=== PATIENT | male | born 1950 | race Caucasian/White ===

== ENCOUNTER 2023-07-02 12:33 | Inpatient (IN) ==
--- NOTE | 2023-07-02 13:08 | Emergency Department Note ---
History of Present Illness General Chief complaint: Fall Time Seen by Provider: 07/02/23 12:54 History of Present Illness Provider complaint: Recurrent falls 73-year-old male with history of Parkinson's disease on no blood thinners presents emergency department for recurrent falls. Patient reports he fell 4 times and could not get up to Call EMS. Patient states he does not have any pain. Patient states on the fourth time they state he could not refuse to come to the emergency department they brought him here even though he does not want to be here. Patient states she keeps falling because his is currently ill who usually resides with him and she is in a assisted. Patient denies any pain. No fevers. No nausea vomiting or diarrhea. Home Medications Medication Instructions Recorded Confirmed Type L.acidophilus-L.plantarum-B.animalis-B.longum 1 cap PO TIDM 07/02/23 07/02/23 History 2 billion cell capsule (Probiotic Acidophilus Beads) acetaminophen 500 mg tablet 500 - 1,000 mg PO DIRECTED PRN 07/02/23 07/02/23 History (Tylenol Extra Strength) PAIN/FEVER albuterol sulfate 2.5 mg/3 mL 2.5 mg inhalation DIRECTED PRN 07/02/23 07/02/23 History (0.083 %) solution for nebulization Shortness Of Breath Or Wheezing amlodipine 2.5 mg tablet 2.5 mg PO DAILY 07/02/23 07/02/23 History aspirin 81 mg tablet,delayed 81 mg PO DAILY 07/02/23 07/02/23 History release atorvastatin 20 mg tablet 20 mg PO DAILY 07/02/23 07/02/23 History carbidopa 25 mg-levodopa 100 mg 1 tab PO TID 07/02/23 07/02/23 History tablet carbidopa ER 50 mg-levodopa 200 mg 1 tab PO TID 07/02/23 07/02/23 History tablet,extended release cetirizine 10 mg tablet (Zyrtec) 10 mg PO DAILY PRN RHINITIS 07/02/23 07/02/23 History cholecalciferol (vitamin D3) 50 50 mcg PO DAILY 07/02/23 07/02/23 History mcg (2,000 unit) capsule (Vitamin D3) diphenhydramine HCl 50 mg capsule 50 mg PO HS PRN Itching 07/02/23 07/02/23 History finasteride 5 mg tablet 5 mg PO DAILY 07/02/23 07/02/23 History insulin human U-100 NPH-regulr See Rx Instructions .Route .COMPLEX 07/02/23 07/02/23 History 70-30 mix 100 unit/mL subcutaneous susp (Novolin 70/30 U-100 Insulin) lisinopril 20 1 tab PO DAILY 07/02/23 07/02/23 History mg-hydrochlorothiazide 25 mg tablet metformin 1,000 mg tablet 1,000 mg PO BIDM 07/02/23 07/02/23 History gzohwsacttyf-qkq-jzpju acid-vit 1 tab PO DAILY 07/02/23 07/02/23 History K-lycop 400 mcg-20 mcg-370 mcg tablet (Men's 50 Plus Multivitamin) nicotine (polacrilex) 4 mg gum 4 mg buccal DIRECTED PRN 07/02/23 07/02/23 History (Nicorette) Smoking Cessation omeprazole 20 mg capsule,delayed 20 mg PO BID 07/02/23 07/02/23 History release tamsulosin 0.4 mg capsule 0.4 mg PO DAILY 07/02/23 07/02/23 History tramadol 50 mg tablet 50 mg PO Q6H PRN Pain 07/02/23 07/02/23 History Allergies Allergy/AdvReac Type Severity Reaction Status Date / Time Iodinated Contrast Media Allergy Intermediate Hives Verified 07/02/23 16:20 Past Med/Surg History Medical History No pertinent family history Parkinson disease Surgical History No pertinent past surgical history Social History Smoking Status: Former smoker Preferred Language: [place] Feels Safe at Home: Yes Physical Exam Vital Signs Vital Signs - 24 hr 07/02/23 12:43 07/02/23 13:14 07/02/23 13:20 Temperature 37.4 C Temperature Source Oral Pulse Rate 94 H 80 81 Pulse Rate from SpO2 Sensor 81 Respiratory Rate 14 19 Blood Pressure 164/98 H Blood Pressure Mean 120 Pulse Oximetry 94 Oxygen Delivery Method Sepsis Recent Fever Within 48 Hours No Sepsis New/Unexplained Change in Mental Status N/A Sepsis Action Taken by Nursing No Action Required 07/02/23 13:30 07/02/23 13:30 07/02/23 14:37 Temperature Temperature Source Pulse Rate 86 72 Pulse Rate from SpO2 Sensor 72 Respiratory Rate 25 H 20 Blood Pressure 136/98 Blood Pressure Mean 103 Pulse Oximetry 95 Oxygen Delivery Method Sepsis Recent Fever Within 48 Hours Sepsis New/Unexplained Change in Mental Status Sepsis Action Taken by Nursing 07/02/23 14:37 07/02/23 15:32 07/02/23 16:31 Temperature Temperature Source Pulse Rate 73 72 Pulse Rate from SpO2 Sensor Respiratory Rate 17 23 Blood Pressure 139/83 142/82 H 158/90 H Blood Pressure Mean 117 102 112 Pulse Oximetry 96 95 Oxygen Delivery Method Room Air Room Air Sepsis Recent Fever Within 48 Hours Sepsis New/Unexplained Change in Mental Status Sepsis Action Taken by Nursing 07/02/23 17:01 07/02/23 17:19 Temperature Temperature Source Pulse Rate 68 70 Pulse Rate from SpO2 Sensor Respiratory Rate 19 Blood Pressure 143/72 H Blood Pressure Mean 95 Pulse Oximetry 96 Oxygen Delivery Method Room Air Sepsis Recent Fever Within 48 Hours Sepsis New/Unexplained Change in Mental Status Sepsis Action Taken by Nursing Physical Exam GENERAL: He appears well-developed and well-nourished. He does not appear distressed. HENT: Exam performed. - Head: Normocephalic and atraumatic. EYES: Conjunctivae and EOM are normal. Pupils are equal, round, and reactive to light. Right eye exhibits no discharge. Left eye exhibits no discharge. No scleral icterus. NECK: Normal range of motion. Neck supple. No JVD present. No spinous process tenderness present. CV: Normal rate, regular rhythm, normal heart sounds and intact distal pulses. There is no peripheral edema. Palpable radial pulses bue. PULM/CHEST: Effort normal and breath sounds normal. No respiratory distress. No stridor. He has no wheezes. He has no rales. ABD: The abdomen is soft. He has no distension. No mass is present. There is no tenderness. There is no rebound, no guarding. MUSC/SKEL: Pelvis stable. LYMPH: No cervical adenopathy. NEURO: He is alert and oriented to person, place, and time. He has normal strength. No cranial nerve deficit or sensory deficit. Mild tremor of the left upper extremity. SKIN: Skin is warm and dry. He is not diaphoretic. PSYCH: He has a normal mood and affect. Behavior is normal. Judgment and thought content normal. Course Course 1254: The patient was evaluated in room B3. A complete history and physical exam was performed Medical Decision Making Laboratory Data Attestation: I reviewed the patient's lab results. 07/02/23 15:00 07/02/23 15:00 Lab Results 07/02/23 07/02/23 07/02/23 Range/Units 15:00 15:32 17:23 WBC 5.45 (4.8-10.8) K/ul RBC 4.50 L (4.70-6.10) M/uL Hgb 12.2 L (14.0-18.0) g/dl Hct 37.0 L (42.0-52.0) % MCV 82.2 (80.0-100.0) fL MCH 27.1 (25.0-34.0) pg MCHC 33.0 (32.0-36.0) g/dL RDW Std Deviation 41.5 (36.4-46.3) fL RDW Coeff of Monica 14.0 (11.5-14.5) % Plt Count 187 (130-400) K/uL MPV 10.9 (9.4-12.4) fL Immature Gran % (Auto) 0.4 % Neut % (Auto) 64.3 % Lymph % (Auto) 16.7 % Mccormick % (Auto) 17.1 % Eos % (Auto) 0.2 % Baso % (Auto) 1.3 % Neut # (Auto) 3.51 (1.40-6.50) K/uL Lymph # (Auto) 0.91 L (1.20-3.40) K/uL Mccormick # (Auto) 0.93 H (0.11-0.59) K/uL Eos # (Auto) 0.01 (0.00-0.50) K/uL Baso # (Auto) 0.07 (0.00-0.20) K/uL Immature Gran # (Auto) 0.02 (0.01-0.20) K/uL Sodium 137 (136-145) mmol/L Potassium 3.7 (3.5-5.1) mmol/L Chloride 103 (98-107) mmol/L Carbon Dioxide 27 (21-32) mmol/L Anion Gap 7 (3-11) BUN 21 (6-23) mg/dl Creatinine 1.39 (0.6-1.4) mg/dl Est Cr Clr Drug Dosing 66.7 ml/min Est GFR ( Amer) 58.7 ml/min Est GFR (Non-Af Amer) 50.6 ml/min BUN/Creatinine Ratio 15.1 (10-20) Glucose 59 L (70-99(Fasting)) mg/dl POC Glucose 58 L* (70-99) mg/dl Calcium 9.1 (8.6-10.3) mg/dl Urine Color Yellow Urine Appearance Clear (Clear) Urine pH 5.5 (4.5-7.5) Ur Specific [place] 1.022 (1.000-1.030) Urine Protein 3+ H (Negative) Urine Glucose (UA) Trace H (Negative) Urine Ketones Negative (Negative) Urine Blood Negative (Negative) Urine Nitrite Negative (Negative) Urine Bilirubin Negative (Negative) Urine Urobilinogen Negative (Negative) Ur Leukocyte Esterase Negative (Negative) Urine WBC (Auto) 1-5 (0-5) /hpf Urine RBC (Auto) 0-4 (0-4) /hpf U Hyaline Cast (Auto) 1-5 (0-5) /lpf U Epithel Cells (Auto) 10-20 H (0-5) /lpf Urine Bacteria (Auto) Negative (Negative) Imaging Data Attestation: I personally reviewed and interpreted this imaging study as follows: My Impression: Chest x-ray: Chest x-ray negative. Airway clear. No pneumothorax. No consolidation. No cardiomegaly or cephalization.. No free air under the diaphragm. No fractures of the skeletal structures. Pelvis x-ray: No acute fracture or dislocation Radiologist's Impression: Cervical Spine CT 07/02/23 13:[address] DOSE: 1186.28 mGy.cm HISTORY: fall TECHNIQUE: Multiaxial CT images of the cervical spine were performed and reformatted in the sagittal and coronal plane without the use of contrast. A dose lowering technique was utilized adhering to the principles of ALARA. COMPARISON: None. FINDINGS: No fractures. No subluxation. Prevertebral soft tissues and the C1-C2 interval are intact. No pneumothorax. IMPRESSION: No fractures within the cervical spine. ACT 112: Negative or not required by law. Electronically signed by: Stepan Zamudio M.D. 07/02/2023 2:[address] 07/02/23 13:00 CT head/brain wo con CLINICAL HISTORY: fall Technique: Contiguous axial CT images of the head were acquired from the base of the skull to the vertex without intravenous contrast administration. Images were viewed in brain, subdural and bone windows. Automated dose lowering techniques and/or adjustment according to patient size were utilized for this exam. Comparison: None available at the time of this dictation. Findings: Areas of decreased attenuation are present in the periventricular and subcortical white matter bilaterally consistent with small vessel ischemic disease. Generalized cerebral atrophy with commensurate enlargement of the ventricles, sulci, and cisterns is also present. There is no acute intracranial hemorrhage or evidence of acute territorial infarction. No shift of the midline structures, mass effect, or extra-axial abnormalities are shown. Atherosclerotic calcifications are present in the intracranial segments of the internal carotid arteries. Imaged portions of the paranasal sinuses and mastoid air cells are clear. The orbits appear normal. There are no acute fractures of the calvaria or scalp swelling. Impression: No acute intracranial hemorrhage, no evidence of acute territorial infarction or other acute intracranial disease process. ACT 112: Negative or not required by law. Electronically signed by: Jonatan Gale M.D. 07/02/2023 1:54 PM Chest X-Ray 07/02/23 13:01 SINGLE VIEW CHEST CLINICAL HISTORY: Fall. FINDINGS: An AP, portable, upright chest radiograph is obtained. No prior studies are available for comparison at the time of dictation. The heart is enlarged. The pulmonary vasculature is noncongested. There is mild bibasilar scarring/atelectasis. The lungs and pleural spaces are otherwise clear. No pneumothorax is seen. The skeletal structures are osteopenic. The bony thorax is grossly intact. IMPRESSION: No active disease in the chest. ACT 112: Negative or not required by law. Electronically signed by: Nicholas Bey M.D. 07/02/2023 1:38 PM Pelvis X-Ray 07/02/23 13:01 XR pelvis 1-2V routine CLINICAL HISTORY: fall. Pelvic pain. COMPARISON STUDY: None FINDINGS: No fracture or dislocation within the pelvis or hips. The sacrum is intact. Mild osteoarthritis within the bilateral hips. Soft tissues are unremarkable. IMPRESSION: No fracture or dislocation within the pelvis or hips. ACT 112: Negative or not required by law. Electronically signed by: Stepan Zamudio M.D. 07/02/2023 1:32 PM ECG Data Attestation: I personally reviewed and interpreted this ECG as follows: Rate (beats per minute): 92 Rhythm: + normal sinus ECG Intervals/blocks: + Normal QRS, + Normal SD and + Normal QT-c ECG ST segments: + Normal ST segments MDM Narrative Cardiac monitoring: An order was placed for continuous cardiac monitoring. The monitor shows a rate of 90 with sinus rhythm interpreted by me Vital signs stable. Labs and imaging within normal limits. 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 [facility] request of case management for the patient to be admitted for placement in assisted. Spoke with Jacey who accepted the patient to Dr. Norman service Impression & Plan Parkinson disease, Recurrent falls Discharge Plan Visit Data Chief Complaint: Fall ED Provider: Cody Mckeon Discharge Problem: Parkinson disease, Recurrent falls Patient Disposition: Admitted As Inpatient Forms Stand Alone Forms: [facility] Prescriptions Prescriptions: No Action atorvastatin 20 mg Tablet 20 mg PO DAILY albuterol sulfate [Proventil] 2.5 mg /3 mL (0.083 %) Solution For Nebulization 2.5 mg INHALATION DIRECTED PRN (Reason: Shortness Of Breath Or Wheezing) diphenhydramine HCl [Benadryl] 50 mg Capsule 50 mg PO HS PRN (Reason: Itching) cetirizine [Zyrtec] 10 mg Tablet 10 mg PO DAILY PRN (Reason: RHINITIS) carbidopa-levodopa 50-200 mg tablet extended release 1 tab PO TID Rx Instructions: TAKES AT 0700, 1000, & 1600 Novolin 70/30 U-100 Insulin 100 unit/mL (70-30) suspension See Rx Instructions .ROUTE .COMPLEX Rx Instructions: TAKES 39 UNITS QAM, THEN 35 UNITS QPM. amlodipine 2.5 mg tablet 2.5 mg PO DAILY aspirin 81 mg Tablet,Delayed Release (Dr/Ec) 81 mg PO DAILY tramadol 50 mg Tablet 50 mg PO Q6H PRN (Reason: Pain) acetaminophen [Tylenol Extra Strength] 500 mg Tablet 500 - 1,000 mg PO DIRECTED PRN (Reason: PAIN/FEVER) tamsulosin 0.4 mg capsule 0.4 mg PO DAILY nicotine (polacrilex) [Nicorette] 4 mg Gum 4 mg BUCCAL DIRECTED PRN (Reason: Smoking Cessation) metformin 1,000 mg tablet 1,000 mg PO BIDM omeprazole 20 mg capsule,delayed release(DR/EC) 20 mg PO BID Rx Instructions: TAKE 30 MINUTES PRIOR TO MEALS lisinopril-hydrochlorothiazide 20-25 mg Tablet 1 tab PO DAILY carbidopa-levodopa 25-100 mg tablet 1 tab PO TID Rx Instructions: TAKES AT 1300, 1900, & HS finasteride 5 mg tablet 5 mg PO DAILY cholecalciferol (vitamin D3) [Vitamin D3] 50 mcg (2,000 unit) Capsule 50 mcg PO DAILY Men's 50 Plus Multivitamin 400-20-370 mcg Tablet 1 tab PO DAILY Probiotic Acidophilus Beads 2 billion cell Capsule 1 cap PO TIDM Referrals Referrals: PCP,NO [Physician] -
--- NOTE | 2023-07-02 13:33 | XRay Report ---
XR pelvis 1-2V routine CLINICAL HISTORY: fall. Pelvic pain. COMPARISON STUDY: None FINDINGS: No fracture or dislocation within the pelvis or hips. The sacrum is intact. Mild osteoarthr itis within the bilateral hips. Soft tissues are unremarkable. IMPRESSION: No fracture or dislocation within the pelvis or hips. ACT 112: Negative or not required by law. Electronically signed by: Stepan Zamudio M.D. 07/02/2023 1:32 PM
--- NOTE | 2023-07-02 13:39 | XRay Report ---
SINGLE VIEW CHEST CLINICAL HISTORY: Fall. FINDINGS: An AP, portable, upright chest radiograph is obtained. No prior studies are available for c omparison at the time of dictation. The heart is enlarged. The pulmonary vasculature is noncongested. There is mild bibasilar scarring/atelectasis. The lungs and pleural spaces are otherwise clear. No p neumothorax is seen. The skeletal structures are osteopenic. The bony thorax is grossly intact. IMPRESSION: No active disease in the chest. ACT 112: Negative or not required by law. Electronically signed by: Nicholas Bey M.D. 07/02/2023 1:38 PM
--- NOTE | 2023-07-02 13:56 | CT Scan Report ---
CT head/brain wo con CLINICAL HISTORY: fall Technique: Contiguous axial CT images of the head were acquired from the base of the skull to the herrera chanell without intravenous contrast administration. Images were viewed in brain, subdural and bone [facility]. Automated dose lowering techniques and/or adjustment according to patient size were utilized for this exam. Comparison: None available at the time of this dictation. Findings: Areas of decreased attenuation are present in the periventricular and subcortical white matter bilate rally consistent with small vessel ischemic disease. Generalized cerebral atrophy with commensurate e nlargement of the ventricles, sulci, and cisterns is also present. There is no acute intracranial hem orrhage or evidence of acute territorial infarction. No shift of the midline structures, mass effect, or extra-axial abnormalities are shown. Atherosclerotic calcifications are present in the intracran ial segments of the internal carotid arteries. Imaged portions of the paranasal sinuses and mastoid air cells are clear. The orbits appear normal. There are no acute fractures of the calvaria or scalp swelling. Impression: No acute intracranial hemorrhage, no evidence of acute territorial infarction or other acute intracra nial disease process. ACT 112: Negative or not required by law. Electronically signed by: Jonatan Gale M.D. 07/02/2023 1:54 PM
--- NOTE | 2023-07-02 14:17 | CT Scan Report ---
CERVICAL SPINE CT CT DOSE: 1186.28 mGy.cm HISTORY: fall TECHNIQUE: Multiaxial CT images of the cervical spine were performed and reformatted in the sagittal and coronal plane without the use of contrast. A dose lowering technique was utilized adhering to th e principles of ALARA. COMPARISON: None. FINDINGS: No fractures. No subluxation. Prevertebral soft tissues and the C1-C2 interval are intact. No pneumothorax. IMPRESSION: No fractures within the cervical spine. ACT 112: Negative or not required by law. Electronically signed by: Stepan Zamudio M.D. 07/02/2023 2:15 PM
--- NOTE | 2023-07-02 15:19 | Electrocardiogram Report ---
Test Reason : Blood Pressure : / mmHG Vent. Rate : 092 BPM Atrial Rate : 092 BPM P-R Int : 174 ms QRS Dur : 092 ms QT Int : 352 ms P-R-T Axes : 036 038 027 degrees QTc Int : 435 ms Normal sinus rhythm Normal ECG No previous ECGs available Confirmed by Len Green ([id number]) on 07/02/2023 3:19:16 PM Referred By: Confirmed By:Len Green
[2023-07-02 15:50] LABS: Appearance Urine Clear (Clear); Bacteria Urine Automated Negative (Negative); Bilirubin Urine Negative (Negative); Blood Urine Negative (Negative); Color Urine Yellow; Glucose Urine UA Trace (Negative); Ketones Urine Negative (Negative); Leukocyte Esterase Urine Negative (Negative); Nitrite Urine Negative (Negative); Protein Urine 3+ (Negative); RBC Urine Automated 0-4 /hpf (0-4); Specific Gravity Urine 1.022 (1.000-1.030); Urobilinogen Urine Negative (Negative); pH Urine 5.5 (4.5-7.5)
[2023-07-02 15:58] LABS: BUN Creatinine Ratio 15.1 (10-20); Basophils # (auto) 0.07 K/uL (0.00-0.20); Basophils % (auto) 1.3 %; Calcium 9.1 mg/dl (8.6-10.3); Creatinine Clr Calc Pharmacy 66.7 ml/min; Eosinophils # (auto) 0.01 K/uL (0.00-0.50); Eosinophils % (auto) 0.2 %; Est GFR (African American) 58.7 ml/min; Est GFR (Non-African American) 50.6 ml/min; Hemoglobin 12.2 g/dl (14.0-18.0); Immature Granulocytes # (auto) 0.02 K/uL (0.01-0.20); Immature Granulocytes % (auto) 0.4 %; Lymphocytes # (auto) 0.91 K/uL (1.20-3.40); Lymphocytes % (auto) 16.7 %; Mean Corpuscular Hemoglobin 27.1 pg (25.0-34.0); Mean Corpuscular Volume 82.2 fL (80.0-100.0); Mean Platelet Volume 10.9 fL (9.4-12.4); Monocytes # (auto) 0.93 K/uL (0.11-0.59); Monocytes % (auto) 17.1 %; Neutrophils # (auto) 3.51 K/uL (1.40-6.50); Neutrophils % (auto) 64.3 %; Platelet Count 187 K/uL (130-400); Potassium 3.7 mmol/L (3.5-5.1); RDW Standard Deviation 41.5 fL (36.4-46.3); White Blood Count 5.45 K/ul (4.8-10.8)
--- NOTE | 2023-07-02 16:58 | History & Physical Report ---
<Statement entered by Cody Norman MD - 07/08/23 21:12> reviewed finding of rn hematology. examined patient . Date of Service July 02, 2023 Assessment & Plan (1) Weakness: (2) Recurrent falls: (3) Parkinson disease: Plan: Patient is 73 year old male with PMH Parkinson's, DM II, CKD III, HTN, BPH, GERD, DIANNE, depression, chronic anemia, and others listed below presented to ER with complaint of several falls today. Ambulates with use of cane at baseline CT head: No acute intracranial abnormality CT C-spine: No acute fracture Pelvics x-ray: No acute fracture No leukocytosis, random glucose: 59, no other significant electrolyte abn ormality Recurrent falls today and weakness likely secondary to underlying COVID-19 infection Fall precautions PT/OT eval Continue home Sinemet Follows with [facility] [place] neurology outpatient CBC, BMP in a.m. If patient requires inpatient rehab would like [facility] as his spouse is currently at [facility] (4) COVID-19: Plan: In ER patient afebrile, no hypoxia, vital stable. [employer] respiratory panel + SARS-CoV-2 PCR Chest x-ray: No acute infiltrate Rhinorrhea, otherwise without sore throat, cough, chest pain, shortness of breath Airborne isolation Currently not requiring supplemental oxygen. No indication for steroids or remdesivir Incentive spirometry, flutter valve CBC, BMP in am (5) Hypoglycemia: (6) Diabetes mellitus, type II: Plan: Random glucose in ER 59. Patient has not eaten today. He is unsure if he took his morning insulin Patient given apple juice and peanut butter crackers with repeat BSG 154 Diabetic diet A1c: 8.7 on 12/13/2022 Hold home metformin and Novolin 12/29 Basal bolus insulin per protocol (7) HTN (hypertension): Plan: Continue amlodipine, lisinopril, HCTZ (8) CKD (chronic kidney disease), stage III: Plan: Cr: 1.39. Baseline 1.2 Monitor renal functions, avoid nephrotoxic agents when possible (9) GERD (gastroesophageal reflux disease): Plan: Continue PPI (10) BPH (benign prostatic hyperplasia): Plan: Continue tamsulosin, finasteride (11) DIANNE (obstructive sleep apnea): Plan: CPAP at bedtime (12) Chronic anemia: Plan: Hgb: 12. Baseline Hgb 12 Monitor H&H DVT Prophylaxis Lovenox SQ Full Code as per discussion with pt Follows with Dr Lynch for routine care Pt was seen and care coordinated with Dr Norman. See addendum I spent a total of 76 minutes reviewing notes, outpatient records, labs, medication, coordinating, documenting and providing care for this patient excluding time spent in the performance of separately billed services. History of Present Illness Chief Complaint: Falls Primary Care Provider: Toi Lynch MD Patient is 73 year old male with PMH Parkinson's, DM II, CKD III, HTN, BPH, GERD, DIANNE, depression, chronic anemia, and others listed below presented to ER with complaint of several falls today. History obtained from patient as well as outpatient chart review. Patient states history ambulatory dysfunction and uses cane and hangs onto furniture and puckett at home to ambulate at baseline. He states he usually will have a couple of falls a month. Patient states when he does fall he is unable to get himself up and typically needs to call EMS for lift assist. Patient states today was feeling fatigued. He states he was ambulating through his house when he felt like he was falling forward and had fell to the floor. He states just generally feels weaker than baseline but denies any unilateral weakness. He was unable to get himself up and called EMS. Patient states had 3-4 falls today all requiring EMS for lift assist. The last fall they suggested patient be evaluated to ER. Patient denies any dizziness, chest pain, shortness of breath prior to falls. Denies hitting head or loss of consciousness. Patient reports chronic rhinorrhea and does not feel like he has had increased rhinorrhea. He denies any fever, chills, cough, shortness of breath. He is currently living home alone as his is currently in snf. States last week his COVID-19 and he was visiting her daily. Denies history of COVID-19 vaccine. Denies fever/chills, diaphoresis, N/V/D/C, VELÁSQUEZ, dizziness, syncope, vision changes, neck pain, CP, SOB, cough, sore throat, otalgia, abdominal pain, paresthesias, extremity edema, rashes, urinary symptoms. Allergies Allergy/AdvReac Type Severity Reaction Status Date / Time Iodinated Contrast Media Allergy Intermediate Hives Verified 07/02/23 16:20 Home Medications Medication Instructions Recorded Confirmed Type acetaminophen 500 mg tablet 500 - 1,000 mg PO DIRECTED PRN 07/02/23 07/02/23 History (Tylenol Extra Strength) PAIN/FEVER albuterol sulfate 2.5 mg/3 mL 2.5 mg inhalation DIRECTED PRN 07/02/23 07/02/23 History (0.083 %) solution for nebulization Shortness Of Breath Or Wheezing amlodipine 2.5 mg tablet 2.5 mg PO DAILY 07/02/23 07/02/23 History aspirin 81 mg tablet,delayed 81 mg PO DAILY 07/02/23 07/02/23 History release atorvastatin 20 mg tablet 20 mg PO DAILY 07/02/23 07/02/23 History carbidopa 25 mg-levodopa 100 mg 1 tab PO TID 07/02/23 07/02/23 History tablet carbidopa ER 50 mg-levodopa 200 mg 1 tab PO TID 07/02/23 07/02/23 History tablet,extended release cetirizine 10 mg tablet (Zyrtec) 10 mg PO DAILY PRN RHINITIS 07/02/23 07/02/23 History cholecalciferol (vitamin D3) 50 50 mcg PO DAILY 07/02/23 07/02/23 History mcg (2,000 unit) capsule (Vitamin D3) diphenhydramine HCl 50 mg capsule 50 mg PO HS PRN Itching 07/02/23 07/02/23 History finasteride 5 mg tablet 5 mg PO DAILY 07/02/23 07/02/23 History insulin human U-100 NPH-regulr See Rx Instructions .Route .COMPLEX 07/02/23 07/02/23 History 70-30 mix 100 unit/mL subcutaneous susp (Novolin 70/30 U-100 Insulin) lisinopril 20 1 tab PO DAILY 07/02/23 07/02/23 History mg-hydrochlorothiazide 25 mg tablet metformin 1,000 mg tablet 1,000 mg PO BIDM 07/02/23 07/02/23 History llezpemgtrwp-mqf-vaglu acid-vit 1 tab PO DAILY 07/02/23 07/02/23 History K-lycop 400 mcg-20 mcg-370 mcg tablet (Men's 50 Plus Multivitamin) nicotine (polacrilex) 4 mg gum 4 mg buccal DIRECTED PRN 07/02/23 07/02/23 History (Nicorette) Smoking Cessation omeprazole 20 mg capsule,delayed 20 mg PO BID 07/02/23 07/02/23 History release tamsulosin 0.4 mg capsule 0.4 mg PO DAILY 07/02/23 07/02/23 History tramadol 50 mg tablet 50 mg PO Q6H PRN Pain 07/02/23 07/02/23 History Past Med/Surg History Medical History Chronic anemia DIANNE (obstructive sleep apnea) BPH (benign prostatic hyperplasia) GERD (gastroesophageal reflux disease) CKD (chronic kidney disease), stage III HTN (hypertension) Diabetes mellitus, type II Parkinson disease Surgical History History of esophagogastroduodenoscopy (EGD) Hx of tonsillectomy History of gastric bypass Social History Smoking Status: Former smoker Preferred Language: [place] Leonean Feels Safe at Home: Yes Review of Systems Review of Systems: All systems reviewed & are unremarkable except as noted in HPI & below Physical Exam Physical Exam: General: no distress, obese Head: normocephalic, atraumatic Eyes: PERRL, EOM's intact, conjunctiva non-injected, anicteric ENT: normal inspection external ears, nose, +clear rhinorrhea, mucous membranes moist Neck: supple, trachea midline, non-tender Lungs: clear, no respiratory distress, no wheezing/rhonchi/rales CV: RRR, no murmur, no pretibial edema Abd: normal BS, soft, non-tender Ext: no cyanosis, no calf tenderness Neuro: A&O x 3, normal affect, +tremor, +pill rolling, strength 4/5 bilateral lower extremities, upper extremities 5/5 strength bilaterally Skin: warm, dry Results & Data Results & Data Vital Signs (Past 12 Hours) Vital Signs Temp Pulse Resp BP Pulse Ox 07/02/23 14:37 139/83 07/02/23 14:37 72 20 95 07/02/23 13:30 136/98 07/02/23 13:30 86 25 H 07/02/23 13:20 81 01/31/24 13:14 80 19 94 07/02/23 12:43 37.4 C 94 H 14 164/98 H Laboratory Results Short CBC 07/02/23 Range/Units 15:00 WBC 5.45 (4.8-10.8) K/ul Hgb 12.2 L (14.0-18.0) g/dl Hct 37.0 L (42.0-52.0) % Plt Count 187 (130-400) K/uL BMP 07/02/23 15:00 Sodium 137 Potassium 3.7 Chloride 103 Carbon Dioxide 27 BUN 21 Creatinine 1.39 Glucose 59 L Calcium 9.1 Urine 07/02/23 Range/Units 15:32 Urine Color Yellow Urine Appearance Clear (Clear) Urine pH 5.5 (4.5-7.5) Ur Specific [place] 1.022 (1.000-1.030) Urine Protein 3+ H (Negative) Urine Glucose (UA) Trace H (Negative) Diagnostic Findings Cervical Spine CT 07/02/23 13:[address] DOSE: 1186.28 mGy.cm HISTORY: fall TECHNIQUE: Multiaxial CT images of the cervical spine were performed and reformatted in the sagittal and coronal plane without the use of contrast. A dose lowering technique was utilized adhering to the principles of ALARA. COMPARISON: None. FINDINGS: No fractures. No subluxation. Prevertebral soft tissues and the C1-C2 interval are intact. No pneumothorax. IMPRESSION: No fractures within the cervical spine. ACT 112: Negative or not required by law. Electronically signed by: Stepan Zamudio M.D. 07/02/2023 2:[address] 07/02/23 13:00 CT head/brain wo con CLINICAL HISTORY: fall Technique: Contiguous axial CT images of the head were acquired from the base of the skull to the vertex without intravenous contrast administration. Images were viewed in brain, subdural and bone windows. Automated dose lowering techniques and/or adjustment according to patient size were utilized for this exam. Comparison: None available at the time of this dictation. Findings: Areas of decreased attenuation are present in the periventricular and subcortical white matter bilaterally consistent with small vessel ischemic disease. Generalized cerebral atrophy with commensurate enlargement of the ventricles, sulci, and cisterns is also present. There is no acute intracranial hemorrhage or evidence of acute territorial infarction. No shift of the midline structures, mass effect, or extra-axial abnormalities are shown. Atherosclerotic calcifications are present in the intracranial segments of the internal carotid arteries. Imaged portions of the paranasal sinuses and mastoid air cells are clear. The orbits appear normal. There are no acute fractures of the calvaria or scalp swelling. Impression: No acute intracranial hemorrhage, no evidence of acute territorial infarction or other acute intracranial disease process. ACT 112: Negative or not required by law. Electronically signed by: Jonatan Gale M.D. 07/02/2023 1:54 PM Chest X-Ray 07/02/23 13:01 SINGLE VIEW CHEST CLINICAL HISTORY: Fall. FINDINGS: An AP, portable, upright chest radiograph is obtained. No prior studies are available for comparison at the time of dictation. The heart is enlarged. The pulmonary vasculature is noncongested. There is mild bibasilar scarring/atelectasis. The lungs and pleural spaces are otherwise clear. No pneumothorax is seen. The skeletal structures are osteopenic. The bony thorax is grossly intact. IMPRESSION: No active disease in the chest. ACT 112: Negative or not required by law. Electronically signed by: Nicholas Bey M.D. 07/02/2023 1:38 PM Pelvis X-Ray 07/02/23 13:01 XR pelvis 1-2V routine CLINICAL HISTORY: fall. Pelvic pain. COMPARISON STUDY: None FINDINGS: No fracture or dislocation within the pelvis or hips. The sacrum is intact. Mild osteoarthritis within the bilateral hips. Soft tissues are unremarkable. IMPRESSION: No fracture or dislocation within the pelvis or hips. ACT 112: Negative or not required by law. Electronically signed by: Stepan Zamudio M.D. 07/02/2023 1:32 PM
[2023-07-02] MEDS ORDERED: DEXTROSE 50% 50 ML SYRINGE IV STA (17:47)
[2023-07-02 18:32] LABS: Adenovirus PCR Not Detected (NotDetected); Bordetella parapertussis PCR Not Detected (NotDetected); Bordetella pertussis PCR Not Detected (NotDetected); Chlamydia pneumoniae PCR Not Detected (NotDetected); Coronavirus 229E PCR Not Detected (NotDetected); Coronavirus HKU1 PCR Not Detected (NotDetected); Coronavirus NL63 PCR Not Detected (NotDetected); Coronavirus OC43PCR Not Detected (NotDetected); Human Metapneumovirus PCR Not Detected (NotDetected); Influenza A PCR Not Detected (NotDetected); Influenza B PCR Not Detected (NotDetected); Mycoplasma pneumoniae PCR Not Detected (NotDetected); Parainfluenza Virus 1 PCR Not Detected (NotDetected); Parainfluenza Virus 2 PCR Not Detected (NotDetected); Parainfluenza Virus 3 PCR Not Detected (NotDetected); Parainfluenza Virus 4 PCR Not Detected (NotDetected); Respiratory Syncytial VirusPCR Not Detected (NotDetected); Rhinovirus/Enterovirus PCR Not Detected (NotDetected)
[2023-07-02 18:40] LABS: Coronavirus CoV-2 (COVID19)PCR DETECTED (NotDetected)
[2023-07-02] MEDS ORDERED: CARBOHYDRATES FOR HYPOGLYCEMIA PO PRN (19:21)
[2023-07-02] MEDS ORDERED: DEXTROSE 50% 50 ML SYRINGE IV PRN (19:21)
[2023-07-02] MEDS ORDERED: ONDANSETRON INJ 2 MG/ML 2 ML VIAL IV PRN (19:21)
[2023-07-02] MEDS ORDERED: ALBUTEROL 0.083% NEBU SOLN 3 ML VIAL INH PRN (19:21)
[2023-07-02] MEDS ORDERED: POLYETHYLENE (MIRALAX) 17 GM PACK PO PRN (19:21)
[2023-07-02] MEDS ORDERED: ACETAMINOPHEN 325 MG TAB PO PRN (19:21)
[2023-07-02] MEDS ORDERED: GLUCOSE 10 TAB/TUBE PO PRN (19:21)
[2023-07-02] MEDS ORDERED: GLUCOSE 40% GEL 15 GM TUBE PO PRN (19:21)
[2023-07-02] MEDS ORDERED: GLUCAGON FOR INJ 1 MG VIAL SQ PRN (19:21)
[2023-07-02] MEDS: CARBIDOPA/LEVODOPA 25/100MG TAB PO SCH (20:53)
[2023-07-02] MEDS: INSULIN ASPART PER UNIT CHARGE SC SCH (20:58)
[2023-07-02] MEDS: LANTUS PER UNIT CHARGE SQ SCH (22:20)
[2023-07-03] MEDS: CARBIDOPA/LEVODOPA 50/200MG EXT REL TAB PO SCH ×3 (06:23→16:43)
[2023-07-03 07:34] LABS: Hematocrit (blood only) 34.2 % (42.0-52.0); Mean Corpuscular Hemoglobin 26.8 pg (25.0-34.0); Mean Corpuscular Hgb Conc 32.2 g/dL (32.0-36.0); Mean Corpuscular Volume 83.2 fL (80.0-100.0); Mean Platelet Volume 10.4 fL (9.4-12.4); Platelet Count 159 K/uL (130-400); RDW Coefficient of Variation 13.9 % (11.5-14.5); RDW Standard Deviation 42.1 fL (36.4-46.3); Red Blood Count 4.11 M/uL (4.70-6.10); White Blood Count 4.35 K/ul (4.8-10.8)
[2023-07-03 08:12] LABS: BUN Creatinine Ratio 13.4 (10-20); Calcium 8.7 mg/dl (8.6-10.3); Creatinine Clr Calc Pharmacy 68.1 ml/min; Est GFR (African American) 61.3 ml/min; Est GFR (Non-African American) 52.9 ml/min; Potassium 3.5 mmol/L (3.5-5.1)
[2023-07-03] MEDS ORDERED: BENZONATATE 100 MG CAPSULE PO PRN (08:12)
[2023-07-03] MEDS: ATORVASTATIN 20 MG TAB PO SCH (08:21)
[2023-07-03] MEDS: amLODIPine BESYLATE 5 MG TAB PO SCH (08:22)
[2023-07-03] MEDS: TAMSULOSIN HCL 0.4 MG CAP PO SCH (08:22)
[2023-07-03] MEDS: LISINOPRIL/HCTZ 20/25MG 1 TAB PO SCH (08:22)
[2023-07-03] MEDS: ASPIRIN 81 MG ECTAB PO SCH (08:23)
[2023-07-03] MEDS: PANTOprazole 40 MG TAB PO SCH (08:24)
[2023-07-03] MEDS: FINASTERIDE 5 MG TAB PO SCH (08:24)
[2023-07-03 08:40] LABS: Estimated Average Glucose 246 mg/dl; Hemoglobin A1C 10.2 % (4.5-5.6)
[2023-07-03] MEDS ORDERED: CHOLECALCIFEROL 25 MCG (1000 UNITS) TAB PO SCH (09:00)
[2023-07-03] MEDS: INSULIN ASPART PER UNIT CHARGE SC SCH ×4 (09:38→22:00)
[2023-07-03] MEDS: LANTUS PER UNIT CHARGE SQ SCH ×2 (09:39→21:59)
[2023-07-03] MEDS: ENOXAPARIN INJ 40 MG/0.4 ML SYR SQ SCH (09:47)
[2023-07-03] MEDS: FLUTICASONE PROPIONATE NA SPR 16 GM BTL SCH (09:47)
[2023-07-03] MEDS: CARBIDOPA/LEVODOPA 25/100MG TAB PO SCH ×3 (12:47→21:59)
[2023-07-03] MEDS ORDERED: LORATADINE 10 MG TAB PO PRN (13:10)
--- OUTSIDE RECORDS SUMMARY | 2023-07-03 13:55 | External Medical Summary | Summary of Care ---
Author Name Unknown Organization [facility] Address [address] [place] [address] Phone [phone] Care Team Providers Care Silk Screen Operator Name Role Phone Toi Buckner MD Primary Care Provider + Reason for Visit * Reason Comments eRx-Medication Refill Encounter Details Date Type Department Care Team (Late st Contact Info) Description 06/23/2023 Refill Family Practice [facility] [address] [place] [address] Toi Buckner MD [address] [place] [address] Vitamin D deficiency Allergies Active Allergy Reactions Criticality Noted Date Comments Iodinated Contrast Media 08/20/2013 Hives documented as of this encounter (statuses as of 06/23/2023) Medications Medication Sig Dispensed Refills Start Date End Date Status TYLENOL TABS 500 MG OR as needed 100 5 1 Active MENS MULTIVITAMIN PLUS PO TABS one daily 0 Active NICORETTE 4 MG MT GUM occasional 0 Active INSULIN SYRINGE-NEEDLE U-100 31G X 5/16" 1 ML MISCIndications:DM type 2, goal A1c below 7 use as directed 3 Box 11 5 Active ONE TOUCH ULTRASOFT LANCETS MISC 2 times a day. Use up to four times a day as directed 3 Box 3 5 Active Aspirin 81 MG Oral Tablet Delayed Release Take 1 Tablet by mouth in the morning. 0 Active Cetirizine HCl 10 MG Capsule Take 1 Capsule by mouth daily as needed for Rhinitis. 0 Active Glucose Blood (ONETOUCH ULTRA BLUE) STRP Use up to 4 times a day as directed. E11.9 400 Strip 1 8 Active Probiotic Product (PROBIOTIC ACIDOPHILUS BIOBEADS) Capsule Take 1 Cap by mouth three times a day with meals. 0 Active Atorvastatin Calcium 20 MG Oral Tablet (LIPITOR)Indication s:Type 2 diabetes mellitus with hemoglobin A1c goal of less than 8.0% (HCC) Take 1 Tablet by mouth in the morning. 1 Tab 0 0 Active CPAP every night at bedtime. 0 Active traMADol HCl 50 MG Oral Tablet (Ultram)Indications :Headache, unspecified headache type Take 1 Tablet by mouth every 6 hours as needed for Pain, Severe. 20 Tablet 0 1 Active diphenhydrAMINE HCl 50 MG Oral Capsule (Benadryl)Indicatio ns:Rash,Itch of skin Take 1 Capsule by mouth at bedtime as needed for Itching. 30 Capsule 0 3 Active NovoLIN 70/30 ReliOn (70-30) 100 UNIT/ML Subcutaneous Suspension (Insulin NPH Isophane & Regular)Indications :Type 2 diabetes mellitus with hemoglobin A1c goal of less than 8.0% (HCC) 39 Unit in AM 35n PM before meal 20 mL 5 3 Active amLODIPine Besylate 2.5 MG Oral Tablet (Norvasc) TAKE ONE TABLET BY MOUTH EVERY DAY 90 Tablet 3 3 Active Finasteride 5 MG Oral Tablet (Proscar)Indication s:BPH with obstruction/lower urinary tract symptoms TAKE ONE TABLET BY MOUTH EVERY DAY 90 Tablet 3 3 Active metFORMIN HCl 1000 MG Oral Tablet (Glucophage) TAKE ONE TABLET BY MOUTH IN THE MORNING AND IN THE EVENING WITH MEALS 180 Tablet 3 3 Active Tamsulosin HCl 0.4 MG Oral Capsule (Flomax)Indications :BPH with obstruction/lower urinary tract symptoms TAKE ONE CAPSULE BY MOUTH EVERY DAY 90 Capsule 3 3 Active Omeprazole 20 MG Oral Capsule Delayed Release (PriLOSEC)Indicatio ns:Gastroesophageal reflux disease with esophagitis without hemorrhage take 1 capsule by mouth twice daily 30 minutes before a meal 180 Capsule 1 3 Active Lisinopril-hydroCHL OROthiazide 20-25 MG Oral TabletIndications:H TN, goal below 140/80 TAKE ONE TABLET BY MOUTH IN THE MORNING 90 Tablet 3 3 Active Carbidopa-Levodopa ER 25-100 MG Oral Tablet Extended Release (Sinemet CR) TAKE ONE TABLET BY MOUTH AT BEDTIME 90 Tablet 1 3 Active Carbidopa-Levodopa ER 50-200 MG Oral Tablet Extended Release (Sinemet CR)Indications:Park inson's disease without dyskinesia or fluctuating manifestations 1 tablet 3x daily (7am, 10am, 4pm) 270 Tablet 1 3 Active Carbidopa-Levodopa 25-100 MG Oral Tablet (Sinemet) take 1 tablet at 1 pm and 1 tablet at 7 pm. 60 Tablet 5 3 Active Vitamin D3 50 MCG (2000 UT) Oral CapsuleIndications: Vitamin D deficiency TAKE ONE CAPSULE BY MOUTH EVERY DAY 90 Capsule 3 4 Active Vitamin D3 50 MCG (2000 UT) Oral CapsuleIndications: Vitamin D deficiency TAKE ONE CAPSULE BY MOUTH EVERY DAY 90 Capsule 3 3 06/23/19 24 Discontinued Hospital, Clinic, or Other Facility Administered Medication Ordered Dose Route Frequency Start Date End Date Status albuterol sulfate (PROVENTIL) (2.5 MG/3ML) 0.083% inhalation solution 2.5 mgIndications:Chronic coughing 2.5 mg NEBULIZER Q4H PRN 01/20/2019 Active documented as of this encounter (statuses as of 06/23/2023) Active Problems Problem Noted Date Diagnosed Date Type 2 diabetes mellitus wit h stage 3 chronic kidney disease, with long-term current use of insulin 09/07/2021 Vitamin D deficiency 03/15/2021 Chronic kidney disease, stage 3a 10/10/2020 Overview: Per CKD protocol Hypertensive kidney disease with stage 3a chronic kidney disease 04/10/2020 Overview: Per CKD protocol Dyslipidemia, goal LDL below 100 02/23/2020 Gastroesophageal reflux disease with esophagitis 02/23/2020 DIANNE on CPAP 01/14/2019 Type 2 diabetes mellitus with chronic kidney dis ease 08/17/2018 Chronic right-sided low back pain with right-smita ed sciatica 12/27/2017 Parkinson disease 10/29/2016 Intestinal postoperative nonabsorption 7 Major depressive disorder, recurrent episode, mo derate 04/30/2016 Morbid obesity due to excess calories 04/30/2016 Hip pain, right 12/26/2015 HTN, goal below 140/90 11/13/2015 Overview: Per HTN Protocol PUD (peptic ulcer disease) 09/14/2015 Anastomotic ulcer S/P gastric bypass 05/12/2015 Overview: Jun 2014 Routine general medical exam ination at a health care facility 11/10/2013 Overview: 02/19 cologuard WNL 08/14 EGD WNL 06/16 EGD fndings. biopsy WNL . Unable to fast for colonoscopy due to abd pain post gastric bypass. Erectile dysfunction 10/16/2013 Type 2 diabetes mellitus wit h hemoglobin A1c goal of less than 8.0% 08/20/2013 Overview: NEEDs discuss statin, have ANGELIKA, repeat CBC/iron/b12,fol 08/13 a1c 6.7. 12/12 6.0 06/14 9.3. 2011 microalb neg. ICD-10 update of inactive term S/P gastric bypass 08/20/2013 Overview: Surgery October 2012. Hx DIANNE Displacement of lumbar inter vertebral disc without myelopathy Overview: On disability Frozen shoulder Overview: left documented as of this encounter (statuses as of 06/23/2023) Resolved Problems Problem Noted Date Diagnosed Date Resolved Date Hypertensive kidney disease with chronic kidney disease stage III 01/07/2019 04/13/2020 Overview: Per CKD protocol Kidney disease, chronic, sta ge III (GFR 30-59 ml/min) 10/07/2016 01/14/2019 Overview: Per CKD protocol #1 HTN, goal below 140/80 08/20/201311/15 Overview: Per HTN Protocol documented as of this encounter (statuses as of 06/23/2023) Immunizations Name Administration Dates Next Due Pneumococcal Conjugate Vacc, 13 Valent (Prevnar) 01/14/2019 Pneumococcal Polysaccharide PPV23 (Pneumovax) TDAP (age 10 and older)(Boostrix) 11/10/2013 documented as of this encounter Social History Tobacco Use Types Packs/Day Years Used Date Smoking Tobacco: Former Cigarettes 1 48 Q uit: 06/22/2010 Cigars Smokeless Tobacco: Never Comments:smokes pipe 2020 Alcohol Use Standard Drinks/Week Comments No 0 (1 standard drink = 0.6 oz pur e alcohol) PHQ-2 Answer Date Recorded PHQ Adult Total Score 0 11/20/2020 Hunger Vital Sign Answer Date Recorded Within the past 12 months, y ou worried that your food would run out before you got the money to buy more. Never true 11/21/19 21 Within the past 12 months, t he food you bought just didn't last and you didn't have money to get more. Never true 11/20/2020 Sex and Gender Information Value Date Recorded Sex Assigned at Not on file Gender Identity Not on file Sexual Orientation Not on file Job Start Date Occupation Industry Not on file Not on file Not on file documented as of this encounter Miscellaneous Notes * Telephone Encounter - Toi Buckner MD - 06/23/2023 10:49 PM EST Signed Prescriptions: Disp Refills Vitamin D3 50 MCG (2000 UT) Oral Capsule 90 Cap*3 Sig: TAKE ONE CAPSULE BY MOUTH EVERY DAY Authorizing Provider: TOI BUCKNER * Telephone Encounter - Mindy Landaverde LPN - 06/23/2023 3:19 PM ESTPending Prescriptions: Disp Refills Vitamin D3 50 MCG (2000 UT) Oral Capsule [*90 Cap*0 Sig: TAKE ONE CAPSULE BY MOUTH EVERY DAY * Telephone Encounter - Samantha Jackson - 06/23/2023 2:11 PM ESTPending Prescriptions: Disp Refills Vitamin D3 50 MCG (1999) Oral Capsule [*90 Cap*0 Sig: TAKE ONE CAPSULE BY MOUTH EVERY DAY documented in this encounter Plan of Treatment Upcoming Encounters Date Type Department Care Team (Late st Contact Info) Description 07/11/2023 8:40 AM EST Office Visit Family Practice [facility] [address] [place] [place] [id number] Toi Buckner MD [address] [place] [place] [address] 09/23/2023 1:40 PM EDT Office Visit Neurology [facility] [address] [place] [address] [place], [address] [place] [id number] Health Maintenance Due Date Last Done Comments COVID-19 Vaccine (#1) 1950 Colonoscopy 1997 Sigmoidoscopy 1997 Zoster Vaccines (1 of 2) 2002 Hepatitis B (1 of 3 - Risk 3-dose series) 2012 Fecal Occult Blood Test 06/24/2018 06/24/19 18, 05/12/2015, 01/12/2014 Diabetic Foot Exam 08/23/2021 08/23/2020, 0 12/26/2016, 12/26/2015, Additional history exists Depression Screening 11/20/2021 11/20/2020 Albumin/Creatinine Ratio 03/08/2022 021, 02/22/2020, 03/05/2019, Additional history exists Diabetic Eye Exam 10/22/2022 10/22/2021, , 10/16/2020, Additional history exists Influenza Vaccine (FLU shot) (#1) 2023 Cologuard 03/09/2023 03/09/2020, 06/2019, 03/02/2020 Colorectal Cancer Screening 03/09/2023 GFR 06/15/2023 12/13/2022, 05/02, 05/17/2021, Additional history exists HbA1c 06/15/2023 12/13/2022, 10/2021, 05/17/2021, Additional history exists DTaP,Tdap,and Td Vaccines (2 - Td or Tdap) 11/11/2023 11/10/2013 B-12 12/14/2023 12/13/2022, 11/2020, 08/21/2020, Additional history exists CKD HGB USE SMARTSET 76905 12/14/202312/13, 05/17/2021, 05/17/2021, Additional history exists CKD PHOS USE SMARTSET [id number] 12/14/2023 12/13/2022 Lipid Panel 12/14/2027 12/13/2022, 11/30, 03/08/2021, Additional history exists Hepatitis C Screening Completed 09/09/2014 AAA Screening Completed 06/24/2017 LUNG CANCER SCREENING - USE SMARTSET 98220 Completed 03/17/2019, 06/24/2017 Pneumococcal Vaccine: 65+ Years Completed 03/08/2021, 01/14/2019, 12/27/2008 GARDASIL-HPV IMMUNIZATION SERIES Aged Out No longer eligible based on patient's age to complete this topic MENINGOCOCCAL (MENACTRA/MENVEO) Aged Out No longer eligible based on patient's age to complete this topic documented as of this encounter Medical Devices Implanted Type Area House Moving Supervisor Device Identifier Shelf Expiration Date Model / Serial / Lot Lens 21.0 Mx60e - [id number] - [id number] Implanted:Qty: 1 on 10/28/2019 by Lito Rodriguez MD at OR [facility] Right: Eye [employer] 06/01/2022 [id number] / [id number] / [id number] Lens 20.5 Mx60e - [id number] - [id number] Implanted:Qty: 1 on 11/09/2019 by Lito Rodriguez MD at OR [facility] Left: Eye [employer]OM[employer] 09/29/2021 [id number]-23.5 / [id number] / [id number] documented as of this encounter Visit Diagnoses Diagnosis Vitamin D deficiency Unspecified vitamin D deficiency documented in this encounter Advance Directives Latest Code Status on File Code Status Date Activated Date Inactivated Comments Full Code 09/04/2018 7:54 AM 09/04/2018 12:48 PM This o rder reflects the patients wishes and were consensually agreed upon. Question Answer Comments Discussion of Advance Directives occurred with: Patient Does the patient have a Living Will? No Does the patient have Health Care Power of Paper Deliverer? No Care Teams Silk Screen Operator Relationship Specialty Start Date End Date Toi Buckner MD [address] [place] [id number] PCP - General Family Medicine 06/23/14 documented as of this encounter
--- OUTSIDE RECORDS SUMMARY | 2023-07-03 13:56 | External Medical Summary | Summary of Care ---
Author Name Unknown Organization [facility] Address [address] [place] [address] Phone [phone] Care Team Providers Care Barrel Turner Name Role Phone Toi Lynch MD Primary Care Provider + Reason for Visit * Reason Comments eRx-Medication Refill Encounter Details Date Type Department Care Team (Late st Contact Info) Description 03/18/2023 Refill Neurology [facility] [address] [place] [address] Mark Palencia, DO [address] [place] [address] Allergies Active Allergy Reactions Criticality Noted Date Comments Iodinated Contrast Media 08/20/2013 Hives documented as of this encounter (statuses as of 2023) Medications Medication Sig Dispensed Refills Start Date End Date Status TYLENOL TABS 500 MG OR as needed 100 5 03/27/2001 Active MENS MULTIVITAMIN PLUS PO TABS one daily 0 Active NICORETTE 4 MG MT GUM occasional 0 Active INSULIN SYRINGE-NEEDLE U-100 31G X /" 1 ML MISCIndications:D M type 2, goal A1c below 7 use as directed 3 Box 11 09/01/2014 Active ONE TOUCH ULTRASOFT LANCETS MISC 2 times a day. Use up to four times a day as directed 3 Box 3 09/06/2014 Active Aspirin 81 MG Oral Tablet Delayed Release Take 1 Tablet by mouth in the morning. 0 Active Cetirizine HCl 10 MG Capsule Take 1 Capsule by mouth daily as needed for Rhinitis. 0 Active Glucose Blood (ONETOUCH ULTRA BLUE) STRP Use up to 4 times a day as directed. E11.9 400 Strip 1 12/27/2017 Active Probiotic Product (PROBIOTIC ACIDOPHILUS BIOBEADS) Capsule Take 1 Cap by mouth three times a day with meals. 0 Active Atorvastatin Calcium 20 MG Oral Tablet (LIPITOR)Indicati ons:Type 2 diabetes mellitus with hemoglobin A1c goal of less than 8.0% (HCC) Take 1 Tablet by mouth in the morning. 1 Tab 0 02/23/2020 Active CPAP every night at bedtime. 0 Active traMADol HCl 50 MG Oral Tablet (Ultram)Indicatio ns:Headache, unspecified headache type Take 1 Tablet by mouth every 6 hours as needed for Pain, Severe. 20 Tablet 0 05/17/2021 Active Vitamin D3 50 MCG (2000 UT) Oral CapsuleIndication s:Vitamin D deficiency TAKE ONE CAPSULE BY MOUTH EVERY DAY 90 Capsule 3 06/11/2022 Active diphenhydrAMINE HCl 50 MG Oral Capsule (Benadryl)Indicat ions:Rash,Itch of skin Take 1 Capsule by mouth at bedtime as needed for Itching. 30 Capsule 0 08/05/2022 Active NovoLIN 70/30 ReliOn (70-30) 100 UNIT/ML Subcutaneous Suspension (Insulin NPH Isophane & Regular)Indicatio ns:Type 2 diabetes mellitus with hemoglobin A1c goal of less than 8.0% (HCC) 39 Unit in AM 35n PM before meal 20 mL 5 09/30/2022 Active Carbidopa-Levodop a 25-100 MG Oral Tablet (Sinemet) take 1 tablet at 1pm and 1 tablet at 7pm. 60 Tablet 5 10/17/2022 Active amLODIPine Besylate 2.5 MG Oral Tablet (Norvasc) TAKE ONE TABLET BY MOUTH EVERY DAY 90 Tablet 3 12/17/2022 Active Finasteride 5 MG Oral Tablet (Proscar)Indicati ons:BPH with obstruction/lower urinary tract symptoms TAKE ONE TABLET BY MOUTH EVERY DAY 90 Tablet 3 12/25/2022 Active metFORMIN HCl 1000 MG Oral Tablet (Glucophage) TAKE ONE TABLET BY MOUTH IN THE MORNING AND IN THE EVENING WITH MEALS 180 Tablet 3 12/30/2022 Active Tamsulosin HCl 0.4 MG Oral Capsule (Flomax)Indicatio ns:BPH with obstruction/lower urinary tract symptoms TAKE ONE CAPSULE BY MOUTH EVERY DAY 90 Capsule 3 01/25/2023 Active Omeprazole 20 MG Oral Capsule Delayed Release (PriLOSEC)Indicat ions:Gastroesopha geal reflux disease with esophagitis without hemorrhage take 1 capsule by mouth twice daily 30 minutes before a meal 180 Capsule 1 01/29/2023 Active Lisinopril-hydroC HLOROthiazide 20-25 MG Oral TabletIndications :HTN, goal below 140/80 TAKE ONE TABLET BY MOUTH IN THE MORNING 90 Tablet 3 02/10/2023 Active Carbidopa-Levodop a ER 25-100 MG Oral Tablet Extended Release (Sinemet CR) TAKE ONE TABLET BY MOUTH AT BEDTIME 90 Tablet 1 02/25/2023 Active Carbidopa-Levodop a ER 50-200 MG Oral Tablet Extended Release (Sinemet CR) Take 1 Tablet by mouth at bedtime. 90 Tablet 1 03/18/2023 Active Carbidopa-Levodop a ER 50-200 MG Oral Tablet Extended Release (Sinemet CR) TAKE 1 TABLET AT 7AM, 1 TABLET AT 10AM AND 1 TABLET AT 4PM. 90 Tablet 0 02/18/2023 03/18/20 Discontinued Hospital, Clinic, or Other Facility Administered Medication Ordered Dose Route Frequency Start Date End Date Status albuterol sulfate (PROVENTIL) (2.5 MG/3ML) 0.083% inhalation solution 2.5 mgIndications:Chronic coughing 2.5 mg NEBULIZER Q4H PRN 01/20/2019 Active documented as of this encounter (statuses as of 2023) Active Problems Problem Noted Date Diagnosed Date [...] as of this encounter (statuses as of 2023) Resolved Problems Problem Noted Date Diagnosed Date Resolved Date Hypertensive kidney disease with chronic kidney disease stage III 01/07/2019 04/13/2020 Overview: Per CKD protocol Kidney disease, chronic, sta ge III (GFR 30-59 ml/min) 10/07/2016 01/14/2019 Overview: Per CKD protocol #1 HTN, goal below 140/80 08/20/201311/15 Overview: Per HTN Protocol documented as of this encounter (statuses as of 2023) Immunizations Name Administration Dates Next Due Pneumococcal [...] encounter Miscellaneous Notes * Telephone Encounter - Mallory Resendiz PHARM Tech - 2023 9:49 AM EST Pt called stating carbidopa levodopa 50-200 mg states to take 1 tab at bedtime but pt said he takesit 3 times a day. Pt said he needs a new script sent. Thanks, Mallory Resendiz Media Sales Consultant [facility] ([facility]) 2023,9:50 AM * Telephone Encounter - Darcie Johns MD - 03/18/2023 4:00 PM EDTSigned Prescriptions: Disp Refills Carbidopa-Levodopa ER 50-200 MG Oral Table*90 Tab*1 Sig: Take 1 Tablet by mouth at bedtime. Authorizing Provider: DARCIE JOHNS * Telephone Encounter - Britany Kuo LPN - 03/18/2023 3:55 PM EDTPending Prescriptions: Disp Refills Carbidopa-Levodopa ER 50-200 MG Oral Table*90 Tab*1 Sig: Take 1 Tablet by mouth at bedtime. * Telephone Encounter - Clemencia Kurtz [facility] - 03/18/2023 3:24 PM EDTPending Prescriptions: Disp Refills Carbidopa-Levodopa ER 50-200 MG Oral Table*90 Tab*1 Sig: Take 1 Tablet by mouth at bedtime. * Telephone Encounter - Clemencia Kurtz [facility] - 03/18/2023 3:18 PM EDT Forwarding to provider for review Refill request received for Sinemet ER 50/200 with TID directions also active on med list with TID directions. Per 03/11/23 OV note: Car Salmon is a pleasant 72 year old male with tremor predominant parkinson's disease current onimmediate release Sinemet 25/100 5x times daily and extended release Sinemet 50/200 one tablet nightly Rx pended for dose change, please review and approve if appropriate Pending Prescriptions: Disp Refills Carbidopa-Levodopa ER 50-200 MG Oral Tabl*90 Tab*1 Sig: Take 1 Tablet by mouth at bedtime. Thanks, Clemencia Kurtz, PharmD Clinical Pharmacist [facility] ([facility]) (formerly [facility]pharm[facility]) [phone] 03/18/2023 3:22 PM documented in this encounter Plan of Treatment Upcoming Encounters Date Type Department Care Team (Late st Contact Info) Description 07/11/2023 8:40 AM EST Office Visit Family Practice [facility] [address] [place] [address] Toi Lynch MD [address] [place] [address] 09/23/2023 1:40 PM EDT Office Visit Neurology [facility] [address] [place] [address] Mark Palencia, DO [address] [place] [address] Health Maintenance Due Date Last Done Comments COVID-19 Vaccine (#1) 1952 Colonoscopy 1997 Sigmoidoscopy 1997 Zoster Vaccines (1 of 2) 2002 Hepatitis B (1 of 3 - Risk 3-dose series) 2012 Fecal Occult Blood Test 06/24/2018 06/24/19 18, 05/12/2015, 01/12/2014 Diabetic Foot Exam 08/23/2021 08/23/2020, 0 12/26/2016, 12/26/2015, Additional history exists Depression Screening 11/20/2021 11/20/2020 Albumin/Creatinine Ratio 03/08/20222 021, 02/22/2020, 03/05/2019, Additional history exists Diabetic Eye Exam 10/22/2022 10/22/2021, , 10/16/2020, Additional history exists Influenza Vaccine (FLU shot) (#1) 2023 Cologuard 03/09/2023 03/09/2020, 1006/2019, 03/02/2020 Colorectal Cancer Screening 03/09/2023 GFR 06/15/2023 12/13/2022, 05/02, 05/17/2021, Additional history exists HbA1c 06/15/2023 12/13/2022, 04/0 10/2021, 05/17/2021, Additional history exists DTaP,Tdap,and Td Vaccines (2 - Td or Tdap) 11/11/2023 11/10/2013 B-12 12/14/2023 12/13/2022, 1011/2020, 08/21/2020, Additional history exists CKD HGB USE SMARTSET 31132 12/14/202312/13, 05/17/2021, 05/17/2021, Additional history exists CKD PHOS USE SMARTSET 20603 12/14/2023 12/13/2022 Lipid Panel 12/14/2027 12/13/2022, 11/30, 03/08/2021, Additional history exists Hepatitis C Screening Completed 09/09/2014 AAA Screening Completed 06/24/2017 LUNG CANCER SCREENING - USE SMARTSET 00642 Completed 03/17/2019, 06/24/2017 Pneumococcal Vaccine: 65+ Years Completed 03/08/2021, 01/14/2019, 12/27/2008 GARDASIL-HPV IMMUNIZATION SERIES Aged Out No longer eligible based on patient's age to complete this topic MENINGOCOCCAL (MENACTRA/MENVEO) Aged Out No longer eligible based on patient's age to complete this topic documented as of this encounter Medical Devices Implanted Type Area Kitchen Hand Device Identifier Shelf Expiration Date Model / Serial / Lot Lens 21.0 Mx60e - [id number] - [id number] Implanted:Qty: 1 on 10/28/2019 by Lito Rodriguez MD at [facility] Right: Eye BAUSCH & LOMB 06/01/2022 [id number]-89.0 / [id number] / [id number] Lens 20.5 Mx60e - [id number] - [id number] Implanted:Qty: 1 on 11/09/2019 by Lito Rodriguez MD at [facility] Left: Eye BAUSCH & LOMB 09/29/2021 [id number]-[id number] / [id number] / [id number] documented as of this encounter Advance Directives Latest Code Status on File Code Status Date Activated Date Inactivated Comments Full Code 09/04/2018 7:54 AM 09/04/2018 12:48 PM This o rder reflects the patients wishes and were consensually agreed upon. Question Answer Comments Discussion of Advance Directives occurred with: Patient Does the patient have a Living Will? No Does the patient have Health Care Power of Logging Rafter Laborer? No Care Teams Barrel Turner Relationship Specialty Start Date End Date Toi Lynch MD [address] [place] [address] PCP - General Family Medicine 06/23/14 documented as of this encounter
--- OUTSIDE RECORDS SUMMARY | 2023-07-03 13:56 | External Medical Summary | Summary of Care ---
Author Name Unknown Organization [facility] Address [address] [place] [address] Phone [phone] Care Team Providers Care Box Blank Machine Operator Name Role Phone Toi Lynch MD Primary Care Provider + Reason for Visit * Reason Comments eRx-Medication Refill Encounter Details Date Type Department Care Team (Late st Contact Info) Description 05/08/2023 Refill Neurology [facility] [address] [facility] [place] [address] Aga Ochoa PA-C [address] [facility] [place] [address] Allergies Active Allergy Reactions Criticality Noted Date Comments Iodinated Contrast Media 08/20/2013 Hives documented as of this encounter (statuses as of 05/08/2023) Medications Medication Sig Dispensed Refills Start Date End Date Status TYLENOL TABS 500 MG OR as needed 100 5 03/27/2001 Active MENS MULTIVITAMIN PLUS PO TABS one daily 0 Active NICORETTE 4 MG MT GUM occasional 0 Active INSULIN SYRINGE-NEEDLE U-100 31G X /" 1 ML MISCIndications:DM type 2, goal A1c [...] Active Atorvastatin Calcium 20 MG Oral Tablet (LIPITOR)Indications :Type 2 diabetes mellitus with hemoglobin A1c goal of less than 8.0% (HCC) Take 1 Tablet by mouth in the morning. 1 Tab 0 02/23/2020 Active CPAP every night at bedtime. 0 Active traMADol HCl 50 MG Oral Tablet (Ultram)Indications: Headache, unspecified headache type Take 1 Tablet by mouth every 6 hours as needed for Pain, Severe. 20 Tablet 0 05/17/2021 Active Vitamin D3 50 MCG (1999 UT) Oral CapsuleIndications:V itamin D deficiency TAKE ONE CAPSULE BY MOUTH EVERY DAY 90 Capsule 3 06/11/2022 Active diphenhydrAMINE HCl 50 MG Oral Capsule (Benadryl)Indication s:Rash,Itch of skin Take 1 Capsule by mouth at bedtime as needed for Itching. 30 Capsule 0 08/05/2022 Active NovoLIN 70/30 ReliOn (70-30) 100 UNIT/ML Subcutaneous Suspension (Insulin NPH Isophane & Regular)Indications: Type 2 diabetes mellitus with hemoglobin A1c goal of less than 8.0% (HCC) 39 Unit in AM 35n PM before meal 20 mL 5 09/30/2022 Active amLODIPine Besylate 2.5 MG Oral Tablet (Norvasc) TAKE ONE TABLET BY MOUTH EVERY DAY 90 Tablet 3 12/17/2022 Active Finasteride 5 MG Oral Tablet (Proscar)Indications :BPH with obstruction/lower urinary tract symptoms TAKE ONE TABLET BY MOUTH EVERY DAY 90 Tablet 3 12/25/2022 Active metFORMIN HCl 1000 MG Oral Tablet (Glucophage) TAKE ONE TABLET BY MOUTH IN THE MORNING AND IN THE EVENING WITH MEALS 180 Tablet 3 12/30/2022 Active Tamsulosin HCl 0.4 MG Oral Capsule (Flomax)Indications: BPH with obstruction/lower urinary tract symptoms TAKE ONE CAPSULE BY MOUTH EVERY DAY 90 Capsule 3 01/25/2023 Active Omeprazole 20 MG Oral Capsule Delayed Release (PriLOSEC)Indication s:Gastroesophageal reflux disease with esophagitis without hemorrhage take 1 capsule by mouth twice daily 30 minutes before a meal 180 Capsule 1 01/29/2023 Active Lisinopril-hydroCHLO ROthiazide 20-25 MG Oral TabletIndications:HT N, goal below 140/80 TAKE ONE TABLET BY MOUTH IN THE MORNING 90 Tablet 3 02/10/2023 Active Carbidopa-Levodopa ER 25-100 MG Oral Tablet Extended Release (Sinemet CR) TAKE ONE TABLET BY MOUTH AT BEDTIME 90 Tablet 1 02/25/2023 Active Carbidopa-Levodopa ER 50-200 MG Oral Tablet Extended Release (Sinemet CR)Indications:Parki nson's disease without dyskinesia or fluctuating manifestations 1 tablet 3x daily (7am, 10am, 4pm) 270 Tablet 1 04/23/2023 Active Carbidopa-Levodopa 25-100 MG Oral Tablet (Sinemet) take 1 tablet at 1 pm and 1 tablet at 7 pm. 60 Tablet 5 05/07/2023 Active Hospital, Clinic, or Other Facility Administered Medication Ordered Dose Route Frequency Start Date End Date Status albuterol sulfate (PROVENTIL) (2.5 MG/3ML) 0.083% inhalation solution 2.5 mgIndications:Chronic coughing 2.5 mg NEBULIZER Q4H PRN 01/20/2019 Active documented as of this encounter (statuses as of 05/08/2023) Active Problems Problem Noted Date Diagnosed Date [...] as of this encounter (statuses as of 05/08/2023) Resolved Problems Problem Noted Date Diagnosed Date Resolved Date Hypertensive kidney disease with chronic kidney disease stage III 01/07/2019 04/13/2020 Overview: Per CKD protocol Kidney disease, chronic, sta ge III (GFR 30-59 ml/min) 10/07/2016 01/14/2019 Overview: Per CKD protocol #1 HTN, goal below 140/80 08/20/201311/15 Overview: Per HTN Protocol documented as of this encounter (statuses as of 05/08/2023) Immunizations Name Administration Dates Next Due Pneumococcal [...] encounter Miscellaneous Notes * Telephone Encounter - Samantha Jackson - 05/08/2023 3:19 PM ESTRefused Prescriptions: Disp Refills Carbidopa-Levodopa 25-100 MG Oral Tablet (*60 Tab*0 Sig: take 1 tablet at 1 pm and 1 tablet at 7 pm.Refused By: SAMANTHA JACKSONReason for Refusal: Duplicate Requ est documented in this encounter Plan of Treatment Upcoming Encounters Date Type Department Care Team (Late st Contact Info) Description 07/11/2023 8:40 AM EST Office Visit Family Practice [facility] [address] [address] Toi Lynch MD [address] [address] [address] 09/23/2023 1:40 PM EDT Office Visit Neurology [facility] [address] [place] [address] Mark Palencia, DO [address] [place], [place] [address] Health Maintenance Due Date Last Done Comments [...] or Tdap) 11/11/2023 11/10/2013 B-12 12/14/2023 12/13/2022, 10/0 11/2020, 08/21/2020, Additional history exists CKD HGB USE SMARTSET 77607 12/14/202312/13, 05/17/2021, 05/17/2021, Additional history exists CKD PHOS USE SMARTSET 01500 12/14/2023 12/13/2022 Lipid Panel 12/14/2027 12/13/2022, 11/30, 03/08/2021, Additional history exists Hepatitis C Screening Completed 09/09/2014 AAA Screening Completed 06/24/2017 LUNG CANCER SCREENING - USE SMARTSET 86280 Completed 03/17/2019, 06/24/2017 Pneumococcal Vaccine: 65+ Years Completed 03/08/2021, 01/14/2019, 12/27/2008 GARDASIL-HPV IMMUNIZATION SERIES Aged Out No longer eligible based on patient's age to complete this topic MENINGOCOCCAL (MENACTRA/MENVEO) Aged Out No longer eligible based on patient's age to complete this topic documented as of this encounter Medical Devices Implanted Type Area Soil Checker Device Identifier Shelf Expiration Date Model / Serial / Lot Lens 21.0 Mx60e - [id number] - [id number] Implanted:Qty: 1 on 10/28/2019 by Lito Rodriguez MD at [facility] Right: Eye BAUSCH & LOMB 06/01/2022 [id number]-81.0 / [id number] / [id number] Lens 20.5 Mx60e - [id number] - [id number] Implanted:Qty: 1 on 11/09/2019 by Lito Rodriguez MD at OR [facility] Left: Eye BAUSCH & LOMB 09/29/2021 [id number]-49.5 / [id number] / [id number] documented as of this encounter Advance Directives [...] the patient have Health Care Power of Pharmaceutical Salesperson? No Care Teams Box Blank Machine Operator Relationship Specialty Start Date End Date Toi Lynch MD [address] [place] [address] PCP - General Family Medicine 06/23/14 documented as of this encounter
--- OUTSIDE RECORDS SUMMARY | 2023-07-03 13:56 | External Medical Summary | Summary of Care ---
Author Name Unknown Organization [facility] Address [address] [place] [address] Phone [phone] Care Team Providers Care Educational Resource Coordinator Name Role Phone Toi Lynch MD Primary Care Provider + Reason for Visit * Reason Comments eRx-Medication Refill Encounter Details Date Type Department Care Team (Late st Contact Info) Description 03/18/2023 Refill Neurology [facility] [address] [place] [address] Mark Palencia, DO [address] [place] [address] Allergies Active Allergy Reactions Criticality Noted Date Comments Iodinated Contrast Media 08/20/2013 Hives documented as of this encounter (statuses as of 04/22/2023) Medications Medication Sig Dispensed Refills Start Date [...] as of this encounter (statuses as of 04/22/2023) Active Problems Problem Noted Date Diagnosed Date [...] as of this encounter (statuses as of 04/22/2023) Resolved Problems Problem Noted Date Diagnosed Date Resolved Date Hypertensive kidney disease with chronic kidney disease stage III 01/07/2019 04/13/2020 Overview: Per CKD protocol Kidney disease, chronic, sta ge III (GFR 30-59 ml/min) 10/07/2016 01/14/2019 Overview: Per CKD protocol #1 HTN, goal below 140/80 08/20/201311/15 Overview: Per HTN Protocol documented as of this encounter (statuses as of 04/22/2023) Immunizations Name Administration Dates Next Due Pneumococcal [...] encounter Miscellaneous Notes * Telephone Encounter - Britany Kuo LPN - 04/22/2023 2:35 PM EST Spoke with patient and he reviewed his prescriptions with this STEAM BOILER FIREMAN. Sinemet ER 50/200mg at 7am, 10am, 4pm Sinemet ER 25/100mg at 1pm and 7pm Sinemet ER 25/100mg at HS (9pm-10pm) Patient has been taking this medication since "at least the last time I saw him." Please clarify how pt should be taking his prescriptions and submit refills to [facility] in [place] as appropriate. Thank you. * Telephone Encounter - Mark Palencia DO - 2023 1:03 PM EST I tried calling pt at 13:02. No answer and voicemail is full. Unclear if patient has his meds confused as per last office note below: "Car Salmon is a pleasant 72 year old male with tremor predominant parkinson's disease current on immediate release Sinemet 25/100 5x times daily and extended release Sinemet 50/200 one tablet nightly. On examine he has a prominent tremor which may improve with the use of Artane 2 mg BID. Otherwise continue current dose of Sinemet. Will defer on any additional test. Will arrange follow up in 6months." Will need to try and clarify. * Telephone Encounter - Britany Kuo LPN - 2023 10:12 AM EST Please clarify instructions for medication. He does have 2 separate dosages. Thank you. * Telephone Encounter - Mallory Resendiz PHARM Tech - 2023 9:49 AM EST Pt called stating carbidopa levodopa 50-200 mg states to take 1 tab at bedtime but pt said he takesit 3 times a day. Pt said he needs a new script sent. Thanks, Mallory Resendiz Solutions Developer [facility] ([facility]) 2023,9:50 AM [...] bedtime. * Telephone Encounter - Clemencia Kurtz [facility] - 03/18/2023 3:24 PM EDTPending Prescriptions: Disp Refills Carbidopa-Levodopa ER 50-200 MG Oral Table*90 Tab*1 Sig: Take 1 Tablet by mouth at bedtime. * Telephone Encounter - Clemencia Kurtz [facility] - 03/18/2023 3:18 PM EDT Forwarding to [...] PharmD Clinical Pharmacist [facility] ([facility]) (formerly [facility]) [phone] 03/18/2023 3:22 PM documented in this encounter Plan of Treatment Upcoming Encounters Date Type Department Care Team (Late st Contact Info) Description 07/11/2023 8:40 AM EST Office Visit Family Practice [facility] [address] [place] [address] Toi Lynch MD [address] [place] [address] 09/23/2023 1:40 PM EDT Office Visit Neurology [facility] [address] [facility] [place] [address] Mark Palencia, [address] [facility] [place] [address] Health Maintenance Due Date Last Done Comments [...] 05/17/2021, Additional history exists HbA1c 06/15/2023 12/13/2022, 0410/2021, 05/17/2021, Additional history exists DTaP,Tdap,and Td Vaccines (2 - Td or Tdap) 11/11/2023 11/10/2013 B-12 12/14/2023 12/13/2022, 1011/2020, 08/21/2020, Additional history exists CKD HGB USE SMARTSET 23113 12/14/202312/13, 05/17/2021, 05/17/2021, Additional history exists CKD PHOS USE SMARTSET 86043 12/14/2023 12/13/2022 Lipid Panel 12/14/2027 12/13/2022, 11/30, 03/08/2021, Additional history exists Hepatitis C Screening Completed 09/09/2014 AAA Screening Completed 06/24/2017 LUNG CANCER SCREENING - USE SMARTSET 78601 Completed 03/17/2019, 06/24/2017 Pneumococcal Vaccine: 65+ Years Completed 03/08/2021, 01/14/2019, 12/27/2008 GARDASIL-HPV IMMUNIZATION SERIES Aged Out No longer eligible based on patient's age to complete this topic MENINGOCOCCAL (MENACTRA/MENVEO) Aged Out No longer eligible based on patient's age to complete this topic documented as of this encounter Medical Devices Implanted Type Area Director Inbound Sales Device Identifier Shelf Expiration Date Model / Serial / Lot Lens 21.0 Mx60e - [id number] - [id number] Implanted:Qty: 1 on 10/28/2019 by Lito Rodriguez MD at OR [facility] Right: Eye BAUSCH & LOMB 06/01/2022 [id number]-70.0 / [id number] / [id number] Lens 20.5 Mx60e - [id number] - [id number] Implanted:Qty: 1 on 11/09/2019 by Lito Rodriguez MD at OR [facility] Left: Eye BAUSCH & LOMB 09/29/2021 [id number]-60.5 / [id number] / [id number] documented as of this encounter Advance Directives [...] the patient have Health Care Power of Quality Assurance Manager? No Care Teams Educational Resource Coordinator Relationship Specialty Start Date End Date Toi Lynch MD [address] [place] [address] PCP - General Family Medicine 06/23/14 documented as of this encounter
--- OUTSIDE RECORDS SUMMARY | 2023-07-03 13:56 | External Medical Summary | Summary of Care ---
Author Name Unknown Organization [facility] Address [address] [place] [address] Phone [phone] Care Team Providers Care Insurance Claim Auditor Name Role Phone Toi Lynch MD Primary Care Provider + Reason for Visit * Reason Comments eRx-Medication Refill Encounter Details Date Type Department Care Team (Late st Contact Info) Description 03/18/2023 Refill Neurology [facility] [address] [place] [address] Mark Palencia, DO [address] [place] [address] Allergies Active Allergy Reactions Criticality Noted Date [...] Miscellaneous Notes * Telephone Encounter - Britany uKo LPN - 04/22/2023 2:35 PM EST Spoke with patient and he reviewed his prescriptions with this LICENSED AIRCRAFT MAINTENANCE ENGINEER. Sinemet ER 50/200mg at 7am, 10am, 4pm Sinemet ER 25/100mg at 1pm and 7pm Sinemet ER 25/100mg at HS (9pm-10pm) Patient has been taking this medication since "at least the last time I saw him." Please clarify how pt should be taking his prescriptions and submit refills to [facility] in [place] as appropriate. Thank you. * Telephone Encounter [...] a new script sent. Thanks, Mallory Resendiz Dry Mixer [facility] ([facility]) 2023,9:50 AM [...] bedtime. * Telephone Encounter - Clemencia Kurtz [facility] - 03/18/2023 3:24 PM EDTPending Prescriptions: Disp Refills Carbidopa-Levodopa ER 50-200 MG Oral Table*90 Tab*1 Sig: Take 1 Tablet by mouth at bedtime. * Telephone Encounter - Clemencia Kurtz [facility] - 03/18/2023 3:18 PM EDT Forwarding to [...] PharmD Clinical Pharmacist [facility] ([facility]) (formerly [facility]) [phone] 03/18/2023 3:22 PM documented in this encounter Plan of Treatment Upcoming Encounters Date Type Department Care Team (Late st Contact Info) Description 07/11/2023 8:40 AM EST Office Visit Family Practice [facility] [address] [place] [address] Toi Lynch MD [address] [place] [address] 09/23/2023 1:40 PM EDT Office Visit Neurology [facility] [address] [facility] [place] [address] Mark Palencia, [address] [facility] [place] [address] Health Maintenance Due Date Last Done Comments [...] Additional history exists CKD HGB USE SMARTSET 29560 12/14/202312/13, 05/17/2021, 05/17/2021, Additional history exists CKD PHOS USE SMARTSET 86510 12/14/2023 12/13/2022 Lipid Panel 12/14/2027 12/13/2022, 11/30, 03/08/2021, Additional history exists Hepatitis C Screening Completed 09/09/2014 AAA Screening Completed 06/24/2017 LUNG CANCER SCREENING - USE SMARTSET 83340 Completed 03/17/2019, 06/24/2017 Pneumococcal Vaccine: 65+ Years Completed 03/08/2021, 01/14/2019, 12/27/2008 GARDASIL-HPV IMMUNIZATION SERIES Aged Out No longer eligible based on patient's age to complete this topic MENINGOCOCCAL (MENACTRA/MENVEO) Aged Out No longer eligible based on patient's age to complete this topic documented as of this encounter Medical Devices Implanted Type Area Munitions Handler Device Identifier Shelf Expiration Date Model / Serial / Lot Lens 21.0 Mx60e - [id number] - [id number] Implanted:Qty: 1 on 10/28/2019 by Lito Rodriguez MD at OR [facility] Right: Eye [employer]USCH [employer] LOMB 06/01/2022 [id number]-66.0 / [id number] / [id number] Lens 20.5 Mx60e - [id number] - [id number] Implanted:Qty: 1 on 11/09/2019 by Lito Rodriguez MD at OR [facility] Left: Eye BAUSCH & LOMB 09/29/2021 AZ84P-40.5 / [id number] / [id number] documented as of this encounter Advance Directives [...] the patient have Health Care Power of Counter Weigher? No Care Teams Insurance Claim Auditor Relationship Specialty Start Date End Date Toi Lynch MD [address] [place] [address] PCP - General Family Medicine 06/23/14 documented as of this encounter
--- OUTSIDE RECORDS SUMMARY | 2023-07-03 13:56 | External Medical Summary | Summary of Care ---
Author Name Unknown Organization [facility] Address [address] [place] [address] Phone [phone] Care Team Providers Care Urban Sociologist Name Role Phone Toi Lynch MD Primary Care Provider + Reason for Visit * Reason Comments eRx-Medication Refill Encounter Details Date Type Department Care Team (Late st Contact Info) Description 03/18/2023 Refill Neurology [facility] [place] [address] [place] [address] Mark Palencia, DO [address] [place] [address] Parkinson's disease without dyskinesia or fluctuating manifestations* Allergies Active Allergy Reactions Criticality Noted Date Comments Iodinated Contrast Media 08/20/2013 Hives documented as of this encounter (statuses as of 04/23/2023) Medications Medication Sig Dispensed Refills Start Date [...] Active Atorvastatin Calcium 20 MG Oral Tablet (LIPITOR)Indicatio ns:Type 2 diabetes mellitus with hemoglobin A1c goal of less than 8.0% (HCC) Take 1 Tablet by mouth in the morning. 1 Tab 0 0 Active CPAP every night at bedtime. 0 Active traMADol HCl 50 MG Oral Tablet (Ultram)Indication s:Headache, unspecified headache type Take 1 Tablet by mouth every 6 hours as needed for Pain, Severe. 20 Tablet 0 1 Active Vitamin D3 50 MCG (2000 UT) Oral CapsuleIndications :Vitamin D deficiency TAKE ONE CAPSULE BY MOUTH EVERY DAY 90 Capsule 3 3 Active diphenhydrAMINE HCl 50 MG Oral Capsule (Benadryl)Indicati ons:Rash,Itch of skin Take 1 Capsule by mouth at bedtime as needed for Itching. 30 Capsule 0 3 Active NovoLIN 70/30 ReliOn (70-30) 100 UNIT/ML Subcutaneous Suspension (Insulin NPH Isophane & Regular)Indication s:Type 2 diabetes mellitus with hemoglobin A1c goal of less than 8.0% ([facility]) 39 Unit in AM 35n PM before meal 20 mL 5 3 Active Carbidopa-Levodopa 25-100 MG Oral Tablet (Sinemet) take 1 tablet at 1pm and 1 tablet at 7pm. 60 Tablet 5 3 Active amLODIPine Besylate 2.5 MG Oral Tablet (Norvasc) TAKE ONE TABLET BY MOUTH EVERY DAY 90 Tablet 3 3 Active Finasteride 5 MG Oral Tablet (Proscar)Indicatio ns:BPH with obstruction/lower urinary tract symptoms TAKE ONE TABLET BY MOUTH EVERY DAY 90 Tablet 3 3 Active metFORMIN HCl 1000 MG Oral Tablet (Glucophage) TAKE ONE TABLET BY MOUTH IN THE MORNING AND IN THE EVENING WITH MEALS 180 Tablet 3 3 Active Tamsulosin HCl 0.4 MG Oral Capsule (Flomax)Indication s:BPH with obstruction/lower urinary tract symptoms TAKE ONE CAPSULE BY MOUTH EVERY DAY 90 Capsule 3 3 Active Omeprazole 20 MG Oral Capsule Delayed Release (PriLOSEC)Indicati ons:Gastroesophage al reflux disease with esophagitis without hemorrhage take 1 capsule by mouth twice daily 30 minutes before a meal 180 Capsule 1 3 Active Lisinopril-hydroCH LOROthiazide 20-25 MG Oral TabletIndications: HTN, goal below 140/80 TAKE ONE TABLET BY MOUTH IN THE MORNING 90 Tablet 3 3 Active Carbidopa-Levodopa ER 25-100 MG Oral Tablet Extended Release (Sinemet CR) TAKE ONE TABLET BY MOUTH AT BEDTIME 90 Tablet 1 3 Active Carbidopa-Levodopa ER 50-200 MG Oral Tablet Extended Release (Sinemet CR)Indications:Par kinson's disease without dyskinesia or fluctuating manifestations 1 tablet 3x daily (7am, 10am, 4pm) 270 Tablet 1 3 Active Carbidopa-Levodopa ER 50-200 MG Oral Tablet Extended Release (Sinemet CR) TAKE 1 TABLET AT 7AM, 1 TABLET AT 10AM AND 1 TABLET AT 4PM. 90 Tablet 0 3 03/18/20 23 Discontinued Carbidopa-Levodopa ER 50-200 MG Oral Tablet Extended Release (Sinemet CR) Take 1 Tablet by mouth at bedtime. 90 Tablet 1 3 04/23/20 23 Discontinued(Re fill) Hospital, Clinic, or Other Facility Administered Medication Ordered Dose Route Frequency Start Date End Date Status albuterol sulfate (PROVENTIL) (2.5 MG/3ML) 0.083% inhalation solution 2.5 mgIndications:Chronic coughing 2.5 mg NEBULIZER Q4H PRN 01/20/2019 Active documented as of this encounter (statuses as of 04/23/2023) Active Problems Problem Noted Date Diagnosed Date [...] as of this encounter (statuses as of 04/23/2023) Resolved Problems Problem Noted Date Diagnosed Date Resolved Date Hypertensive kidney disease with chronic kidney disease stage III 01/07/2019 04/13/2020 Overview: Per CKD protocol Kidney disease, chronic, sta ge III (GFR 30-59 ml/min) 10/07/2016 01/14/2019 Overview: Per CKD protocol #1 HTN, goal below 140/80 08/20/201311/15 Overview: Per HTN Protocol documented as of this encounter (statuses as of 04/23/2023) Immunizations Name Administration Dates Next Due Pneumococcal [...] Telephone Encounter - Britany Kuo LPN - 04/23/2023 3:44 PM EST Pt aware meds have been sent to the pharmacy. * Addendum Note - Mark Palencia DO - 04/23/2023 3:25 PM ESTAddended by: MARK PALENCIA on: 04/23/2023 03:25 PM Modules accepted: Orders * Telephone Encounter - Mark Palencia DO - 04/23/2023 3:24 PM EST Erx sent. Thanks * Telephone Encounter - Britany Kuo LPN - 04/22/2023 2:35 PM EST Spoke with patient and he reviewed his prescriptions with this SHOTBLASTER. Sinemet ER 50/200mg at 7am, 10am, 4pm Sinemet ER 25/100mg at 1pm and 7pm Sinemet ER 25/100mg at HS (9pm-10pm) Patient has been taking this medication since "at least the last time I saw him." Please clarify how pt should be taking his prescriptions and submit refills to [facility] in [place] as appropriate. Thank you. * Telephone Encounter [...] you. * Telephone Encounter - Mallory Resendiz management accountant - 2023 9:49 AM EST Pt called stating carbidopa levodopa 50-200 mg states to take 1 tab at bedtime but pt said he takesit 3 times a day. Pt said he needs a new script sent. Thanks, Mallory Resendiz Group President [facility] ([facility]) 2023,9:50 AM [...] bedtime. * Telephone Encounter - Clemencia Kurtz [facility] - 03/18/2023 3:24 PM EDTPending Prescriptions: Disp Refills Carbidopa-Levodopa ER 50-200 MG Oral Table*90 Tab*1 Sig: Take 1 Tablet by mouth at bedtime. * Telephone Encounter - Clemencia Kurtz RPh - 03/18/2023 3:18 PM EDT Forwarding to [...] [facility] ([facility]) (formerly Telepharmacy) [phone] 03/18/2023 3:22 PM documented in this encounter Plan of Treatment Upcoming Encounters Date Type Department Care Team (Late st Contact Info) Description 07/11/2023 8:40 AM EST Office Visit Family [facility] [address] [place] [address] Toi Lynch MD [address] [place] [address] 09/23/2023 1:40 PM EDT Office Visit Neurology [facility] [place] [address] [place] [address] Mark Plaencia DO [address] [place] [address] Health Maintenance Due Date Last Done Comments [...] (FLU shot) (#1) 2023 Cologuard 03/09/2023 03/09/2020, 100 06/2019, 03/02/2020 Colorectal Cancer Screening 03/09/2023 GFR 06/15/2023 12/13/2022, 05/02, 05/17/2021, Additional history exists HbA1c 06/15/2023 12/13/2022, 04/0 10/2021, 05/17/2021, Additional history exists DTaP,Tdap,and Td Vaccines (2 - Td or Tdap) 11/11/2023 11/10/2013 B-12 12/14/2023 12/13/2022, 100 11/2020, 08/21/2020, Additional history exists CKD HGB USE SMARTSET 01312 12/14/202312/13, 05/17/2021, 05/17/2021, Additional history exists CKD PHOS USE SMARTSET 08680 12/14/2023 12/13/2022 Lipid Panel 12/14/2027 12/13/2022, 11/30, 03/08/2021, Additional history exists Hepatitis C Screening Completed 09/09/2014 AAA Screening Completed 06/24/2017 LUNG CANCER SCREENING - USE SMARTSET 64257 Completed 03/17/2019, 06/24/2017 Pneumococcal Vaccine: 65+ Years Completed 03/08/2021, 01/14/2019, 12/27/2008 GARDASIL-HPV IMMUNIZATION SERIES Aged Out No longer eligible based on patient's age to complete this topic MENINGOCOCCAL (MENACTRA/MENVEO) Aged Out No longer eligible based on patient's age to complete this topic documented as of this encounter Medical Devices Implanted Type Area Culture Media Laboratory Assistant Device Identifier Shelf Expiration Date Model / Serial / Lot Lens 21.0 Mx60e - [id number] - [id number] Implanted:Qty: 1 on 10/28/2019 by Lito Rodriguez MD at OR [facility] Right: Eye BAUSCH [employer] LOMB 06/01/2022 [id number]-06.0 / [id number] / [id number] Lens 20.5 Mx60e - [id number] - [id number] Implanted:Qty: 1 on 11/09/2019 by Lito Rodriguez MD at OR [facility] Left: Eye BAUSCH & LOMB 09/29/2021 [id number]-59.5 / [id number] / [id number] documented as of this encounter Visit Diagnoses Diagnosis Parkinson's disease without dyskinesia or fluctuating manifestations- Primary documented in this encounter Advance Directives Latest [...] the patient have Health Care Power of Loader Unloader? No Care Teams Urban Sociologist Relationship Specialty Start Date End Date Toi Lynch MD [address] [place] [address] PCP - General Family Medicine 06/23/14 documented as of this encounter
--- OUTSIDE RECORDS SUMMARY | 2023-07-03 13:56 | External Medical Summary | Summary of Care ---
Author Name Unknown Organization [facility] Address [address] [place] [address] Phone [phone] Care Team Providers Care Holiday Detector Operator Name Role Phone Toi Lynch MD Primary Care Provider + Reason for Visit * Reason Comments eRx-Medication Refill Encounter Details Date Type Department Care Team (Late st Contact Info) Description 03/18/2023 Refill Neurology [facility] [place] [address] [place] [address] Mark Palencia, DO [address] [place] [address] Parkinson's disease without dyskinesia or fluctuating manifestations* [...] hemoglobin A1c goal of less than 8.0% ([facility]) 39 Unit in AM 35n PM before [...] as of this encounter Miscellaneous Notes * Addendum Note - Mark Palencia DO - 04/23/2023 3:25 PM ESTAddended by: MARK PALENCIA on: 04/23/2023 03:25 PM Modules accepted: Orders * Telephone Encounter - Mark Palencia DO - 04/23/2023 3:24 PM EST Erx sent. Thanks * Telephone Encounter - Britany Kuo LPN - 04/22/2023 2:35 PM EST Spoke with patient and he reviewed his prescriptions with this REGIS. Sinemet ER 50/200mg at 7am, 10am, 4pm Sinemet ER 25/100mg at 1pm and 7pm Sinemet ER 25/100mg at HS (9pm-10pm) Patient has been taking this medication since "at least the last time I saw him." Please clarify how pt should be taking his prescriptions and submit refills to [facility] in [place] as appropriate. Thank you. * Telephone Encounter [...] a new script sent. Thanks, Mallory Resendiz Assistant Women'S Soccer Coach [facility] ([facility]) 2023,9:50 AM [...] bedtime. * Telephone Encounter - Clemencia Kurtz [facility] - 03/18/2023 3:24 PM EDTPending Prescriptions: Disp Refills Carbidopa-Levodopa ER 50-200 MG Oral Table*90 Tab*1 Sig: Take 1 Tablet by mouth at bedtime. * Telephone Encounter - Clemencia Kurtz [facility] - 03/18/2023 3:18 PM EDT [...] [facility]acy Services ([facility]) (formerly Telepharmacy) [phone] 03/18/2023 3:22 PM documented in this encounter Plan of Treatment Upcoming Encounters Date Type Department Care Team (Late st Contact Info) Description 07/11/2023 8:40 AM EST Office Visit Family Practice [facility] [address] [place] [address] Toi Lynch MD [address] [place] [address] 09/23/2023 1:40 PM EDT Office Visit Neurology [facility] [place] [address] [facility] [place] [address] Mark Palencia, [address] [facility] [place] [address] Health Maintenance Due Date Last Done Comments [...] Additional history exists CKD HGB USE SMARTSET 99658 12/14/202312/13, 05/17/2021, 05/17/2021, Additional history exists CKD PHOS USE SMARTSET 44734 12/14/2023 12/13/2022 Lipid Panel 12/14/2027 12/13/2022, 11/30, 03/08/2021, Additional history exists Hepatitis C Screening Completed 09/09/2014 AAA Screening Completed 06/24/2017 LUNG CANCER SCREENING - USE SMARTSET 44935 Completed 03/17/2019, 06/24/2017 Pneumococcal Vaccine: 65+ Years Completed 03/08/2021, 01/14/2019, 12/27/2008 GARDASIL-HPV IMMUNIZATION SERIES Aged Out No longer eligible based on patient's age to complete this topic MENINGOCOCCAL (MENACTRA/MENVEO) Aged Out No longer eligible based on patient's age to complete this topic documented as of this encounter Medical Devices Implanted Type Area Offal Roller Device Identifier Shelf Expiration Date Model / Serial / Lot Lens 21.0 Mx60e - [id number] - [id number] Implanted:Qty: 1 on 10/28/2019 by Lito Rodriguez MD at OR [facility] Right: Eye BAUSCH & LOMB 06/01/2022 [id number]-20.0 / [id number] / [id number] Lens 20.5 Mx60e - [id number] - [id number] Implanted:Qty: 1 on 11/09/2019 by Lito Rodriguez MD at OR [facility] Left: Eye BAUSCH & LOMB 09/29/2021 TX03A-81.5 / [id number] / [id number] documented as of this encounter Visit Diagnoses [...] the patient have Health Care Power of Sole Polisher? No Care Teams Holiday Detector Operator Relationship Specialty Start Date End Date Toi Lynch MD [address] [place] [address] PCP - General Family Medicine 06/23/14 documented as of this encounter
--- OUTSIDE RECORDS SUMMARY | 2023-07-03 13:56 | External Medical Summary | Summary of Care ---
Author Name Unknown Organization [facility] Address [address] [place] [address] Phone [phone] Care Team Providers Care Train Reservation Clerk Name Role Phone Toi Lynch MD Primary Care Provider + Reason for Visit * Reason Comments eRx-Medication Refill Encounter Details Date Type Department Care Team (Late st Contact Info) Description 05/06/2023 Refill Neurology [facility] [address] [place] [address] Aga Ochoa PA-C [address] [facility] [place] [address] Allergies Active Allergy Reactions Criticality Noted Date Comments Iodinated Contrast Media 08/20/2013 Hives documented as of this encounter (statuses as of 05/07/2023) Medications Medication Sig Dispensed Refills Start Date [...] 7 pm. 60 Tablet 5 3 Active Carbidopa-Levodopa 25-100 MG Oral Tablet (Sinemet) take 1 tablet at 1pm and 1 tablet at 7pm. 60 Tablet 5 3 05/07/20 23 Discontinued Hospital, Clinic, or Other Facility Administered Medication Ordered Dose Route Frequency Start Date End Date Status albuterol sulfate (PROVENTIL) (2.5 MG/3ML) 0.083% inhalation solution 2.5 mgIndications:Chronic coughing 2.5 mg NEBULIZER Q4H PRN 01/20/2019 Active documented as of this encounter (statuses as of 05/07/2023) Active Problems Problem Noted Date Diagnosed Date [...] as of this encounter (statuses as of 05/07/2023) Resolved Problems Problem Noted Date Diagnosed Date Resolved Date Hypertensive kidney disease with chronic kidney disease stage III 01/07/2019 04/13/2020 Overview: Per CKD protocol Kidney disease, chronic, sta ge III (GFR 30-59 ml/min) 10/07/2016 01/14/2019 Overview: Per CKD protocol #1 HTN, goal below 140/80 08/20/201311/15 Overview: Per HTN Protocol documented as of this encounter (statuses as of 05/07/2023) Immunizations Name Administration Dates Next Due Pneumococcal [...] encounter Miscellaneous Notes * Telephone Encounter - Bonnie Philip RPh - 05/07/2023 4:23 PM ESTSigned Prescriptions: Disp Refills Carbidopa-Levodopa 25-100 MG Oral Tablet (*60 Tab*5 Sig: take 1 tablet at 1 pm and 1 tablet at 7 pm.Authorizing Provider: MARK PALENCIA User: BONNIE PHILIP * Telephone Encounter - Fatoumata Cortes, pocketbook maker - 05/07/2023 11:05 AM EST Pending Prescriptions: Disp Refills Carbidopa-Levodopa 25-100 MG Oral Tablet [*60 Tab*0 Sig: take 1 tablet at 1 pm and 1 tablet at 7 pm. * Telephone Encounter - Fatoumata Cortes PHARM Tech - 05/07/2023 11:02 AM EST Patient is up to date for office visits. Pending Prescriptions: Disp Refills Carbidopa-Levodopa 25-100 MG Oral Tablet *60 Tab*0 Sig: take 1 tablet at 1 pm and 1 tablet at 7 pm. Last Visit: 03/11/2023 (in office), Visit date not found (telemedicine) Next Visit: 09/23/2023 If no future appointments scheduled, and last appointment is greater than a year ago, please schedule patient for a follow-up appointment Last date the medication was ordered: 10/17/2022 Pharmacy: [id number] [address] [facility] Is this request for a controlled substance?No it is not controlled. Urine Drug Screen:No results found for this or any previous visit. Patient Phone Numbers Labs: Lab Results Component Value Date/Time CREAT 1.2 12/13/2022 09:57 AM CREAT 1.4 (H) 02/22/2020 09:28 AM POTASSIUM 4.0 12/13/2022 09:57 AM POTASSIUM 4.3 02/22/2020 09:28 AM TSH 2.38 08/08/2016 08:09 AM LDLCALC 70 12/13/2022 09:57 AM LDLCALC 81 02/22/2020 09:28 AM LDLDIRECT 87 12/13/2022 09:57 AM LDLDIRECT NOT APPLICABLE 02/22/2020 09:28 AM ALT 6 (L) 05/17/2021 12:49 PM ALT 29 08/28/2016 10:54 AM HGBA1C 8.7 (H) 12/13/2022 09:57 AM HGBA1C 8.6 (H) 02/22/2020 09:28 AM documented in this encounter Plan of Treatment Upcoming Encounters Date Type Department Care Team (Late st Contact Info) Description 07/11/2023 8:40 AM EST Office Visit Family Practice [facility] [address] [place] [address] Toi Lynch MD [address] [place] [address] 09/23/2023 1:40 PM EDT Office Visit Neurology [facility] [address] [facility] [place] [address] Mark Palencia, [address] [facility] [place] [address] Health Maintenance Due Date Last Done Comments [...] Additional history exists CKD HGB USE SMARTSET 72718 12/14/202312/13, 05/17/2021, 05/17/2021, Additional history exists CKD PHOS USE SMARTSET 93386 12/14/2023 12/13/2022 Lipid Panel 12/14/2027 12/13/2022, 11/30, 03/08/2021, Additional history exists Hepatitis C Screening Completed 09/09/2014 AAA Screening Completed 06/24/2017 LUNG CANCER SCREENING - USE SMARTSET 28749 Completed 03/17/2019, 06/24/2017 Pneumococcal Vaccine: 65+ Years Completed 03/08/2021, 01/14/2019, 12/27/2008 GARDASIL-HPV IMMUNIZATION SERIES Aged Out No longer eligible based on patient's age to complete this topic MENINGOCOCCAL (MENACTRA/MENVEO) Aged Out No longer eligible based on patient's age to complete this topic documented as of this encounter Medical Devices Implanted Type Area Heavy Machinery Operator Device Identifier Shelf Expiration Date Model / Serial / Lot Lens 21.0 Mx60e - [id number] - [id number] Implanted:Qty: 1 on 10/28/2019 by Lito Rodriguez MD at OR [facility] Right: Eye BAUSCH & LOMB 06/01/2022 [id number]-23.0 / [id number] / [id number] Lens 20.5 Mx60e - [id number] - [id number] Implanted:Qty: 1 on 11/09/2019 by Lito Rodriguez MD at OR [facility] Left: Eye BAUSCH & LOMB 09/29/2021 DB59R-13.5 / [id number] / [id number] documented as of this encounter Advance Directives [...] the patient have Health Care Power of Fabric Designer? No Care Teams Train Reservation Clerk Relationship Specialty Start Date End Date Toi Lynch MD [address] [address] PCP - General Family Medicine 06/23/14 documented as of this encounter
--- OUTSIDE RECORDS SUMMARY | 2023-07-03 13:56 | External Medical Summary | Summary of Care ---
Author Name Unknown Organization [facility] Address [address] [place] [address] Phone [phone] Care Team Providers Care Equipment Superintendent Name Role Phone Toi Lynch MD Primary Care Provider + Reason for Visit * Reason Comments eRx-Medication Refill Encounter Details Date Type Department Care Team (Late st Contact Info) Description 03/18/2023 Refill Neurology [facility] [address] [place] [address] Mark Palencia, DO [address] [place] [address] Allergies Active Allergy Reactions Criticality Noted Date [...] money to buy more. Never true 11/21/19 Within the past 12 months, t he [...] a new script sent. Thanks, Mallory Resendiz Legal Recovery Specialist [facility] 2023,9:50 AM [...] bedtime. * Telephone Encounter - Clemencia Kurtz RP - 03/18/2023 3:24 PM EDTPending Prescriptions: Disp Refills Carbidopa-Levodopa ER 50-200 MG Oral Table*90 Tab*1 Sig: Take 1 Tablet by mouth at bedtime. * Telephone Encounter - Clemencia Kurtz RP - 03/18/2023 3:18 PM EDT Forwarding to [...] [facility] ([facility]) (formerly Telepharmacy) [phone] 03/18/2023 3:22 PM documented in this encounter Plan of Treatment Upcoming Encounters Date Type Department Care Team (Late st Contact Info) Description 07/11/2023 8:40 AM EST Office Visit Family [facility] [address] [place] [address] Toi Lynch MD [address] [place] [address] 09/23/2023 1:40 PM EDT Office Visit Neurology [facility] [address] [facility] [place] [address] Mark Palencia DO [address] [facility] [place] [address] Health Maintenance Due Date Last Done Comments [...] Additional history exists CKD HGB USE SMARTSET 67513 12/14/202312/13, 05/17/2021, 05/17/2021, Additional history exists CKD PHOS USE SMARTSET 29193 12/14/2023 12/13/2022 Lipid Panel 12/14/2027 12/13/2022, 11/30, 03/08/2021, Additional history exists Hepatitis C Screening Completed 09/09/2014 AAA Screening Completed 06/24/2017 LUNG CANCER SCREENING - USE SMARTSET 46217 Completed 03/17/2019, 06/24/2017 Pneumococcal Vaccine: 65+ Years Completed 03/08/2021, 01/14/2019, 12/27/2008 GARDASIL-HPV IMMUNIZATION SERIES Aged Out No longer eligible based on patient's age to complete this topic MENINGOCOCCAL (MENACTRA/MENVEO) Aged Out No longer eligible based on patient's age to complete this topic documented as of this encounter Medical Devices Implanted Type Area Transportation Job Titles Device Identifier Shelf Expiration Date Model / Serial / Lot Lens 21.0 Mx60e - [id number] - [id number] Implanted:Qty: 1 on 10/28/2019 by Lito Rodriguez MD at OR [facility] Right: Eye [employer]CH [employer] LOMB 06/01/2022 [id number]-42.0 / [id number] / [id number] Lens 20.5 Mx60e - [id number] - [id number] Implanted:Qty: 1 on 11/09/2019 by Lito Rodriguez MD at OR [facility] Left: Eye BAUSCH [employer] LOMB 09/29/2021 [id number]-61.5 / [id number] / [id number] documented as of this encounter Advance Directives [...] the patient have Health Care Power of Stain Sprayer? No Care Teams Equipment Superintendent Relationship Specialty Start Date End Date Toi Lynch MD [address] [place] [address] PCP - General Family Medicine 06/23/14 documented as of this encounter
--- OUTSIDE RECORDS SUMMARY | 2023-07-03 13:56 | External Medical Summary | Summary of Care ---
Author Name Unknown Organization [facility] Address [address] [place] [address] Phone [phone] Care Team Providers Care Steward/Stewardess Dining Room Name Role Phone Toi Lynch MD Primary Care Provider + Reason for Visit * Reason Comments eRx-Medication Refill Encounter Details Date Type Department Care Team (Late st Contact Info) Description 03/18/2023 Refill Neurology [facility] [address] [place] [address] Mark Palencia, DO [address] [place] [address] Allergies Active Allergy Reactions Criticality Noted Date [...] encounter Miscellaneous Notes * Telephone Encounter - Mark Palencia DO [...] said he needs a new script sent. Mallory Vargas Manufacturing Engineer [facility]) 2023,9:50 AM [...] bedtime. * Telephone Encounter - Clemencia Kurtz [facility] - 03/18/2023 3:24 PM EDTPending Prescriptions: Disp [...] [facility] ([facility]) (formerly Telepharmacy) [phone] 03/18/2023 3:22 PM documented in this encounter Plan of Treatment Upcoming Encounters Date Type Department Care Team (Late st Contact Info) Description 07/11/2023 8:40 AM EST Office Visit Family [facility] [address] [place] [address] Toi Lynch MD [address] [place] [address] 09/23/2023 1:40 PM EDT Office [facility] [place] [address] [facility] [place] [address] Mark Palencia, DO [address] [place] [address] Health Maintenance Due Date Last Done Comments [...] Additional history exists CKD HGB USE SMARTSET 06241 12/14/202312/13, 05/17/2021, 05/17/2021, Additional history exists CKD PHOS USE SMARTSET 99643 12/14/2023 12/13/2022 Lipid Panel 12/14/2027 12/13/2022, 11/30, 03/08/2021, Additional history exists Hepatitis C Screening Completed 09/09/2014 AAA Screening Completed 06/24/2017 LUNG CANCER SCREENING - USE SMARTSET 48394 Completed 03/17/2019, 06/24/2017 Pneumococcal Vaccine: 65+ Years Completed 03/08/2021, 01/14/2019, 12/27/2008 GARDASIL-HPV IMMUNIZATION SERIES Aged Out No longer eligible based on patient's age to complete this topic MENINGOCOCCAL (MENACTRA/MENVEO) Aged Out No longer eligible based on patient's age to complete this topic documented as of this encounter Medical Devices Implanted Type Area News Cameraman Device Identifier Shelf Expiration Date Model / Serial / Lot Lens 21.0 Mx60e - [id number] - [id number] Implanted:Qty: 1 on 10/28/2019 by Lito Rodriguez MD at OR [facility] Right: Eye BAUSCH & LOMB 06/01/2022 [id number]-95.0 / [id number] / [id number] Lens 20.5 Mx60e - [id number] - [id number] Implanted:Qty: 1 on 11/09/2019 by Lito Rodriguez MD at OR [facility] Left: Eye BAUSCH & LOMB 09/29/2021 [id number]-15.5 / [id number] / [id number] documented as of this encounter Advance Directives [...] the patient have Health Care Power of Stamp Analyst? No Care Teams Steward/Stewardess Dining Room Relationship Specialty Start Date End Date Toi Lynch MD [address] [place] [address] PCP - General Family Medicine 06/23/14 documented as of this encounter
--- OUTSIDE RECORDS SUMMARY | 2023-07-03 13:56 | External Medical Summary | Summary of Care ---
Author Name Unknown Organization [facility] Address [address] [place] [address] Phone [phone] Care Team Providers Care Cone Baker Machine Name Role Phone Toi Lynch MD Primary Care Provider + Reason for Visit * Reason Comments NEW PATIENT Encounter Details Date Type Department Care Team (Late st Contact Info) Description 03/26/2023 11:00 AM EDT Office Visit Podiatry [facility] [address] [facility] [place] [address] Norma Ny, DPMike [address] [place] [address] Type 2 diabetes mellitus with stage 3 chronic kidney disease, with long-term current use of insulin, unspecified whether stage 3a or 3b CKD (HCC)*; Porokeratosis Allergies Active Allergy Reactions Criticality Noted Date Comments Iodinated Contrast Media 08/20/2013 Hives documented as of this encounter (statuses as of 03/26/2023) Medications Medication Sig Dispensed Refills Start Date [...] before meal 20 mL 5 09/30/2022 Active Carbidopa-Levodopa 25-100 MG Oral Tablet (Sinemet) take 1 tablet at 1pm and 1 tablet at 7pm. 60 Tablet 5 10/17/2022 Active amLODIPine Besylate 2.5 MG Oral Tablet (Norvasc) TAKE ONE TABLET BY MOUTH EVERY DAY 90 Tablet 12/17/2022 Active Finasteride 5 MG Oral Tablet (Proscar)Indication [...] a meal 180 Capsule 1 01/29/2023 Active Lisinopril-hydroCHL OROthiazide 20-25 MG Oral TabletIndications:H [...] at bedtime. 90 Tablet 1 03/18/2023 Active Hospital, Clinic, or Other Facility Administered Medication Ordered Dose Route Frequency Start Date End Date Status albuterol sulfate (PROVENTIL) (2.5 MG/3ML) 0.083% inhalation solution 2.5 mgIndications:Chronic coughing 2.5 mg NEBULIZER Q4H PRN 01/20/2019 Active documented as of this encounter (statuses as of 03/26/2023) Active Problems Problem Noted Date Diagnosed Date [...] as of this encounter (statuses as of 03/26/2023) Resolved Problems Problem Noted Date Diagnosed Date Resolved Date Hypertensive kidney disease with chronic kidney disease stage III 01/07/2019 04/13/2020 Overview: Per CKD protocol Kidney disease, chronic, sta ge III (GFR 30-59 ml/min) 10/07/2016 01/14/2019 Overview: Per CKD protocol #1 HTN, goal below 140/80 08/20/201311/15 Overview: Per HTN Protocol documented as of this encounter (statuses as of 03/26/2023) Immunizations Name Administration Dates Next Due Pneumococcal [...] on file documented as of this encounter Progress Notes * Norma Ny DPM - 03/26/2023 11:00 AM EDT Podiatry New Patient Note [facility] Name: Car Salmon : 1950 Date: 03/26/2023 CHIEF COMPLAINT: painful skin lesion to the bottom of the right foot HISTORY OF PRESENT ILLNESS: This patient is a 72 year old male who presents today with complaints of a painful area to the bottom of the right foot. He reports noticing this about 2-3 months ago. He denies stepping on anything. The area is tender with pressure. She has not tried any treatment. He does have type 2 DM. Past Medical History: Diagnosis Date Anastomotic ulcer S/P gastric bypass 05/12/2015 Chronic right-sided low back pain with right-sided sciatica 12/27/2017 DM type 2, goal A1c below 7 08/20/2013 Dyslipidemia, goal LDL below 70 02/23/2020 Erectile dysfunction 10/16/2013 Frozen shoulder left Gastroesophageal reflux disease with esophagitis 02/23/2020 Hip pain, right 12/26/2015 HTN, goal below 140/80 08/20/2013 LUMBAR DISC DISPLACEMENT Major depressive disorder, recurrent episode, moderate (HCC) 04/30/2016 Morbid obesity due to excess calories (HCC) 04/30/2016 DIANNE on CPAP 01/14/2019 PUD (peptic ulcer disease) 09/14/2015 S/P gastric bypass 08/20/2013 Sleep apnea, obstructive Past Surgical History: Procedure Laterality Date ABD WALL SUBQ TUMOR REMOVAL, 3 CM OR MORE N/A 09/04/2018 EXCISION ABD WALL SUBQ TUMOR, 3 CM OR MORE performed by Rosie Salter MD at OR [facility] EGD, FLEXIBLE, DIAGNOSTIC 07/01/2014 mild-mod inflammation, 2 ulcers, repeat 2 mo EGD, W/ENDOSCOPIC US 08/25/2014 healed ulcer/ESOPHAGOGASTRODUODENOSCOPY (EGD), FLEXIBLE, TRANSORAL, ENDOSCOPIC ULTRASOUND performedby Alex Fisher MD at ENDOSCOPY [facility] GASTRIC BYPASS FOR OBESITY 10/2012 [place], [place] MISCELLANEOUS ORDER ([facility] ONLY) 2000? needle/disc procedure-didn't help. REMOVAL OF TONSILS, UNDER AGE 14 REMOVE CATARACT, INSERT LENS PROSTH Right 10/28/2019 right EXTRACAPSULAR CATARACT REMOVAL WITH INTRAOCULAR LENS performed by Lito Rodriguez MD at OR [facility] REMOVE CATARACT, INSERT LENS PROSTH Left 11/09/2019 left EXTRACAPSULAR CATARACT REMOVAL WITH INTRAOCULAR LENS performed by Lito Rodriguez MD at OR [facility] SHOULDER SURGERY PROCEDURE NEC Left 04/2012 frozen shoulder syndrome - left Family History Problem Relation Age of Onset Stroke Mother 57 mult. 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 Tobacco Use Smoking status: Former Packs/day: 1.00 Years: 48.00 Additional pack years: 0.00 Total pack years: 48.00 Types: Cigarettes, Cigars Quit date: 06/22/2010 Years since quittin.7 Smokeless tobacco: Never Tobacco comments: smokes pipe 2020 Vaping Use Vaping Use: Never used Substance and Sexual Activity Alcohol use: No Drug use: No Social History Narrative 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 Use up to four times a day as directed 3 Box 3 Aspirin 81 MG Oral Tablet Delayed Release Take 1 Tablet by mouth in the morning. Cetirizine HCl 10 MG Capsule Take 1 Capsule by mouth daily as needed for Rhinitis. Glucose Blood (HerokuUCH ULTRA BLUE) STRP Use up to 4 times a day as directed. E11.9 400 Strip 1 Probiotic Product (PROBIOTIC ACIDOPHILUS BIOBEADS) Capsule Take 1 Cap by mouth three times a day with meals. Atorvastatin Calcium 20 MG Oral Tablet (LIPITOR) Take 1 Tablet by mouth in the morning. 1 Tab 0 CPAP every night at bedtime. traMADol HCl 50 MG Oral Tablet (Ultram) Take 1 Tablet by mouth every 6 hours as needed for Pain, Severe. 20 Tablet 0 Vitamin D3 50 MCG (2000 UT) Oral Capsule TAKE ONE CAPSULE BY MOUTH EVERY DAY 90 Capsule 3 diphenhydrAMINE HCl 50 MG Oral Capsule (Benadryl) Take 1 Capsule by mouth at bedtime as needed for Itching. 30 Capsule 0 NovoLIN 70/30 ReliOn (70-30) 100 UNIT/ML Subcutaneous Suspension (Insulin NPH Isophane & Regular) 39 Unit in AM 35n PM before meal 20 mL 5 Carbidopa-Levodopa 25-100 MG Oral Tablet (Sinemet) take 1 tablet at 1pm and 1 tablet at 7pm. 60 Tablet 5 amLODIPine Besylate 2.5 MG Oral Tablet (Norvasc) TAKE ONE TABLET BY MOUTH EVERY DAY 90 Tablet 3 Finasteride 5 MG Oral Tablet (Proscar) TAKE ONE TABLET BY MOUTH EVERY DAY 90 Tablet 3 metFORMIN HCl 1000 MG Oral Tablet (Glucophage) TAKE ONE TABLET BY MOUTH IN THE MORNING AND IN THE EVENING WITH MEALS 180 Tablet 3 Tamsulosin HCl 0.4 MG Oral Capsule (Flomax) TAKE ONE CAPSULE BY MOUTH EVERY DAY 90 Capsule 3 Omeprazole 20 MG Oral Capsule Delayed Release (PriLOSEC) take 1 capsule by mouth twice daily 30 minutes before a meal 180 Capsule 1 Lisinopril-hydroCHLOROthiazide 20-25 MG Oral Tablet TAKE ONE TABLET BY MOUTH IN THE MORNING 90 Tablet 3 Carbidopa-Levodopa ER 25-100 MG Oral Tablet Extended Release (Sinemet CR) TAKE ONE TABLET BY MOUTH AT BEDTIME 90 Tablet 1 Carbidopa-Levodopa ER 50-200 MG Oral Tablet Extended Release (Sinemet CR) Take 1 Tablet by mouth atbedtime. 90 Tablet 1 Current Facility-Administered Medications Medication Dose Route Frequency Provider Last Rate Last Admin albuterol sulfate (PROVENTIL) (2.5 MG/3ML) 0.083% inhalation solution 2.5 mg 2.5 mg Nebulizer Q4H PRN Toi Lynch MD 2.5 mg at 03/17/19 1256 ALLERGIES: Review of patient's allergies indicates: Allergen Reactions Iodinated Contrast Media Hives REVIEW OF SYSTEMS: CONSTITUTIONAL: No fevers, sweats, or chills FOCUSED PODIATRIC EXAM: Vascular: Pedal pulses palpable including dorsalis pedis and posterior tibial artery at 2/4 right. Capillary refill time is within normal limits to all toes. Mild chronic appearing edema to both lower legs. Nosignificant warmth. Diminished pedal hair growth. Neurologic: Sensation (light touch) intact to the right foot. Musculoskeletal: Pain is reported with palpation of the right plantar foot at skin lesion, sub 5th metatarsal head. Dermatological: Skin temperature, texture, and turgor are within normal limits. No open lesions. There is no erythema or ecchymosis noted. Hyperkeratotic skin with central white core to the right plantar foot sub met head 5. DIAGNOSTIC STUDIES: Hemoglobin AIC Results: Lab Results Component Value Date/Time HEMOGLOBIN A1C - [facility] 8.7 (H) 12/13/2022 09:57 AM HEMOGLOBIN A1C - [facility] 11.8 (H) 09/05/2021 09:48 AM HEMOGLOBIN A1C - [facility] 8.7 (H) 05/17/2021 12:49 PM HEMOGLOBIN A1C - [facility] 8.6 (H) 02/22/2020 09:28 AM HEMOGLOBIN A1C - [facility] 6.6 (H) 08/06/2019 10:25 AM HEMOGLOBIN A1C - [facility] 6.7 (H) 03/05/2019 08:38 AM ASSESSMENT: 1. Type 2 diabetes mellitus with stage 3 chronic kidney disease, with long-term current use of insulin, unspecified whether stage 3a or 3b CKD (HCC) 2. Porokeratosis PLAN: I suspect this is a porokeratosis. I recommended paring. If this is not helpful, he is to contact this office and we may consider cantharone to help scar in skin to prevent recurrence. Follow up: as needed Norma Ny DPM documented in this encounter Nursing Notes * Valencia Wiley LPN - 03/26/2023 10:48 AM EDT Pt presents for new visit, skin concern on bottom of R foot x 1-2 months, pain is 4-5/10 today. Hasnot tried any OTC remedies. Requesting it be 'cut out'. documented in this encounter Plan of Treatment Upcoming Encounters Date Type Department Care Team (Late st Contact Info) Description 07/11/2023 8:40 AM EST Office Visit Family Practice [facility] [address] [place] [address] Toi Lynch MD [address] [place] [address] 09/23/2023 1:40 PM EDT Office Visit Neurology [facility] [place] [address] [place] [address] Mark Palencia, [address] [place] [address] Health Maintenance Due Date Last Done Comments COVID-19 Vaccine (#1) 1950 Colonoscopy 1997 Sigmoidoscopy 1997 Zoster Vaccines (1 of 2) 2002 Hepatitis B (1 of 3 - Risk 3-dose series) 2012 Fecal Occult Blood Test 06/24/2018 06/24/19 18, 05/12/2015, 01/12/2014 Diabetic Foot Exam 08/23/2021 08/23/2020, 0 12/26/2016, 12/26/2015, Additional history exists DIABETES-EYE EXAM 10/16/2021 10/16/2020, , 09/01/2015, Additional history exists Depression Screening 11/20/2021 11/20/2020 Albumin/Creatinine Ratio 03/08/2022 021, 02/22/2020, 03/05/2019, Additional history exists Influenza Vaccine (FLU shot) (#1) 2023 Cologuard 03/09/2023 03/09/2020, 06/2019, 03/02/2020 Colorectal Cancer Screening 03/09/2023 GFR 06/15/2023 12/13/2022, 05/02, 05/17/2021, Additional history exists HbA1c 06/15/2023 12/13/2022, 10/2021, 05/17/2021, Additional history exists DTaP,Tdap,and Td Vaccines (2 - Td or Tdap) 11/11/2023 11/10/2013 B-12 12/14/2023 12/13/2022, 11/2020, 08/21/2020, Additional history exists CKD HGB USE SMARTSET 78582 12/14/202312/13, 05/17/2021, 05/17/2021, Additional history exists CKD PHOS USE SMARTSET 57823 12/14/2023 12/13/2022 Lipid Panel 12/14/2027 12/13/2022, 11/30, 03/08/2021, Additional history exists Hepatitis C Screening Completed 09/09/2014 AAA Screening Completed 06/24/2017 LUNG CANCER SCREENING - USE SMARTSET 73852 Completed 03/17/2019, 06/24/2017 Pneumococcal Vaccine: 65+ Years Completed 03/08/2021, 01/14/2019 GARDASIL-HPV IMMUNIZATION SERIES Aged Out No longer eligible based on patient's age to complete this topic MENINGOCOCCAL (MENACTRA/MENVEO) Aged Out No longer eligible based on patient's age to complete this topic documented as of this encounter Medical Devices Implanted Type Area Veneer Gluer Device Identifier Shelf Expiration Date Model / Serial / Lot Lens 21.0 Mx60e - [id number] - [id number] Implanted:Qty: 1 on 10/28/2019 by Lito Rodriguez MD at OR [facility] Right: Eye [employer] LOMB 06/01/2022 [id number]-60.0 / [id number] / [id number] Lens 20.5 Mx60e - [id number] - [id number] Implanted:Qty: 1 on 11/09/2019 by Lito Rodriguez MD at OR [facility] Left: Eye BAUSCH & LOMB 09/29/2021 [id number]-11.5 / [id number] / [id number] documented as of this encounter Visit Diagnoses Diagnosis Type 2 diabetes mellitus with stage 3 chronic kidney disease, with long-term current use of insulin, unspecified whether stage 3a or 3b CKD (HCC)- Primary Porokeratosis Other specified congenital anomaly of skin documented in this encounter Advance Directives Latest [...] the patient have Health Care Power of Windows System Admin? No Care Teams Cone Baker Machine Relationship Specialty Start Date End Date Toi Lynch MD [address] [facility] [place] [address] PCP - General Family Medicine 06/23/14 documented as of this encounter
--- OUTSIDE RECORDS SUMMARY | 2023-07-03 13:57 | External Medical Summary | Summary of Care ---
Author Name Unknown Organization [facility] Address [address] [place] [address] Phone [phone] Care Team Providers Care Receiving Associate Store Name Role Phone Toi Lynch MD Primary Care Provider + Reason for Visit * Reason Comments eRx-Medication Refill Encounter Details Date Type Department Care Team Description 02/22/2023 Refill Neurology [facility] [place] [address] [place] [address] Aga Ochoa PA-C [address] [facility] [place] [id number] Allergies Active Allergy Reactions Severity Noted Date Comments Iodinated Contrast Media 08/20/2013 Hives documented as of this encounter (statuses as of 02/25/2023) Medications Medication Sig Dispensed Refills Start Date End Date Status TYLENOL TABS 500 MG OR as needed 100 5 03/27/2001 Active MENS MULTIVITAMIN PLUS PO TABS one daily 0 Active NICORETTE 4 MG MT GUM occasional 0 Active INSULIN SYRINGE-NEEDLE U-100 31G X /16" 1 ML MISCIndications:D M type 2, goal [...] Tablet 3 02/10/2023 Active Carbidopa-Levodop a ER 50-200 MG Oral Tablet Extended Release (Sinemet CR) TAKE 1 TABLET AT 7AM, 1 TABLET AT 10AM AND 1 TABLET AT 4PM. 90 Tablet 0 02/18/2023 Active Carbidopa-Levodop a ER 25-100 MG Oral Tablet Extended Release (Sinemet CR) TAKE ONE TABLET BY MOUTH AT BEDTIME 90 Tablet 1 02/25/2023 Active Carbidopa-Levodop a ER 25-100 MG Oral Tablet Extended Release (Sinemet CR) TAKE ONE TABLET BY MOUTH AT BEDTIME 90 Tablet 1 08/02/2022 02/26/20 23 Discontinued Hospital, Clinic, or Other Facility Administered Medication Ordered Dose Route Frequency Start Date End Date Status albuterol sulfate (PROVENTIL) (2.5 MG/3ML) 0.083% inhalation solution 2.5 mgIndications:Chronic coughing 2.5 mg NEBULIZER Q4H PRN 01/20/2019 Active documented as of this encounter (statuses as of 02/25/2023) Active Problems Problem Noted Date Type 2 diabetes mellitus wit h stage 3 chronic kidney disease, with long-term current use of insulin 09/07/2021 Vitamin D deficiency 03/15/2021 Chronic kidney disease, stage 3a 021 Overview: Per CKD protocol Hypertensive kidney disease with stage 3 a chronic kidney disease 04/10/2020 Overview: Per CKD protocol Dyslipidemia, goal LDL below 100 020 Gastroesophageal reflux disease with eso phagitis 02/23/2020 DIANNE on CPAP 01/14/2019 Type 2 diabetes mellitus with chronic ki dney disease 08/17/2018 Chronic right-sided low back pain with r ight-sided sciatica 12/27/2017 Parkinson disease 10/29/2016 Intestinal postoperative nonabsorption 0 07/16/2016 Major depressive disorder, recurrent epi sode, moderate 04/30/2016 Morbid obesity due to excess calories Hip pain, right 12/26/2015 HTN, goal below 140/90 11/13/2015 Overview: Per HTN Protocol PUD (peptic ulcer disease) 09/14/2015 Anastomotic ulcer S/P gastric bypass 04/2015 Overview: Jun 2014 Routine general medical examination at a health care facility 11/10/2013 Overview: 02/19 cologuard WNL 08/14 EGD WNL 06/16 EGD fndings. biopsy WNL . Unable to fast for colonoscopy due to abd pain post gastric bypass. Erectile dysfunction 10/16/2013 Type 2 diabetes mellitus with hemoglobin A1c goal of less than 8.0% 08/20/2013 Overview: NEEDs discuss statin, have ANGELIKA, repeat CBC/iron/b12,fol 08/13 a1c 6.7. 12/12 6.0 06/14 9.3. 2011 microalb neg. ICD-10 update of inactive term S/P gastric bypass 08/20/2013 Overview: Surgery October 2012. Hx DIANNE Displacement of lumbar intervertebral di sc without myelopathy Overview: On disability Frozen shoulder Overview: left documented as of this encounter (statuses as of 02/25/2023) Resolved Problems Problem Noted Date Resolved Date Hypertensive kidney disease with chronic kidney disease stage III 01/07/2019 04/13/2020 Overview: Per CKD protocol Kidney disease, chronic, stage III (GFR 30-59 ml /min) 10/07/2016 01/14/2019 Overview: Per CKD protocol #1 HTN, goal below 140/80 08/20/2013 6 Overview: Per HTN Protocol documented as of this encounter (statuses as of 02/25/2023) Immunizations Name Administration Dates Next Due Pneumococcal [...] drink = 0.6 oz pur e alcohol) Food Insecurity Answer Date Recorded Within the past 12 months, y ou worried that your food would run out before you got money to buy more. Never true 11/20/2020 Within the past 12 months, t he food you bought just didn't last and you didn't have money to get more. Never true 11/20/2020 Sex Assigned at Date Recorded Not on file Job Start Date Occupation Industry Not on file Not on file Not on file documented as of this encounter Miscellaneous Notes * Telephone Encounter - Lori Desir [facility] - 02/25/2023 3:03 PM EDTSigned Prescriptions: Disp Refills Carbidopa-Levodopa ER 25-100 MG Oral Table*90 Tab*1 Sig: TAKE ONE TABLET BY MOUTH AT BEDTIMEAuthorizing Provider: Atul OCHOA User: LORI DESIR- * Telephone Encounter - Machelle Paiz CPhT - 02/25/2023 2:21 PM EDTPending Prescriptions: Disp Refills Carbidopa-Levodopa ER 25-100 MG Oral Table*90 Tab*0 Sig: TAKE ONE TABLET BY MOUTH AT BEDTIME * Telephone Encounter - Machelle Paiz CPhT - 02/25/2023 2:20 PM EDT Patient is up to date for office visits. Pending Prescriptions: Disp Refills Carbidopa-Levodopa ER 25-100 MG Oral Tabl*90 Tab*0 Sig: TAKE ONE TABLET BY MOUTH AT BEDTIME Last Visit: 02/08/2022 (in office), Visit date not found (telemedicine) Next Visit: 03/11/2023 If no future appointments scheduled, and last appointment is greater than a year ago, please schedule patient for a follow-up appointment Last date the medication was ordered: 08/02/2022 Pharmacy: [id number] [address] [facility] Is this request for a controlled substance?No it is not controlled. Urine Drug Screen:No results found for this or any previous visit. Patient Phone Numbers [facility] [phone] Labs: Lab Results Component Value Date/Time CREAT [...] AM HGBA1C 8.6 (H) 02/22/2020 09:28 AM * Telephone Encounter - Interface, E-Rx Ss Inbound - 02/24/2023 8:10 PM EDT Pending Prescriptions: Disp Refills Carbidopa-Levodopa ER 25-100 MG Oral Table*90 Tab*0 Sig: TAKE ONE TABLET BY MOUTH AT BEDTIME documented in this encounter Plan of Treatment Upcoming Encounters Date Type Specialty Care Team Description 03/11/2023 Office Visit Neurology Mark Palencia, [address] [facility], [place] [phone] 07/11/2023 Office Visit Family Medicine Toi Lynch MD [address] [place] [address] Health Maintenance Due Date Last Done Comments COVID-19 Vaccine (#1) 1950 Colonoscopy 1997 Sigmoidoscopy 1997 Zoster Vaccines (1 of 2) 2002 Fecal Occult Blood Test 06/24/2018 06/24/19 18, 05/12/2015, 01/12/2014 Diabetic Foot Exam 08/23/2021 08/23/2020, 0 12/26/2016, 12/26/2015, Additional history exists DIABETES-EYE EXAM 10/16/2021 10/16/2020, , 09/01/2015, Additional history exists Depression Screening 11/20/2021 11/20/2020 Albumin/Creatinine Ratio 03/08/20222 021, 02/22/2020, 03/05/2019, Additional history exists Influenza Vaccine (FLU shot) (#1) 2023 Cologuard 03/09/2023 03/09/2020, 1006/2019, 03/02/2020 Colorectal Cancer Screening 03/09/2023 GFR 06/15/2023 12/13/2022, 05/02, 05/17/2021, Additional history exists HbA1c 06/15/2023 12/13/2022, 04/0 10/2021, 05/17/2021, Additional history exists DTaP,Tdap,and Td Vaccines (2 - Td or Tdap) 11/11/2023 11/10/2013 B-12 12/14/2023 12/13/2022, 10/0 11/2020, 08/21/2020, Additional history exists CKD HGB USE SMARTSET 75583 12/14/202312/13, 05/17/2021, 05/17/2021, Additional history exists CKD PHOS USE SMARTSET 47811 12/14/2023 12/13/2022 Lipid Panel 12/14/2027 12/13/2022, 11/30, 03/08/2021, Additional history exists AAA Screening Completed 06/24/2017 LUNG CANCER SCREENING - USE SMARTSET 97147 Completed 03/17/2019, 06/24/2017 Pneumococcal Vaccine: 65+ Years Completed 03/08/2021, 01/14/2019 GARDASIL-HPV IMMUNIZATION SERIES Aged Out No longer eligible based on patient's age to complete this topic Hepatitis B Aged Out No longer eligi ble based on patient's age to complete this topic MENINGOCOCCAL (MENACTRA/MENVEO) Aged Out No longer eligible based on patient's age to complete this topic documented as of this encounter Medical Devices Implanted Type Area Blade Changer Device Identifier Shelf Expiration Date Model / Serial / Lot Lens 21.0 Mx60e - [id number] - [id number] Implanted:Qty: 1 on 10/28/2019 by Lito Rodriguez MD at OR [facility] Right: Eye [employer] 06/01/2022 [id number]-82.0 / [id number] / [id number] Lens 20.5 Mx60e - [id number] - [id number] Implanted:Qty: 1 on 11/09/2019 by Lito Rodriguez MD at OR [facility] Left: Eye [employer]CH [employer]OMB 09/29/2021 [id number]-79.5 / [id number] / [id number] documented as of this encounter Advance Directives [...] the patient have Health Care Power of Account Executive Healthcare? No Care Teams Receiving Associate Store Relationship Specialty Start Date End Date Toi Lynch MD [address] [place] [address] PCP - General Family Medicine 06/23/14 documented as of this encounter
--- OUTSIDE RECORDS SUMMARY | 2023-07-03 13:57 | External Medical Summary | Summary of Care ---
Author Name Unknown Organization [facility] Address [address] [place] [address] Phone [phone] Care Team Providers Care Machine Captain Name Role Phone Toi Lynch MD Primary Care Provider + Reason for Visit * Reason Comments eRx-Medication Refill Encounter Details Date Type Department Care Team Description 02/15/2023 Refill Neurology [facility] [place] [address] [place] [address] Aga Ochoa PA-C 21 [facility] [place] [phone] Allergies Active Allergy Reactions Severity Noted Date Comments Iodinated Contrast Media 08/20/2013 Hives documented as of this encounter (statuses as of 02/18/2023) Medications Medication Sig Dispensed Refills Start Date [...] EVERY DAY 90 Capsule 3 06/11/2022 Active Carbidopa-Levodop a ER 25-100 MG Oral Tablet Extended Release (Sinemet CR) TAKE ONE TABLET BY MOUTH AT BEDTIME 90 Tablet 1 08/02/2022 Active diphenhydrAMINE HCl 50 MG Oral Capsule [...] Tablet 0 02/18/2023 Active Carbidopa-Levodop a ER 50-200 MG Oral Tablet Extended Release Take 1 tablet 7am, 1 tablet 10am, 1 tablet 4pm 90 Tablet 5 08/19/2022 02/19/20 23 Discontinued Hospital, Clinic, or Other Facility Administered Medication Ordered Dose Route Frequency Start Date End Date Status albuterol sulfate (PROVENTIL) (2.5 MG/3ML) 0.083% inhalation solution 2.5 mgIndications:Chronic coughing 2.5 mg NEBULIZER Q4H PRN 01/20/2019 Active documented as of this encounter (statuses as of 02/18/2023) Active Problems Problem Noted Date Type 2 [...] as of this encounter (statuses as of 02/18/2023) Resolved Problems Problem Noted Date Resolved Date Hypertensive kidney disease with chronic kidney disease stage III 01/07/2019 04/13/2020 Overview: Per CKD protocol Kidney disease, chronic, stage III (GFR 30-59 ml /min) 10/07/2016 01/14/2019 Overview: Per CKD protocol #1 HTN, goal below 140/80 08/20/2013 6 Overview: Per HTN Protocol documented as of this encounter (statuses as of 02/18/2023) Immunizations Name Administration Dates Next Due Pneumococcal [...] encounter Miscellaneous Notes * Telephone Encounter - William Huynh RPh - 02/18/2023 11:48 AM EDT Signed Prescriptions: Disp Refills Carbidopa-Levodopa ER 50-200 MG Oral Table*90 Tab*0 Sig: TAKE 1 TABLET AT 7AM, 1 TABLET AT 10AM AND 1 TABLET AT 4PM.Authorizing Provider: Atul OCHOAUser: WILLIAM HUYNH * Telephone Encounter - William Huynh RPh - 02/18/2023 11:47 AM EDT Gave one refill until upcoming office visit on 03/11/2023 - last seen 02/08/2022. Thanks, William Huynh, PharmD, MS Clinical Pharmacist [facility]) (Formerly [facility]) [phone] 02/18/2023 11:49 AM * Telephone Encounter - NELLY Matt - 02/18/2023 11:01 AM EDT Pending Prescriptions: Disp Refills Carbidopa-Levodopa ER 50-200 MG Oral Table*90 Tab*0 Sig: TAKE 1 TABLET AT 7AM, 1 TABLET AT 10AM AND 1 TABLET AT 4PM. * Telephone Encounter - NELLY Matt Tech - 02/18/2023 11:01 AM EDT Patient is up to date for office visits. Pending Prescriptions: Disp Refills Carbidopa-Levodopa ER 50-200 MG Oral Tabl*90 Tab*0 Sig: TAKE 1 TABLET AT 7AM, 1 TABLET AT 10AM AND 1 TABLET AT 4PM. Last Visit: 02/08/2022 (in office), Visit date not found (telemedicine) Next Visit: 03/11/2023 If no future appointments scheduled, and last appointment is greater than a year ago, please schedule patient for a follow-up appointment Last date the medication was ordered: 08/19 [facility]acy: [id number] [address] [facility] Is this request for a controlled substance?No [...] Encounter - Interface, E-Rx Ss Inbound - 02/17/2023 6:22 PM EDT Pending Prescriptions: Disp Refills Carbidopa-Levodopa ER 50-200 MG Oral Table*90 Tab*0 Sig: TAKE 1TABLET AT 7AM, 1 TABLET AT 10AM AND 1 TABLET AT 4PM. documented in this encounter Plan of Treatment Upcoming Encounters Date Type Specialty Care Team Description 03/11/2023 Office Visit Neurology Mark Palencia DO [address] [place] [address] 07/11/2023 Office Visit Family Medicine Toi Lynch MD [address] [place] [address] Health Maintenance Due Date Last Done Comments COVID-19 Vaccine (#1) 1950 Colonoscopy 1997 Sigmoidoscopy 1997 Zoster Vaccines (1 of 2) 2002 Fecal Occult Blood Test 06/24/2018 06/24/19, 05/12/2015, 01/12/2014 Diabetic Foot Exam 08/23/2021 08/23/2020, [...] Additional history exists CKD HGB USE SMARTSET 78242 12/14/202312/13, 05/17/2021, 05/17/2021, Additional history exists CKD PHOS USE SMARTSET 87562 12/14/2023 12/13/2022 Lipid Panel 12/14/2027 12/13/2022, 11/30, 03/08/2021, Additional history exists AAA Screening Completed 06/24/2017 LUNG CANCER SCREENING - USE SMARTSET 78363 Completed 03/17/2019, 06/24/2017 Pneumococcal Vaccine: 65+ Years [...] this encounter Medical Devices Implanted Type Area Table Cover Folder Device Identifier Shelf Expiration Date Model / Serial / Lot Lens 21.0 Mx60e - [id number] - [id number] Implanted:Qty: 1 on 10/28/2019 by Lito Rodriguez MD at OR [facility] Right: Eye [employer]OM[employer] 06/01/2022 [id number]-97.0 / [id number] / [id number] Lens 20.5 Mx60e - [id number] - [id number] Implanted:Qty: 1 on 11/09/2019 by Lito Rodriguez MD at OR [facility] Left: Eye BAUSCH [employer] LOMB 09/29/2021 [id number]-92.5 / [id number] / [id number] documented as of this encounter Advance Directives [...] the patient have Health Care Power of Wheel Blocker? No Care Teams Machine Captain Relationship Specialty Start Date End Date Toi Lynch MD [address] [facility] [place] [address] PCP - General Family Medicine 06/23/14 documented as of this encounter
--- OUTSIDE RECORDS SUMMARY | 2023-07-03 13:57 | External Medical Summary | Summary of Care ---
Author Name Unknown Organization [facility] Address [address] [place] [address] Phone [phone] Care Team Providers Care Liquefaction Supervisor Name Role Phone Toi Lynch MD Primary Care Provider + Reason for Visit * Reason Comments Follow Up Encounter Details Date Type Department Care Team Description 03/11/2023 Office Visit Neurology [facility] [address] [place] [address] Mark Palencia, DO [address] [place] [address] Parkinson's disease without dyskinesia or fluctuating manifestations* Allergies Active Allergy Reactions Severity Noted Date Comments Iodinated Contrast Media 08/20/2013 Hives documented as of this encounter (statuses as of 03/11/2023) Medications Medication Sig Dispensed Refills Start Date End Date Status TYLENOL TABS 500 MG OR as needed 100 5 03/27/2001 Active MENS MULTIVITAMIN PLUS PO TABS one daily 0 Active NICORETTE 4 MG MT GUM occasional 0 Active INSULIN SYRINGE-NEEDLE U-100 31G X /16" 1 ML MISCIndications:DM type 2, goal A1c [...] 90 Tablet 3 02/10/2023 Active Carbidopa-Levodopa ER 50-200 MG Oral Tablet Extended Release (Sinemet CR) TAKE 1 TABLET AT 7AM, 1 TABLET AT 10AM AND 1 TABLET AT 4PM. 90 Tablet 0 02/18/2023 Active Carbidopa-Levodopa ER 25-100 MG Oral Tablet Extended Release (Sinemet CR) TAKE ONE TABLET BY MOUTH AT BEDTIME 90 Tablet 1 02/25/2023 Active Hospital, Clinic, or Other Facility Administered Medication Ordered Dose Route Frequency Start Date End Date Status albuterol sulfate (PROVENTIL) (2.5 MG/3ML) 0.083% inhalation solution 2.5 mgIndications:Chronic coughing 2.5 mg NEBULIZER Q4H PRN 01/20/2019 Active documented as of this encounter (statuses as of 03/11/2023) Active Problems Problem Noted Date Type 2 [...] as of this encounter (statuses as of 03/11/2023) Resolved Problems Problem Noted Date Resolved Date Hypertensive kidney disease with chronic kidney disease stage III 01/07/2019 04/13/2020 Overview: Per CKD protocol Kidney disease, chronic, stage III (GFR 30-59 ml /min) 10/07/2016 01/14/2019 Overview: Per CKD protocol #1 HTN, goal below 140/80 08/20/2013 6 Overview: Per HTN Protocol documented as of this encounter (statuses as of 03/11/2023) Immunizations Name Administration Dates Next Due Pneumococcal [...] on file documented as of this encounter Last Filed Vital Signs Vital Sign Reading Time Taken Comments Blood Pressure 112/64 03/11/2023 3:57 PM EDT Pulse 92 03/11/2023 3:57 PM EDT Temperature 36.6 C (97.9 F) 03/11/2023 3:57 PM ED T Respiratory Rate 20 03/11/2023 3:57 PM EDT Oxygen Saturation 95% 03/11/2023 3:57 PM EDT Inhaled Oxygen Concentration - - Weight 127.5 kg (281 lb) 03/11/2023 3:57 PM EDT Height - - Body Mass Index 38.1 08/05/2022 1:22 PM EST documented in this encounter Progress Notes * Mark Palencia, DO - 03/11/2023 4:14 PM EDT [place] [address] NAME: Car Salmon Date of : 1950 Date of Visit: 03/11/23 Chief Complaint: Chief Complaint Patient presents with Follow Up Subjective: Car Salmon is a 72 yo M with 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 He reports doing well w his current regiment. He denies any side effects. He was diagnosed in 2018. Tremor remains bother at particular times or when stressed. HOME MEDICATIONS : Current Outpatient Medications Medication Sig Dispense Refill [...] daily as needed for Rhinitis. Glucose Blood (Prover TechnologyUCH ULTRA BLUE) STRP Use up to 4 [...] THE MORNING 90 Tablet 3 Carbidopa-Levodopa ER 50-200 MG Oral Tablet Extended Release (Sinemet CR) TAKE 1 TABLET AT 7AM, 1 TABLET AT 10AM AND 1 TABLET AT 4PM. 90 Tablet 0 Carbidopa-Levodopa ER 25-100 MG Oral Tablet Extended Release (Sinemet CR) TAKE ONE TABLET BY MOUTH AT BEDTIME 90 Tablet 1 Current Facility-Administered Medications Medication Dose Route Frequency Provider Last Rate Last Admin albuterol sulfate (PROVENTIL) (2.5 MG/3ML) 0.083% inhalation solution 2.5 mg 2.5 mg Nebulizer Q4H PRN Toi Lynch MD 2.5 mg at 03/17/19 1256 Review of patient's allergies indicates: Allergen Reactions Iodinated Contrast Media Hives PHYSICAL EXAMINATION: Vital Signs: BP 112/64 (BP Site: Right Arm, BP Position: Sitting, BP Cuff Size: Large) | Pulse 92 | Temp 36.6 C (97.9 F) (Tympanic) | Resp 20 | Wt 127.5 kg (281 lb) | SpO2 95% | BMI 38.10 kg/m | BSA 2.55 m EXAM: Constitutional: appearance normally developed, well nourished Head and Face: normocephalic and atraumatic Eyes: normal lids, normal conjunctiva Neck: supple Respiratory: normal effort Cardiovascular: regular rhythm and normal pulses Abdomen: non distended Skin: no rashes, lesions, or ulcers noted Psychiatric: normal judgement and insight, normal mood and normal affect NEUROLOGIC EXAMINATION: Appearance: no acute distress Orientation: awake, alert and oriented x 3 Mental Status: alert Attention: normal Knowledge: appropriate Language: no aphasia Speech: soft dysarthria Cranial Nerves: CN 2 - no visual defect on confrontation and pupils round, equal, reactive to light CN 3, 4, 6 - extra-ocular movements intact and no nystagmus CN 5 - facial sensation intact CN 7 - masked facies CN 8 - intact hearing CN 9, 10 - palate symmetric CN 11 - good shoulder shrug CN 12 - tongue midline Gait: stable, no ataxia Coordination: prominent right pill rolling or resting tremor, + postural tremor Sensory: intact to light touch Muscle Tone: normal Muscle exam: / throughout LABORATORY: Labs reviewed and pertinent findings are indicated below: Review of prior Component Latest Ref Rng 12/13/2022 BUN 6 - 20 mg/dL 24 (H) Creatinine 0.6 - 1.2 mg/dL 1.2 Estimated Glomerular Filtration Rate >=60 mL/min 64 Sodium 135 - 146 mmol/L 141 Potassium 3.5 - 5.1 mmol/L 4.0 Chloride 98 - 107 mmol/L 102 CO2 22 - 32 mmol/L 24 Anion Gap 7 - 15 mmol/L 15 Glucose 70 - 120 mg/dL 159 (H) Calcium 8.4 - 10.2 mg/dL 9.5 Triglycerides <=174 mg/dL 220 (H) Cholesterol <200 mg/dL 157 HDL Cholesterol >39 mg/dL 43 Non-HDL Cholesterol <=159 mg/dL 114 LDL Cholesterol <=129 mg/dL 70 Phosphorus 2.5 - 4.8 mg/dL 3.4 Vitamin B12 232 - 1,245 pg/mL 316 ZINC 60 - 130 mcg/dL 59 (L) 25-Hydroxy Vitamin D >19 ng/mL 43 HGB 14.0 - 16.8 g/dL 12.3 (L) Vitamin B1 (Thiamine),B 78 - 185 nmol/L 104 PTH 15 - 65 pg/mL 34 LDL Cholesterol (Direct Measure) <=129 mg/dL 87 (H) High (L) LowDiagnostic Tests: Review of prior Radiology Studies: IMPRESSION / PLAN: Car was seen today for follow up. Diagnoses and all orders for this visit: Parkinson's disease without dyskinesia or fluctuating manifestations Car Salmon is a pleasant 72 year [...] additional test. Will arrange follow up in 6 months. Mark Palencia DO documented in this encounter Nursing Notes * Britany Kuo LPN - 03/11/2023 3:56 PM EDT Patient verified identity by spelling of last name and date. Chief Complaint Patient presents with Follow Up documented in this encounter Plan of Treatment Upcoming Encounters Date Type Specialty Care Team Description 07/11/2023 Office Visit Family Medicine Toi Lynch MD [address] [place] [address] 09/23/2023 Office Visit Neurology Mark Palencia, DO [address] [place] [address] Health Maintenance Due Date Last Done Comments [...] 05/17/2021, Additional history exists HbA1c 06/15/2023 12/13/2022, 040 10/2021, 05/17/2021, Additional history exists DTaP,Tdap,and Td Vaccines (2 - Td or Tdap) 11/11/2023 11/10/2013 B-12 12/14/2023 12/13/2022, 1011/2020, 08/21/2020, Additional history exists CKD HGB USE SMARTSET 12680 12/14/202312/13, 05/17/2021, 05/17/2021, Additional history exists CKD PHOS USE SMARTSET 40394 12/14/2023 12/13/2022 Lipid Panel 12/14/2027 12/13/2022, 11/30, 03/08/2021, Additional history exists Hepatitis C Screening Completed 09/09/2014 AAA Screening Completed 06/24/2017 LUNG CANCER SCREENING - USE SMARTSET 54029 Completed 03/17/2019, 06/24/2017 Pneumococcal Vaccine: 65+ Years [...] this encounter Medical Devices Implanted Type Area Vibrating Screen Operator Device Identifier Shelf Expiration Date Model / Serial / Lot Lens 21.0 Mx60e - [id number] - [id number] Implanted:Qty: 1 on 10/28/2019 by Lito Rodriguez MD at OR [facility] Right: Eye [employer]OM[employer] 06/01/2022 [id number]-59.0 / [id number] / [id number] Lens 20.5 Mx60e - [id number] - [id number] Implanted:Qty: 1 on 11/09/2019 by Lito Rodriguez MD at OR [facility] Left: Eye BA[employer]CH [employer] LOMB 09/29/2021 [id number]-05.5 / [id number] / [id number] documented as of this encounter Visit Diagnoses [...] the patient have Health Care Power of Insurance Representative? No Care Teams Liquefaction Supervisor Relationship Specialty Start Date End Date Toi Lynch MD [address] [place] [address] PCP - General Family Medicine 06/23/14 documented as of this encounter
--- OUTSIDE RECORDS SUMMARY | 2023-07-03 13:57 | External Medical Summary | Summary of Care ---
Author Name Unknown Organization [facility] Address [address] [place] [address] Phone [phone] Care Team Providers Care Millwright Name Role Phone Toi Lynch MD Primary Care Provider + Reason for Visit * Reason Comments eRx-Medication Refill Encounter Details Date Type Department Care Team Description 02/15/2023 Refill Neurology [facility] [place] [address] [place] [address] Aga Ochoa PA-C [address] [facility] [place] [phone] Allergies Active Allergy Reactions Severity Noted Date [...] Centralized Clinical Pharmacy Services (CCPS) (Formerly Telepharmacy) [phone] 02/18/2023 11:49 AM * Telephone Encounter - [...] was ordered: 08/19 Pharmacy: [facility] [address] [facility] Is this request for a controlled substance?No [...] Office Visit Neurology Mark Palencia DO 200 [place] [address] 07/11/2023 Office Visit Family Medicine Toi Lynch MD [address] [place] [address] Health Maintenance Due Date Last Done Comments [...] Additional history exists CKD HGB USE SMARTSET 68526 12/14/202312/13, 05/17/2021, 05/17/2021, Additional history exists CKD PHOS USE SMARTSET 43004 12/14/2023 12/13/2022 Lipid Panel 12/14/2027 12/13/2022, 11/30, 03/08/2021, Additional history exists AAA Screening Completed 06/24/2017 LUNG CANCER SCREENING - USE SMARTSET 19312 Completed 03/17/2019, 06/24/2017 Pneumococcal Vaccine: 65+ Years [...] this encounter Medical Devices Implanted Type Area Set Off Blocker Device Identifier Shelf Expiration Date Model / Serial / Lot Lens 21.0 Mx60e - [id number] - [id number] Implanted:Qty: 1 on 10/28/2019 by Lito Rodriguez MD at OR [facility] Right: Eye BAUSCH & LOMB 06/01/2022 [id number]-55.0 / [id number] / [id number] Lens 20.5 Mx60e - [id number] - [id number] Implanted:Qty: 1 on 11/09/2019 by Lito Rodriguez MD at OR [facility] Left: Eye BAUSCH & LOMB 09/29/2021 FU12D-95.5 / [id number] / [id number] documented as of this encounter Advance Directives [...] the patient have Health Care Power of Press Operator Meat? No Care Teams Millwright Relationship Specialty Start Date End Date Toi Lynch MD 132 [facility] [place] [address] PCP - General Family Medicine 06/23/14 documented as of this encounter
--- OUTSIDE RECORDS SUMMARY | 2023-07-03 13:57 | External Medical Summary | Summary of Care ---
Author Name Unknown Organization [facility] Address [address] [place] [address] Phone [phone] Care Team Providers Care Partner Management Consultant Name Role Phone Toi Lynch MD Primary Care Provider + Reason for Visit * Reason Comments eRx-Medication Refill Encounter Details Date Type Department Care Team Description 03/18/2023 Refill Neurology [facility] [address] [place] [address] Mark Palencia, [address] [place] [address] Allergies Active Allergy Reactions Severity Noted Date Comments Iodinated Contrast Media 08/20/2013 Hives documented as of this encounter (statuses as of 03/18/2023) Medications Medication Sig Dispensed Refills Start Date End Date Status TYLENOL TABS 500 MG OR as needed 100 5 03/27/2001 Active MENS MULTIVITAMIN PLUS PO TABS one daily 0 Active NICORETTE 4 MG MT GUM occasional 0 Active INSULIN SYRINGE-NEEDLE U-100 31G X 5/16" 1 ML MISCIndications:D M type 2, goal [...] TABLET BY MOUTH EVERY DAY 90 Tablet 12/25/2022 Active metFORMIN HCl 1000 MG Oral [...] as of this encounter (statuses as of 03/18/2023) Active Problems Problem Noted Date Type 2 [...] as of this encounter (statuses as of 03/18/2023) Resolved Problems Problem Noted Date Resolved Date Hypertensive kidney disease with chronic kidney disease stage III 01/07/2019 04/13/2020 Overview: Per CKD protocol Kidney disease, chronic, stage III (GFR 30-59 ml /min) 10/07/2016 01/14/2019 Overview: Per CKD protocol #1 HTN, goal below 140/80 08/20/2013 6 Overview: Per HTN Protocol documented as of this encounter (statuses as of 03/18/2023) Immunizations Name Administration Dates Next Due Pneumococcal [...] encounter Miscellaneous Notes * Telephone Encounter - Darcie Johns MD [...] Centralized Clinical Pharmacy Services (CCPS) (formerly Telepharmacy) [phone] 03/18/2023 3:22 PM documented in this encounter Plan of Treatment Upcoming Encounters Date Type Specialty Care Team Description 03/26/2023 Office Visit Podiatry Norma Ny, DPM [address] [place] [phone] 07/11/2023 Office Visit Family Medicine Toi Lynch MD [address] [place] [address] 09/23/2023 Office Visit Neurology Talha, Mark Barclay, DO 200 [facility] [place] [address] Health Maintenance Due Date Last Done Comments [...] Additional history exists CKD HGB USE SMARTSET 51303 12/14/202312/13, 05/17/2021, 05/17/2021, Additional history exists CKD PHOS USE SMARTSET 83295 12/14/2023 12/13/2022 Lipid Panel 12/14/2027 12/13/2022, 11/30, 03/08/2021, Additional history exists Hepatitis C Screening Completed 09/09/2014 AAA Screening Completed 06/24/2017 LUNG CANCER SCREENING - USE SMARTSET 11964 Completed 03/17/2019, 06/24/2017 Pneumococcal Vaccine: 65+ Years [...] this encounter Medical Devices Implanted Type Area Shactor Helper Device Identifier Shelf Expiration Date Model / Serial / Lot Lens 21.0 Mx60e - [id number] - [id number] Implanted:Qty: 1 on 10/28/2019 by Lito Rodriguez MD at OR [facility] Right: Eye BAUSCH & LOMB 06/01/2022 [id number]-08.0 / [id number] / [id number] Lens 20.5 Mx60e - [id number] - [id number] Implanted:Qty: 1 on 11/09/2019 by Lito Rodriguez MD at OR [facility] Left: Eye BAUSCH & LOMB 09/29/2021 TC29I-64.5 / [id number] / [id number] documented as of this encounter Advance Directives [...] the patient have Health Care Power of Historical Society Director? No Care Teams Partner Management Consultant Relationship Specialty Start Date End Date Toi Lynch MD [address] [place] [address] PCP - General Family Medicine 06/23/14 documented as of this encounter
--- OUTSIDE RECORDS SUMMARY | 2023-07-03 13:57 | External Medical Summary | Summary of Care ---
Author Name Unknown Organization [facility] Address [address] [place] [address] Phone [phone] Care Team Providers Care Education Site Manager Name Role Phone Toi Lynch MD Primary Care Provider + Encounter Details Date Type Department Care Team ([facility] Contact Info) Description 03/24/2023 Patient Reported Data Patient Survey Ortho OBERD Allergies Active Allergy Reactions Criticality Noted Date Comments Iodinated Contrast Media 08/20/2013 Hives documented as of this encounter (statuses as of 03/24/2023) Medications Medication Sig Dispensed Refills Start Date [...] hemoglobin A1c goal of less than 8.0% ([facility]) 39 Unit in AM 35n PM before [...] as of this encounter (statuses as of 03/24/2023) Active Problems Problem Noted Date Diagnosed Date [...] as of this encounter (statuses as of 03/24/2023) Resolved Problems Problem Noted Date Diagnosed Date Resolved Date Hypertensive kidney disease with chronic kidney disease stage III 01/07/2019 04/13/2020 Overview: Per CKD protocol Kidney disease, chronic, sta ge III (GFR 30-59 ml/min) 10/07/2016 01/14/2019 Overview: Per CKD protocol #1 HTN, goal below 140/80 08/20/201311/15 Overview: Per HTN Protocol documented as of this encounter (statuses as of 03/24/2023) Immunizations Name Administration Dates Next Due Pneumococcal [...] on file documented as of this encounter Plan of Treatment Upcoming Encounters Date Type Department Care Team (Late st Contact Info) Description 03/26/2023 11:00 AM EDT Office Visit Podiatry [facility] [address] [facility] [place] [address] Norma Ny DPM [address] [facility] [place] [address] 07/11/2023 8:40 AM EST Office Visit Family Practice [facility] [address] [facility] [place] [address] Toi Lynch MD 132 [facility] [place] [address] 09/23/2023 1:40 PM EDT Office Visit Neurology [facility] 200 [facility] [place] [address] Mark Palencia, 200 [facility] [place] [address] Health Maintenance Due Date Last Done Comments [...] Additional history exists CKD HGB USE SMARTSET 01126 12/14/202312/13, 05/17/2021, 05/17/2021, Additional history exists CKD PHOS USE SMARTSET 38182 12/14/2023 12/13/2022 Lipid Panel 12/14/2027 12/13/2022, 11/30, 03/08/2021, Additional history exists Hepatitis C Screening Completed 09/09/2014 AAA Screening Completed 06/24/2017 LUNG CANCER SCREENING - USE SMARTSET 08182 Completed 03/17/2019, 06/24/2017 Pneumococcal Vaccine: 65+ Years Completed 03/08/2021, 01/14/2019 GARDASIL-HPV IMMUNIZATION SERIES Aged Out No longer eligible based on patient's age to complete this topic MENINGOCOCCAL (MENACTRA/MENVEO) Aged Out No longer eligible based on patient's age to complete this topic documented as of this encounter Medical Devices Implanted Type Area Role Player Device Identifier Shelf Expiration Date Model / Serial / Lot Lens 21.0 Mx60e - [id number] - [id number] Implanted:Qty: 1 on 10/28/2019 by Lito Rodriguez MD at OR [facility] Right: Eye BAUSCH & LOMB 06/01/2022 MC55E-36.0 / [id number] / [id number] Lens 20.5 Mx60e - [id number] - [id number] Implanted:Qty: 1 on 11/09/2019 by Lito Rodriguez MD at OR [facility] Left: Eye BAUSCH & LOMB 09/29/2021 SM38Y-37.5 / [id number] / [id number] documented as of this encounter Advance Directives [...] the patient have Health Care Power of Retail Buyer? No Care Teams Education Site Manager Relationship Specialty Start Date End Date Toi Lynch MD 132 [facility] [place] [address] PCP - General Family Medicine 06/23/14 documented as of this encounter
--- OUTSIDE RECORDS SUMMARY | 2023-07-03 13:57 | External Medical Summary | Summary of Care ---
Author Name Unknown Organization [facility] Address [address] [place] [address] Phone [phone] Care Team Providers Care Asset Protection Lead Name Role Phone Toi Lynch MD Primary Care Provider + Encounter Details Date Type Department Care Team ([facility] Contact Info) Description 03/24/2023 Patient Reported [...] hemoglobin A1c goal of less than 8.0% ([facility]) 39 Unit in AM 35n PM before [...] 03/26/2023 11:00 AM EDT Office Visit Podiatry [facility] 132 [facility] [place] [address] Norma Ny DPM 400 [facility] [place] [address] 07/11/2023 8:40 AM EST Office Visit Family Practice [facility] 132 [facility] [place] [address] Toi Lynch MD 132 [facility] [place] [address] 09/23/2023 1:40 PM EDT Office Visit Neurology [facility] 200 [facility] [place] [address] Mark Palencia, 200 [facility] [place] [address] Health Maintenance Due Date Last Done Comments [...] Additional history exists CKD HGB USE SMARTSET 28333 12/14/202312/13, 05/17/2021, 05/17/2021, Additional history exists CKD PHOS USE SMARTSET 28367 12/14/2023 12/13/2022 Lipid Panel 12/14/2027 12/13/2022, 11/30, 03/08/2021, Additional history exists Hepatitis C Screening Completed 09/09/2014 AAA Screening Completed 06/24/2017 LUNG CANCER SCREENING - USE SMARTSET 28646 Completed 03/17/2019, 06/24/2017 Pneumococcal Vaccine: 65+ Years Completed 03/08/2021, 01/14/2019 GARDASIL-HPV IMMUNIZATION SERIES Aged Out No longer eligible based on patient's age to complete this topic MENINGOCOCCAL (MENACTRA/MENVEO) Aged Out No longer eligible based on patient's age to complete this topic documented as of this encounter Medical Devices Implanted Type Area Visual Educator Device Identifier Shelf Expiration Date Model / Serial / Lot Lens 21.0 Mx60e - [id number] - [id number] Implanted:Qty: 1 on 10/28/2019 by Lito Rodriguez MD at OR [facility] Right: Eye BAUSCH & LOMB 06/01/2022 HH89P-77.0 / [id number] / [id number] Lens 20.5 Mx60e - [id number] - [id number] Implanted:Qty: 1 on 11/09/2019 by Lito Rodriguez MD at OR [facility] Left: Eye BAUSCH & LOMB 09/29/2021 EZ94F-22.5 / [id number] / [id number] documented as of this encounter Advance Directives [...] the patient have Health Care Power of Resident Manager? No Care Teams Asset Protection Lead Relationship Specialty Start Date End Date Toi Lynch MD 132 [facility] [place] [address] PCP - General Family Medicine 06/23/14 documented as of this encounter
--- OUTSIDE RECORDS SUMMARY | 2023-07-03 13:57 | External Medical Summary | Summary of Care ---
Author Name Unknown Organization [facility] Address [address] [place] [address] Phone [phone] Care Team Providers Care Arbor Press Operator Name Role Phone Toi Buckner MD Primary Care Provider + Reason for Visit * Reason Comments eRx-Medication Refill Encounter Details Date Type Department Care Team Description 02/09/2023 Refill Family Practice [facility] [address] [facility] [place] [address] Toi Buckner MD [address] [facility] [place] [address] HTN, goal below 140/80 Allergies Active Allergy Reactions Severity Noted Date Comments Iodinated Contrast Media 08/20/2013 Hives documented as of this encounter (statuses as of 02/10/2023) Medications Medication Sig Dispensed Refills Start Date [...] for Itching. 30 Capsule 0 08/05/2022 Active Carbidopa-Levodop a ER 50-200 MG Oral Tablet Extended Release Take 1 tablet 7am, 1 tablet 10am, 1 tablet 4pm 90 Tablet 5 08/19/2022 Active NovoLIN 70/30 ReliOn (70-30) 100 UNIT/ML [...] THE MORNING 90 Tablet 3 02/10/2023 Active Lisinopril-hydroC HLOROthiazide 20-25 MG Oral TabletIndications :HTN, goal below 140/80 Take 1 Tablet by mouth in the morning. 90 Tablet 0 11/18/2022 02/11/20 23 Discontinued Hospital, Clinic, or Other Facility Administered Medication Ordered Dose Route Frequency Start Date End Date Status albuterol sulfate (PROVENTIL) (2.5 MG/3ML) 0.083% inhalation solution 2.5 mgIndications:Chronic coughing 2.5 mg NEBULIZER Q4H PRN 01/20/2019 Active documented as of this encounter (statuses as of 02/10/2023) Active Problems Problem Noted Date Type 2 [...] as of this encounter (statuses as of 02/10/2023) Resolved Problems Problem Noted Date Resolved Date Hypertensive kidney disease with chronic kidney disease stage III 01/07/2019 04/13/2020 Overview: Per CKD protocol Kidney disease, chronic, stage III (GFR 30-59 ml /min) 10/07/2016 01/14/2019 Overview: Per CKD protocol #1 HTN, goal below 140/80 08/20/2013 6 Overview: Per HTN Protocol documented as of this encounter (statuses as of 02/10/2023) Immunizations Name Administration Dates Next Due Pneumococcal [...] encounter Miscellaneous Notes * Telephone Encounter - Renay Adkins RPh - 02/10/2023 3:13 PM EDTSigned Prescriptions: Disp Refills Lisinopril-hydroCHLOROthiazide 20-25 MG Or*90 Tab*3 Sig: TAKE ONE TABLET BY MOUTH IN THE MORNINGAuthorizing Provider: TOI BUCKNER User: RENAY ADKINS documented in this encounter Plan of Treatment Upcoming Encounters Date Type Specialty Care Team Description 03/11/2023 Office Visit Neurology Mark Palencia DO [address] [place] [address] 07/11/2023 Office Visit Family Medicine Toi Buckner MD [address] [place] [address] Health Maintenance Due Date Last Done Comments [...] Additional history exists CKD HGB USE SMARTSET 83002 12/14/202312/13, 05/17/2021, 05/17/2021, Additional history exists CKD PHOS USE SMARTSET 17465 12/14/2023 12/13/2022 Lipid Panel 12/14/2027 12/13/2022, 11/30, 03/08/2021, Additional history exists AAA Screening Completed 06/24/2017 LUNG CANCER SCREENING - USE SMARTSET 08270 Completed 03/17/2019, 06/24/2017 Pneumococcal Vaccine: 65+ Years [...] this encounter Medical Devices Implanted Type Area Air Brake Man Device Identifier Shelf Expiration Date Model / Serial / Lot Lens 21.0 Mx60e - [id number] - [id number] Implanted:Qty: 1 on 10/28/2019 by Lito Rodriguez MD at OR [facility] Right: Eye BAUSCH & LOMB 06/01/2022 FL56E-65.0 / [id number] / [id number] Lens 20.5 Mx60e - [id number] - [id number] Implanted:Qty: 1 on 11/09/2019 by Lito Rodriguez MD at OR [facility] Left: Eye BAUSCH & LOMB 09/29/2021 GY23E-06.5 / [id number] / [id number] documented as of this encounter Visit Diagnoses Diagnosis HTN, goal below 140/80 Unspecified essential hypertension documented in this encounter Advance Directives Latest [...] the patient have Health Care Power of Employee Health Nurse? No Care Teams Arbor Press Operator Relationship Specialty Start Date End Date Toi Buckner MD [address] [place] [address] PCP - General Family Medicine 06/23/14 documented as of this encounter
--- OUTSIDE RECORDS SUMMARY | 2023-07-03 13:57 | External Medical Summary | Summary of Care ---
Author Name Unknown Organization [facility] Address [address] [place] [address] Phone [phone] Care Team Providers Care Grill Attendant Name Role Phone Toi Lynch MD Primary Care Provider + Encounter Details Date Type Department Care Team ([facility] Contact Info) Description 03/24/2023 Patient Reported [...] hemoglobin A1c goal of less than 8.0% ([facility]) 39 Unit in AM 35n PM before [...] 03/26/2023 11:00 AM EDT Office Visit Podiatry [facility] 132 [facility] [place] [address] Norma Ny DPM 400 [facility] [place] [address] 07/11/2023 8:40 AM EST Office Visit Family Practice [facility] 132 [facility] [place] [address] Toi Lynch MD 132 [facility] [place] [address] 09/23/2023 1:40 PM EDT Office Visit Neurology [facility] 200 [facility] [place] [address] Mark Palencia, 200 [facility] [place] [address] Health Maintenance Due Date Last Done Comments [...] Additional history exists CKD HGB USE SMARTSET 36289 12/14/202312/13, 05/17/2021, 05/17/2021, Additional history exists CKD PHOS USE SMARTSET 09120 12/14/2023 12/13/2022 Lipid Panel 12/14/2027 12/13/2022, 11/30, 03/08/2021, Additional history exists Hepatitis C Screening Completed 09/09/2014 AAA Screening Completed 06/24/2017 LUNG CANCER SCREENING - USE SMARTSET 70261 Completed 03/17/2019, 06/24/2017 Pneumococcal Vaccine: 65+ Years Completed 03/08/2021, 01/14/2019 GARDASIL-HPV IMMUNIZATION SERIES Aged Out No longer eligible based on patient's age to complete this topic MENINGOCOCCAL (MENACTRA/MENVEO) Aged Out No longer eligible based on patient's age to complete this topic documented as of this encounter Medical Devices Implanted Type Area Device Engineer Device Identifier Shelf Expiration Date Model / Serial / Lot Lens 21.0 Mx60e - [id number] - [id number] Implanted:Qty: 1 on 10/28/2019 by Lito Rodriguez MD at OR [facility] Right: Eye BAUSCH & LOMB 06/01/2022 CS25M-22.0 / [id number] / [id number] Lens 20.5 Mx60e - [id number] - [id number] Implanted:Qty: 1 on 11/09/2019 by Lito Rodriguez MD at OR [facility] Left: Eye BAUSCH & LOMB 09/29/2021 WN73I-97.5 / [id number] / [id number] documented as of this encounter Advance Directives [...] the patient have Health Care Power of Haul Cane Brakeman? No Care Teams Grill Attendant Relationship Specialty Start Date End Date Toi Lynch MD 132 [facility] [place] [address] PCP - General Family Medicine 06/23/14 documented as of this encounter
--- OUTSIDE RECORDS SUMMARY | 2023-07-03 13:57 | External Medical Summary | Summary of Care ---
Author Name Unknown Organization [facility] Address [address] [place] [address] Phone [phone] Care Team Providers Care Plate Put In Worker Name Role Phone Toi Lynch MD Primary Care Provider + Encounter Details Date Type Department Care Team ([facility] Contact Info) Description 03/24/2023 Patient Reported Data [...] hemoglobin A1c goal of less than 8.0% ([facility]) 39 Unit in AM 35n PM [...] 03/26/2023 11:00 AM EDT Office Visit Podiatry [facility] 132 [facility] [place] [address] Norma Ny DPM 400 [facility] [place] [address] 07/11/2023 8:40 AM EST Office Visit Family Practice [facility] 132 [facility] [place] [address] Toi Lynch MD 132 [facility] [place] [address] 09/23/2023 1:40 PM EDT Office Visit Neurology [facility] 200 [facility] [place] [address] Mark Palencia, 200 [facility] [place] [address] Health Maintenance Due Date Last Done Comments [...] Additional history exists CKD HGB USE SMARTSET 77061 12/14/202312/13, 05/17/2021, 05/17/2021, Additional history exists CKD PHOS USE SMARTSET 11902 12/14/2023 12/13/2022 Lipid Panel 12/14/2027 12/13/2022, 11/30, 03/08/2021, Additional history exists Hepatitis C Screening Completed 09/09/2014 AAA Screening Completed 06/24/2017 LUNG CANCER SCREENING - USE SMARTSET 95449 Completed 03/17/2019, 06/24/2017 Pneumococcal Vaccine: 65+ Years Completed 03/08/2021, 01/14/2019 GARDASIL-HPV IMMUNIZATION SERIES Aged Out No longer eligible based on patient's age to complete this topic MENINGOCOCCAL (MENACTRA/MENVEO) Aged Out No longer eligible based on patient's age to complete this topic documented as of this encounter Medical Devices Implanted Type Area Community Health Worker Device Identifier Shelf Expiration Date Model / Serial / Lot Lens 21.0 Mx60e - [id number] - [id number] Implanted:Qty: 1 on 10/28/2019 by Lito Rodriguez MD at OR [facility] Right: Eye BAUSCH & LOMB 06/01/2022 DH59J-39.0 / [id number] / [id number] Lens 20.5 Mx60e - [id number] - [id number] Implanted:Qty: 1 on 11/09/2019 by Lito Rodriguez MD at OR [facility] Left: Eye BAUSCH & LOMB 09/29/2021 VE56G-28.5 / [id number] / [id number] documented as of this encounter Advance Directives [...] the patient have Health Care Power of Voting Machine Mechanic? No Care Teams Plate Put In Worker Relationship Specialty Start Date End Date Toi Lynch MD 132 [facility] [place] [address] PCP - General Family Medicine 06/23/14 documented as of this encounter
--- OUTSIDE RECORDS SUMMARY | 2023-07-03 13:58 | External Medical Summary | Summary of Care ---
Author Name Unknown Organization [facility] Address [address] [place] [address] Phone [phone] Care Team Providers Care Systems Design Engineer Name Role Phone Toi Buckner MD Primary Care Provider + Reason for Visit * Reason Comments eRx-Medication Refill Encounter Details Date Type Department Care Team Description 01/25/2023 Refill Family [facility] [address] [facility] [address] Toi Buckner MD [address] [facility] [place] [address] BPH with obstruction/lower urinary tract symptoms Allergies Active Allergy Reactions Severity Noted Date Comments Iodinated Contrast Media 08/20/2013 Hives documented as of this encounter (statuses as of 01/25/2023) Medications Medication Sig Dispensed Refills Start Date [...] at 7pm. 60 Tablet 5 10/17/2022 Active Omeprazole 20 MG Oral Capsule Delayed Release (PriLOSEC) TAKE ONE CAPSULE BY MOUTH TWICE DAILY 30 MINUTES BEFORE a MEAL 180 Capsule 0 11/05/2022 Active Lisinopril-hydroC HLOROthiazide 20-25 MG Oral TabletIndications :HTN, goal below 140/80 Take 1 Tablet by mouth in the morning. 90 Tablet 0 11/18/2022 Active amLODIPine Besylate 2.5 MG Oral Tablet [...] EVERY DAY 90 Capsule 3 01/25/2023 Active Tamsulosin HCl 0.4 MG Oral Capsule (Flomax)Indicatio ns:BPH with obstruction/lower urinary tract symptoms TAKE ONE CAPSULE BY MOUTH EVERY DAY 90 Capsule 3 01/08/2022 01/26/20 23 Discontinued Hospital, Clinic, or Other Facility Administered Medication Ordered Dose Route Frequency Start Date End Date Status albuterol sulfate (PROVENTIL) (2.5 MG/3ML) 0.083% inhalation solution 2.5 mgIndications:Chronic coughing 2.5 mg NEBULIZER Q4H PRN 01/20/2019 Active documented as of this encounter (statuses as of 01/25/2023) Active Problems Problem Noted Date Type 2 [...] as of this encounter (statuses as of 01/25/2023) Resolved Problems Problem Noted Date Resolved Date Hypertensive kidney disease with chronic kidney disease stage III 01/07/2019 04/13/2020 Overview: Per CKD protocol Kidney disease, chronic, stage III (GFR 30-59 ml /min) 10/07/2016 01/14/2019 Overview: Per CKD protocol #1 HTN, goal below 140/80 08/20/2013 6 Overview: Per HTN Protocol documented as of this encounter (statuses as of 01/25/2023) Immunizations Name Administration Dates Next Due Pneumococcal [...] encounter Miscellaneous Notes * Telephone Encounter - oNrma Henry RPh - 01/25/2023 9:54 PM EDTSigned Prescriptions: Disp Refills Tamsulosin HCl 0.4 MG Oral Capsule (Flomax)90 Cap*3 Sig: TAKE ONE CAPSULE BY MOUTH EVERY DAYAuthorizing Provider: TOI BUCKNER User: NORMA HENRY- documented in this encounter Plan of Treatment Upcoming Encounters Date Type Specialty Care Team Description 03/11/2023 Office Visit Neurology Mark Palencia DO [address] [place] [address] 07/11/2023 Office Visit Family Medicine Toi Buckner MD [address] [place] [address] Health Maintenance Due Date Last Done Comments COVID-19 Vaccine (#1) 1950 Colonoscopy 1997 Sigmoidoscopy 1997 Zoster Vaccines (1 of 2) 2002 Fecal Occult Blood Test 06/24/2018 06/24/19 18, 05/12/2015, 01/12/2014 DIABETES-FOOT EXAM 08/23/2021 08/23/2020, 0 12/26/2016, 12/26/2015, Additional history exists DIABETES-EYE EXAM 10/16/2021 10/16/2020, , 09/01/2015, Additional history exists Depression Screening, Annual for Pts 12 and Over 11/20/2021 11/20/2020 Albumin/Creatinine Ratio 03/08/2022 021, 02/22/2020, [...] Additional history exists CKD HGB USE SMARTSET 46257 12/14/202312/13, 05/17/2021, 05/17/2021, Additional history exists CKD PHOS USE SMARTSET 11670 12/14/2023 12/13/2022 Lipid Panel 12/14/2027 12/13/2022, 11/30, 03/08/2021, Additional history exists AAA Screening Completed 06/24/2017 LUNG CANCER SCREENING - USE SMARTSET 04403 Completed 03/17/2019, 06/24/2017 Pneumococcal Vaccine: 65+ Years [...] this encounter Medical Devices Implanted Type Area Environmental Director Device Identifier Shelf Expiration Date Model / Serial / Lot Lens 21.0 Mx60e - [id number] - [id number] Implanted:Qty: 1 on 10/28/2019 by Lito Rodriguez MD at OR [facility] Right: Eye [employer]OM[employer] 06/01/2022 [id number]-49.0 / [id number] / [id number] Lens 20.5 Mx60e - [id number] - [id number] Implanted:Qty: 1 on 11/09/2019 by Lito Rodriguez MD at OR [facility] Left: Eye BAUSCH & LOMB 09/29/2021 [id number]-68.5 / [id number] / [id number] documented as of this encounter Visit Diagnoses Diagnosis BPH with obstruction/lower urinary tract symptoms Hypertrophy of prostate with urinary obstruction and other lower urinary tract symptoms (LUTS) documented in this encounter Advance Directives Latest [...] the patient have Health Care Power of Coding Team Lead? No Care Teams Systems Design Engineer Relationship Specialty Start Date End Date Toi Buckner MD [address] [place] [address] PCP - General Family Medicine 06/23/14 documented as of this encounter
--- OUTSIDE RECORDS SUMMARY | 2023-07-03 13:58 | External Medical Summary | Summary of Care ---
Author Name Unknown Organization [facility] Address [address] [place] [address] Phone [phone] Care Team Providers Care Human Resources Operations Manager Name Role Phone Toi Buckner MD Primary Care Provider + Reason for Visit * Reason Comments eRx-Medication Refill Encounter Details Date Type Department Care Team Description 01/28/2023 Refill Family Practice [facility] [address] [facility] [place] [address] Toi Buckner MD [address] [facility] [place] [address] Gastroesophageal reflux disease with esophagitis without hemorrhage*; Encounter for long-term (current) use of medications Allergies Active Allergy Reactions Severity Noted Date Comments Iodinated Contrast Media 08/20/2013 Hives documented as of this encounter (statuses as of 01/29/2023) Medications Medication Sig Dispensed Refills Start Date [...] Vitamin D3 50 MCG (1999 UT) Oral CapsuleIndication s:Vitamin D deficiency TAKE [...] at 7pm. 60 Tablet 5 10/17/2022 Active Lisinopril-hydroC HLOROthiazide 20-25 MG Oral TabletIndications [...] a meal 180 Capsule 1 01/29/2023 Active Omeprazole 20 MG Oral Capsule Delayed Release (PriLOSEC) TAKE ONE CAPSULE BY MOUTH TWICE DAILY 30 MINUTES BEFORE a MEAL 180 Capsule 0 11/05/2022 01/30/20 23 Discontinued Hospital, Clinic, or Other Facility Administered Medication Ordered Dose Route Frequency Start Date End Date Status albuterol sulfate (PROVENTIL) (2.5 MG/3ML) 0.083% inhalation solution 2.5 mgIndications:Chronic coughing 2.5 mg NEBULIZER Q4H PRN 01/20/2019 Active documented as of this encounter (statuses as of 01/29/2023) Active Problems Problem Noted Date Type 2 [...] 8.0% 08/20/2013 Overview: NEEDs discuss statin, have NAGELIKA, repeat CBC/iron/b12,fol 08/13 a1c 6.7. 12/12 6.0 06/14 9.3. 2011 microalb neg. ICD-10 update of inactive term S/P gastric bypass 08/20/2013 Overview: Surgery October 2012. Hx DIANNE Displacement of lumbar intervertebral di sc without myelopathy Overview: On disability Frozen shoulder Overview: left documented as of this encounter (statuses as of 01/29/2023) Resolved Problems Problem Noted Date Resolved Date Hypertensive kidney disease with chronic kidney disease stage III 01/07/2019 04/13/2020 Overview: Per CKD protocol Kidney disease, chronic, stage III (GFR 30-59 ml /min) 10/07/2016 01/14/2019 Overview: Per CKD protocol #1 HTN, goal below 140/80 08/20/2013 6 Overview: Per HTN Protocol documented as of this encounter (statuses as of 01/29/2023) Immunizations Name Administration Dates Next Due Pneumococcal [...] encounter Miscellaneous Notes * Telephone Encounter - Whitney Adam RPh - 01/29/2023 11:30 AM EDTSigned Prescriptions: Disp Refills Omeprazole 20 MG Oral Capsule Delayed Rele*180 Ca*1 Sig: take 1 capsule by mouth twice daily 30 minutes before a mealAuthorizing Provider: TOI BUCKNER User: WHITNEY ADAM * Telephone Encounter - Whitney Adam RPh - 01/29/2023 11:28 AM EDT Per refill protocol patient needs magnesium lab on file within the past 2 years while using PPIs. Lab work ordered. Patient may obtain with next routine labs. Thanks, Whitney Adam, R.Ph. Clinical Pharmacist [facility] [phone] ext [phone] 01/29/2023,11:29 AM documented in this encounter Plan of Treatment Upcoming Encounters Date Type Specialty Care Team Description 03/11/2023 Office Visit Neurology Mark Palencia DO [address] [place] [address] 07/11/2023 Office Visit Family Medicine Toi Buckner MD [address] [place] [address] Scheduled Orders Name Type Priority Associated Diagnoses Orde r Schedule MAGNESIUM Lab Routine Gastroesophageal reflux disease with esophagitis without hemorrhage Encounter for long-term (current) use of medications Expected: 07/11/2023 (Approximate), Expires: 01/30/2024 Health Maintenance Due Date Last Done Comments COVID-19 Vaccine (#1) 1950 Colonoscopy 1997 Sigmoidoscopy 1997 Zoster Vaccines (1 of 2) 2002 Fecal Occult Blood Test 06/24/2018 06/24/19 18, 05/12/2015, 01/12/2014 DIABETES-FOOT EXAM 08/23/2021 08/23/2020, 0 12/26/2016, 12/26/2015, Additional history exists DIABETES-EYE EXAM 10/16/2021 10/16/2020, , 09/01/2015, Additional history exists Depression Screening, Annual for Pts 12 and Over 11/20/2021 11/20/2020 Albumin/Creatinine Ratio 03/08/202203/08/2 021, 02/22/2020, 03/05/2019, Additional history exists Influenza Vaccine (FLU shot) (#1) 2023 Cologuard 03/09/2023 03/09/2020, 1006/2019, 03/02/2020 Colorectal Cancer Screening 03/09/2023 GFR 06/15/2023 12/13/2022, 05/02, 05/17/2021, Additional history exists HbA1c 06/15/2023 12/13/2022, 0410/2021, 05/17/2021, Additional history exists DTaP,Tdap,and Td Vaccines (2 - Td or Tdap) 11/11/2023 11/10/2013 B-12 12/14/2023 12/13/2022, 1011/2020, 08/21/2020, Additional history exists CKD HGB USE SMARTSET 28654 12/14/202312/13, 05/17/2021, 05/17/2021, Additional history exists CKD PHOS USE SMARTSET 62630 12/14/2023 12/13/2022 Lipid Panel 12/14/2027 12/13/2022, 11/30, 03/08/2021, Additional history exists AAA Screening Completed 06/24/2017 LUNG CANCER SCREENING - USE SMARTSET 82203 Completed 03/17/2019, 06/24/2017 Pneumococcal Vaccine: 65+ Years [...] this encounter Medical Devices Implanted Type Area Socially Responsible Investment Adviser Device Identifier Shelf Expiration Date Model / Serial / Lot Lens 21.0 Mx60e - [id number] - [id number] Implanted:Qty: 1 on 10/28/2019 by Lito Rodriguez MD at OR [facility] Right: Eye [employer]OM[employer] 06/01/2022 [id number]-89.0 / [id number] / [id number] Lens 20.5 Mx60e - [id number] - [id number] Implanted:Qty: 1 on 11/09/2019 by Lito Rodriguez MD at OR [facility] Left: Eye BAUSCH [employer] LOMB 09/29/2021 [id number]-97.5 / [id number] / [id number] documented as of this encounter Visit Diagnoses Diagnosis Gastroesophageal reflux disease with esophagitis without hemorrhage- Primary Encounter for long-term (current) use of medications Encounter for long-term (current) use of other medications documented in this encounter Advance Directives Latest [...] the patient have Health Care Power of Derrick Boat Lever Operator? No Care Teams Human Resources Operations Manager Relationship Specialty Start Date End Date Toi Buckner MD [address] [place] [address] PCP - General Family Medicine 06/23/14 documented as of this encounter
--- OUTSIDE RECORDS SUMMARY | 2023-07-03 13:58 | External Medical Summary | Summary of Care ---
Author Name Unknown Organization [facility] Address [address] [place] [address] Phone [phone] Care Team Providers Care Grated Cheese Maker Name Role Phone Toi Lynch MD Primary Care Provider + Reason for Visit * Reason Onset Date Comments Health Maintenance 01/21/2023 Encounter Details Date Type Department Care Team Description 01/21/2023 Telephone Family Practice [facility] [address] [facility] [place] [address] Toi Lynch MD [address] [facility] [address] Health Maintenance Allergies Active Allergy Reactions Severity Noted Date Comments Iodinated Contrast Media 08/20/2013 Hives documented as of this encounter (statuses as of 01/21/2023) Medications Medication Sig Dispensed Refills Start Date [...] Pain, Severe. 20 Tablet 0 05/17/2021 Active Tamsulosin HCl 0.4 MG Oral Capsule (Flomax)Indications :BPH with obstruction/lower urinary tract symptoms TAKE ONE CAPSULE BY MOUTH EVERY DAY 90 Capsule 3 01/08/2022 Active Vitamin D3 50 MCG (2000 UT) Oral CapsuleIndications: Vitamin D deficiency TAKE ONE CAPSULE BY MOUTH EVERY DAY 90 Capsule 3 06/11/2022 Active Carbidopa-Levodopa ER 25-100 MG Oral Tablet Extended Release (Sinemet CR) TAKE ONE TABLET BY MOUTH AT BEDTIME 90 Tablet 1 08/02/2022 Active diphenhydrAMINE HCl 50 MG Oral Capsule (Benadryl)Indicatio ns:Rash,Itch of skin Take 1 Capsule by mouth at bedtime as needed for Itching. 30 Capsule 0 08/05/2022 Active Carbidopa-Levodopa ER 50-200 MG Oral Tablet [...] a MEAL 180 Capsule 0 11/05/2022 Active Lisinopril-hydroCHL OROthiazide 20-25 MG Oral TabletIndications:H TN, goal below 140/80 Take 1 Tablet by [...] WITH MEALS 180 Tablet 3 12/30/2022 Active Hospital, Clinic, or Other Facility Administered Medication Ordered Dose Route Frequency Start Date End Date Status albuterol sulfate (PROVENTIL) (2.5 MG/3ML) 0.083% inhalation solution 2.5 mgIndications:Chronic coughing 2.5 mg NEBULIZER Q4H PRN 01/20/2019 Active documented as of this encounter (statuses as of 01/21/2023) Active Problems Problem Noted Date Type 2 [...] as of this encounter (statuses as of 01/21/2023) Resolved Problems Problem Noted Date Resolved Date Hypertensive kidney disease with chronic kidney disease stage III 01/07/2019 04/13/2020 Overview: Per CKD protocol Kidney disease, chronic, stage III (GFR 30-59 ml /min) 10/07/2016 01/14/2019 Overview: Per CKD protocol #1 HTN, goal below 140/80 08/20/2013 6 Overview: Per HTN Protocol documented as of this encounter (statuses as of 01/21/2023) Immunizations Name Administration Dates Next Due Pneumococcal [...] encounter Miscellaneous Notes * Telephone Encounter - Delmi Milner LPN - 01/21/2023 1:31 PM EDT Care Gaps Comprehensive Care Outreach Last Office/Telemedicine Visit: 12/13/2022 (in office), Visit date not found (telemedicine) Next Office Visit: 07/11/2023 Hemoglobin AIC Results: Lab Results Component Value Date/Time HEMOGLOBIN A1C - [facility] 8.7 (H) 12/13/2022 09:57 AM HEMOGLOBIN A1C - [facility] 11.8 (H) 09/05/2021 09:48 AM HEMOGLOBIN A1C - [facility] 8.7 (H) 05/17/2021 12:49 PM HEMOGLOBIN A1C - [facility] 8.6 (H) 02/22/2020 09:28 AM HEMOGLOBIN A1C - [facility] 6.6 (H) 08/06/2019 10:25 AM HEMOGLOBIN A1C - [facility] 6.7 (H) 03/05/2019 08:38 AM Reviewed Health Maintenance below: Health Maintenance Topic Date Due COVID-19 Vaccine (1) Never done Zoster Vaccines (1 of 2) Never done DIABETES-FOOT EXAM 08/23/2021 DIABETES-EYE EXAM 10/16/2021 Depression Screening, Annual for Pts 12 and Over 11/20/2021 Albumin/Creatinine Ratio 03/08/2022 Colorectal Cancer Screening 03/09/2023 Influenza Vaccine (FLU shot) (1) 01/31/2023 Eye Foot Urine already ordered Colon oct cologuard will be due awv Care Gap Outreach Action Taken: Unable to reach fast busy documented in this encounter Plan of Treatment Upcoming Encounters Date Type Specialty Care Team Description 03/11/2023 Office Visit Neurology Mark Palencia DO [address] [place] [address] 07/11/2023 Office Visit Family Medicine Toi Lynch MD [address] [place] [address] Health Maintenance Due Date Last Done Comments COVID-19 Vaccine (#1) 1950 Colonoscopy 1997 Sigmoidoscopy 1997 Zoster Vaccines (1 of 2) 2002 Fecal Occult Blood Test 06/24/2018 06/24/19 18, 05/12/2015, 01/12/2014 DIABETES-FOOT EXAM 08/23/2021 08/23/2020, 0 12/26/2016, 12/26/2015, Additional history exists DIABETES-EYE EXAM 10/16/2021 10/16/2020, , 09/01/2015, Additional history exists Depression Screening, Annual for Pts 12 and Over 11/20/2021 11/20/2020 Albumin/Creatinine Ratio 03/08/20222 021, 02/22/2020, [...] Additional history exists CKD HGB USE SMARTSET 10753 12/14/202312/13, 05/17/2021, 05/17/2021, Additional history exists CKD PHOS USE SMARTSET 37458 12/14/2023 12/13/2022 Lipid Panel 12/14/2027 12/13/2022, 11/30, 03/08/2021, Additional history exists AAA Screening Completed 06/24/2017 LUNG CANCER SCREENING - USE SMARTSET 75523 Completed 03/17/2019, 06/24/2017 Pneumococcal Vaccine: 65+ Years [...] this encounter Medical Devices Implanted Type Area Electric Cutter Operator Device Identifier Shelf Expiration Date Model / Serial / Lot Lens 21.0 Mx60e - [id number] - [id number] Implanted:Qty: 1 on 10/28/2019 by Lito Rodriguez MD at OR [facility] Right: Eye [employer]OMB 06/01/2022 [id number]-35.0 / [id number] / [id number] Lens 20.5 Mx60e - [id number] - [id number] Implanted:Qty: 1 on 11/09/2019 by Lito Rodriguez MD at OR [facility] Left: Eye BAUSCH [employer] LOMB 09/29/2021 [id number]-00.5 / [id number] / [id number] documented as of this encounter Advance Directives [...] the patient have Health Care Power of Reimbursement Analyst? No Care Teams Grated Cheese Maker Relationship Specialty Start Date End Date Toi Lynch MD [address] [place] [address] PCP - General Family Medicine 06/23/14 documented as of this encounter
--- NOTE | 2023-07-03 14:00 | XRay Report ---
XR shoulder LT min 2V routine CLINICAL HISTORY: fall TECHNIQUE: 3 views of the left shoulder were obtained. Comparison: None available at the time of this dictation. FINDINGS: There is no evidence of an acute fracture. Joint spaces are well-preserved. The overlying soft tissue s are unremarkable. The visualized portions of the lungs are clear. IMPRESSION: No evidence of acute osseous injury. ACT 112: Negative or not required by law. Electronically signed by: Jonatan Gale M.D. 07/03/2023 1:58 PM
--- NOTE | 2023-07-03 15:21 | Hospitalist Progress Note ---
Date of Service July 03, 2023 Assessment & Plan (1) Weakness: (2) Recurrent falls: (3) Parkinson disease: Plan: Patient is 73 year old male with PMH Parkinson's, DM II, CKD III, HTN, BPH, GERD, DIANNE, depression, chronic anemia, and others listed below presented to ER with complaint of several falls today. Ambulates with use of cane at baseline Recurrent falls H/O Parkinson's disease --CT head: No acute intracranial abnormality --CT C-spine: No acute fracture --Pelvics x-ray: No acute fracture --Left shoulder x-ray:No evidence of acute osseous injury. Likely deconditioning due to COVID infection and comorbidities Fall precautions PT/OT eval Continue home Sinemet Follows with [facility] neurology outpatient Plan to discharge to rehab facility as able Case management to help with discharge planning (4) COVID-19: Plan: [employer] respiratory panel + SARS-CoV-2 PCR Chest x-ray: No acute infiltrate Normal procalcitonin Check CRP Saturating well on room air Conservative management Continue isolation precautions Incentive spirometry, flutter valve (5) Hypoglycemia: (6) Diabetes mellitus, type II: Plan: Random glucose in ER 59. Patient has not eaten today. He is unsure if he took his morning insulin Uncontrolled diabetes mellitus Type II HbA1c 10.2 Admits to being forgetful at times Diabetic diet Hold home metformin and Novolin 12/29 Continue insulin while hospitalized --adjust to minimize hypoglycemia Monitor BGs (7) HTN (hypertension): Plan: Continue amlodipine, lisinopril, HCTZ Monitor BP (8) CKD (chronic kidney disease), stage III: Plan: Baseline 1.2 Cr 1.3 today Monitor renal functions avoid nephrotoxic agents when possible (9) GERD (gastroesophageal reflux disease): Plan: Continue PPI (10) BPH (benign prostatic hyperplasia): Plan: Continue tamsulosin, finasteride (11) DIANNE (obstructive sleep apnea): Plan: CPAP at bedtime (12) Chronic anemia: Plan: Hgb: 12. Baseline Hgb 12 Monitor H&H DVT Px Lovenox SQ CODE STATUS Full Code Disposition Rehab as able Admission and Anticipated Discharge Date Admission Date: July 02, 2023 Subjective Patient is seen and examined at bedside States having left shoulder pain which she attributes to fall Admits to have some rhinorrhea Denies any chest pain, dyspnea, dizziness, nausea, vomiting, abdominal pain Saturating well on room air Review of Systems Review of Systems: All systems reviewed & are unremarkable except as noted in Subjective Physical Exam Physical Exam: Physical Exam: Vitals signs as noted above General Appearance:Obese, no apparent distress Head: normocephalic, Atraumatic Eyes: normal inspection, EOMI Neck: supple, Trachea midline Respiratory/Chest: Normal breath sounds, CTA, No accessory muscle use Cardiovascular: S1, S2, No murmur Abdomen/GI:Soft, Non tender, Bowel sounds present Extremities/Musculoskeletal:normal inspection, 1+ Pedal edema Neurologic/Psych:AAOX3, grossly no focal neurological deficits, +Resting tremor Skin: normal color, warm Results & Data Results & Data Vital Signs (Past 12 Hours) Vital Signs Temp Pulse Pulse Resp BP Pulse Ox O2 Del Method 07/03/23 08:11 36.4 C L 71 18 137/77 92 CPAP 07/03/23 08:05 CPAP 07/03/23 07:45 73 16 92 FiO2 07/03/23 08:11 07/03/23 08:05 07/03/23 07:45 21 Laboratory Results Short CBC 07/02/23 07/03/23 Range/Units 15:00 06:52 WBC 5.45 4.35 L (4.8-10.8) K/ul Hgb 12.2 L 11.0 L (14.0-18.0) g/dl Hct 37.0 L 34.2 L (42.0-52.0) % Plt Count 187 159 (130-400) K/uL BMP 07/02/23 07/03/23 15:00 06:52 Sodium 137 135 L Potassium 3.7 3.5 Chloride 103 100 Carbon Dioxide 27 28 BUN 21 18 Creatinine 1.39 1.34 Glucose 59 L 168 H Calcium 9.1 8.7 Urine 07/02/23 Range/Units 15:32 Urine Color Yellow Urine Appearance Clear (Clear) Urine pH 5.5 (4.5-7.5) Ur Specific [place] 1.022 (1.000-1.030) Urine Protein 3+ H (Negative) Urine Glucose (UA) Trace H (Negative)
[2023-07-04] MEDS: FLUTICASONE PROPIONATE NA SPR 16 GM BTL SCH ×2 (01:04→08:24)
[2023-07-04] MEDS ORDERED: MICONAZOLE NITRATE POWDER 85 GM EXT PRN (04:15)
[2023-07-04] MEDS: CARBIDOPA/LEVODOPA 50/200MG EXT REL TAB PO SCH ×2 (06:31→10:33)
[2023-07-04 07:40] LABS: Hemoglobin 10.9 g/dl (14.0-18.0); Mean Corpuscular Volume 81.9 fL (80.0-100.0); Mean Platelet Volume 10.5 fL (9.4-12.4); Platelet Count 160 K/uL (130-400); RDW Coefficient of Variation 13.9 % (11.5-14.5); RDW Standard Deviation 41.3 fL (36.4-46.3); Red Blood Count 4.03 M/uL (4.70-6.10); White Blood Count 4.38 K/ul (4.8-10.8)
[2023-07-04 07:58] LABS: BUN Creatinine Ratio 13.4 (10-20); C Reactive Protein 3.93 mg/dl (0-0.5); Calcium 8.4 mg/dl (8.6-10.3); Creatinine Clr Calc Pharmacy 64.2 ml/min; Est GFR (African American) 57.2 ml/min; Est GFR (Non-African American) 49.3 ml/min; Potassium 3.5 mmol/L (3.5-5.1)
[2023-07-04] MEDS: LISINOPRIL/HCTZ 20/25MG 1 TAB PO SCH (08:22)
[2023-07-04] MEDS: ATORVASTATIN 20 MG TAB PO SCH (08:22)
[2023-07-04] MEDS: FINASTERIDE 5 MG TAB PO SCH (08:23)
[2023-07-04] MEDS: amLODIPine BESYLATE 5 MG TAB PO SCH (08:23)
[2023-07-04] MEDS: ASPIRIN 81 MG ECTAB PO SCH (08:24)
[2023-07-04] MEDS: PANTOprazole 40 MG TAB PO SCH (08:24)
[2023-07-04] MEDS: TAMSULOSIN HCL 0.4 MG CAP PO SCH (08:24)
[2023-07-04] MEDS: ENOXAPARIN INJ 40 MG/0.4 ML SYR SQ SCH (08:25)
[2023-07-04] MEDS: LANTUS PER UNIT CHARGE SQ SCH (08:44)
[2023-07-04] MEDS: INSULIN ASPART PER UNIT CHARGE SC SCH ×2 (08:44→12:49)
[2023-07-04] MEDS ORDERED: CHOLECALCIFEROL 25 MCG (1000 UNITS) TAB PO SCH (09:00)
[2023-07-04] MEDS: CARBIDOPA/LEVODOPA 25/100MG TAB PO SCH (12:42)
--- NOTE | 2023-07-07 17:04 | Discharge Summary ---
Date of Service July 04, 2023 Admission HPI Per Admitting Provider Patient is 73 year old male with PMH Parkinson's, DM II, CKD III, HTN, BPH, GERD, DIANNE, depression, chronic anemia, and others listed below presented to ER with complaint of several falls today. History obtained from patient as well as outpatient chart review. Patient states history ambulatory dysfunction and uses cane and hangs onto furniture and puckett at home to ambulate at baseline. He states he usually will have a couple of falls a month. Patient states when he does fall he is unable to get himself up and typically needs to call EMS for lift assist. Patient states today was feeling fatigued. He states he was ambulating through his house when he felt like he was falling forward and had fell to the floor. He states just generally feels weaker than baseline but denies any unilateral weakness. He was unable to get himself up and called EMS. Patient states had 3-4 falls today all requiring EMS for lift assist. The last fall they suggested patient be evaluated to ER. Patient denies any dizziness, chest pain, shortness of breath prior to falls. Denies hitting head or loss of consciousness. Patient reports chronic rhinorrhea and does not feel like he has had increased rhinorrhea. He denies any fever, chills, cough, shortness of breath. He is currently living home alone as his is currently in custodial. States last week his COVID-19 and he was visiting her daily. Denies history of COVID-19 vaccine. Denies fever/chills, diaphoresis, N/V/D/C, [place], dizziness, syncope, vision changes, neck pain, CP, SOB, cough, sore throat, otalgia, abdominal pain, paresthesias, extremity edema, rashes, urinary symptoms. Admission Exam Per Admitting Provider General: no distress, obese Head: normocephalic, atraumatic Eyes: PERRL, EOM's intact, conjunctiva non-injected, anicteric ENT: normal inspection external ears, nose, +clear rhinorrhea, mucous membranes moist Neck: supple, trachea midline, non-tender Lungs: clear, no respiratory distress, no wheezing/rhonchi/rales CV: RRR, no murmur, no pretibial edema Abd: normal BS, soft, non-tender Ext: no cyanosis, no calf tenderness Neuro: A&O x 3, normal affect, +tremor, +pill rolling, strength 4/5 bilateral lower extremities, upper extremities 5/5 strength bilaterally Skin: warm, dry Principal Diagnosis Recurrent falls COVID-19 infection Discharge Exam Constitutional: WD/WN, vitals as above, NAD, sitting up in bed, pleasant, conversing easily Respiratory: normal respiratory effort, lungs clear to auscultation, no wheeze, rales, rhonchi. Normal insp/exp effort, no accessory muscle use Cardiovascular: RRR, no murmur, no edema Vessels: no JVD or carotid bruit Chest: normal inspection of chest Abdomen: normal bowel sounds, soft, nontender, no hepatosplenomegaly Musculoskeletal: no cyanosis or clubbing, extremities motor strength 5/5 Skin: no rashes, warm and dry normal turgor Neurologic: PERRL, EOMI, accommodation nl, no face palsy, no dysarthria CN's II- XI intact bilaterally and moves all extremities Psychiatric: A+Ox3, euthymic affect Discharge Data Allergies Allergy/AdvReac Type Severity Reaction Status Date / Time Iodinated Contrast Media Allergy Intermediate Hives Verified 07/02/23 16:20 Consultations 07/02/23 15:59 ED Decision to Admit Stat Ordered Studies 07/02/23 13:00 CT cervical spine wo con Stat CT head/brain wo con Stat Diabetes Follow up Diabetes Follow-up Needed for HgbA1c >9% Hospital Course (1) Weakness: (2) Recurrent falls: (3) Parkinson disease: Patient is 73 year old male with PMH Parkinson's, DM II, CKD III, HTN, BPH, GERD, DIANNE, depression, chronic anemia, and others listed below presented to ER with complaint of several falls today. Ambulates with use of cane at baseline Recurrent falls H/O Parkinson's disease --CT head: No acute intracranial abnormality --CT C-spine: No acute fracture --Pelvics x-ray: No acute fracture --Left shoulder x-ray:No evidence of acute osseous injury. Likely deconditioning due to COVID infection and comorbidities Fall precautions PT/OT eval Continue home Sinemet Follows with [facility] [place] neurology outpatient PT OT evaluation was done. Patient was accepted to [facility], acute rehab. (4) COVID-19: [employer] respiratory panel + SARS-CoV-2 PCR Chest x-ray: No acute infiltrate Normal procalcitonin Check CRP Saturating well on room air Conservative management Continue isolation precautions Incentive spirometry, flutter valve Patient saturated well in room air throughout the hospitalization. (5) Hypoglycemia: (6) Diabetes mellitus, type II: Random glucose in ER 59. Patient has not eaten today. He is unsure if he took his morning insulin Uncontrolled diabetes mellitus Type II HbA1c 10.2 No changes made to his home regimen. (7) HTN (hypertension): Continue amlodipine, lisinopril, HCTZ Monitor BP (8) CKD (chronic kidney disease), stage III: Creatinine at baseline (9) GERD (gastroesophageal reflux disease): Continue PPI (10) BPH (benign prostatic hyperplasia): Continue tamsulosin, finasteride (11) DIANNE (obstructive sleep apnea): CPAP at bedtime (12) Chronic anemia: Patient discharged to acute rehab. Total Time Total Time Spent Total Time Spent (In Minutes): 35 Total Time Includes: Examination of the Patient, Discharge Planning, Medication Reconciliation, Communication With Other Providers and Other Discharge Plan Discharge Items Patient Disposition: Home - Self-Care Reason For Visit: WEAKNESS Discharge Diagnosis: Recurrent falls COVID-19 infection Activity: Resume your previous activity Non-emergency contact: Primary Care Provider Call non-emergency contact if: you have any medication questions and your symptoms worsen Follow-up/Referrals: Toi Lynch MD [Primary Care Provider] - Diet: Carb Consistent or DM2 Addtl Attending Provider Instructions: You were admitted to the hospital with generalized weakness. You are found to have COVID-19 infection. Please follow-up with your primary care doctor after discharge from the rehab. No medication changes has been done. Pending Studies at Discharge: No Stand-Alone Forms: My [employer], Smoking Cessation Medications and DC Order Prescriptions: Continued atorvastatin 20 mg Tablet 20 mg PO DAILY albuterol sulfate 2.5 mg /3 mL (0.083 %) Solution For Nebulization 2.5 mg INHALATION DIRECTED PRN (Reason: Shortness Of Breath Or Wheezing) diphenhydramine HCl 50 mg Capsule 50 mg PO HS PRN (Reason: Itching) cetirizine [Zyrtec] 10 mg Tablet 10 mg PO DAILY PRN (Reason: RHINITIS) carbidopa-levodopa 50-200 mg tablet extended release 1 tab PO TID Rx Instructions: TAKES AT 0700, 1000, & 1600 Novolin 70/30 U-100 Insulin 100 unit/mL (70-30) suspension See Rx Instructions .ROUTE .COMPLEX Rx Instructions: TAKES 32 UNITS QAM, THEN 32 UNITS QPM. amlodipine 2.5 mg tablet 2.5 mg PO DAILY aspirin 81 mg Tablet,Delayed Release (Dr/Ec) 81 mg PO DAILY tramadol 50 mg Tablet 50 mg PO Q6H PRN (Reason: Pain) acetaminophen [Tylenol Extra Strength] 500 mg Tablet 500 - 1,000 mg PO DIRECTED PRN (Reason: PAIN/FEVER) tamsulosin 0.4 mg capsule 0.4 mg PO DAILY nicotine (polacrilex) [Nicorette] 4 mg Gum 4 mg BUCCAL DIRECTED PRN (Reason: Smoking Cessation) metformin 1,000 mg tablet 1,000 mg PO BIDM omeprazole 20 mg capsule,delayed release(DR/EC) 20 mg PO BID Rx Instructions: TAKE 30 MINUTES PRIOR TO MEALS lisinopril-hydrochlorothiazide 20-25 mg Tablet 1 tab PO DAILY carbidopa-levodopa 25-100 mg tablet 1 tab PO TID Rx Instructions: TAKES AT 1300, 1900, & HS finasteride 5 mg tablet 5 mg PO DAILY cholecalciferol (vitamin D3) [Vitamin D3] 50 mcg (2,000 unit) Capsule 50 mcg PO DAILY Men's 50 Plus Multivitamin 400-20-370 mcg Tablet 1 tab PO DAILY Discharge Orders: Discharge Order (Routine); Ordered 07/04/23 Ordered By: Antonio Earl/Other Patient Handouts: Managing Type 1 Diabetes Admission Data Admit Date/Time: 07/02/23 17:40 Attending Provider: Antonio Almonte Admit Provider: Cody Norman Primary Care Provider: Toi Lynch Other Providers: Cody Norman; [facility] Other Interventions: Discharge Summary Assessment (RN) Last Done: 07/04/23 11:35
== END 2023-07-04 14:15 | DRG 179 ==
LOC: ED 12:33 → SUATTDRO 17:40 → EDINP 17:40 → 3N 19:21